=== PATIENT | male | born 1945 | race Two or more races ===

== ENCOUNTER 2016-09-01 12:26 | Inpatient (IN) | payer MEDICARE, OTHER ==
[~2016-09-01] VITALS: Ht 167.6 cm; Wt 76.7 kg
[~2016-09-01 12:26] MED LIST: MULT1TAB52 PO; PANT40TA3 PO; Propranolol Hcl PO
[2016-09-01] MEDS ORDERED: IV NORMAL SALINE 1000ML BAG 1,000 ML IV ONE (12:45)
[2016-09-01] MEDS ORDERED: ONDANSETRON PF 4 MG/2 ML VIAL. IV ONE (12:45)
[2016-09-01] MEDS ORDERED: IPRATRPIUM/ALBUTEROL 0.5/2.5MG 3 ML NEBU. NEB ONE (12:45)
[2016-09-01] MEDS ORDERED: ASPIRIN ENTERIC COATED 325 MG TABLET.DR. PO ONE (12:45)
[2016-09-01 13:13] LABS: BASO # 0.1 x10^3/uL (0.0-0.2); BASO % 0 % (0-3); EOS % 0 % (0-3); HEMATOCRIT 37.8 % (39.0-53.0); HEMOGLOBIN 13.2 g/dL (13.0-17.5); LYMPH # 0.6 x10^3/uL (1.0-4.8); LYMPH % 3 % (24-48); MEAN CORPUSCULAR HEMOGLOBIN 36 pg (25-35); MEAN CORPUSCULAR HGB CONC 35 g/dL (31-37); MEAN CORPUSCULAR VOLUME 105 fL (79-100); MONO % 8 % (0-9); NEUT % 89 % (31-73); PLATELET COUNT 71 x10^3/uL (140-400); RED BLOOD COUNT 3.61 x10^6/uL (4.30-5.70); RED CELL DISTRIBUTION WIDTH 15.7 % (11.5-14.5); WHITE BLOOD COUNT 18.4 x10^3/uL (4.0-11.0)
[2016-09-01 13:19] LABS: CALCIUM 8.2 mg/dL (8.5-10.1); CREATININE 1.2 mg/dL (0.7-1.3); POTASSIUM 3.9 mmol/L (3.5-5.1)
[2016-09-01 13:23] LABS: INR 1.6 (0.8-1.1)
[2016-09-01 13:25] LABS: ALBUMIN/GLOBULIN RATIO 0.8 (1.0-1.7); MAGNESIUM 1.3 mg/dL (1.8-2.4); TOTAL BILIRUBIN 3.9 mg/dL (0.2-1.0); TOTAL PROTEIN 6.9 g/dL (6.4-8.2)
--- NOTE | 2016-09-01 13:31 | PHYS DOC ---
Past Medical History Past Medical History: Hypertension, Hypothyroid Past Surgical History: Other Additional Past Surgical Histo: esophogeal varisces Alcohol Use: Occasionally Drug Use: Marijuana Adult General Chief Complaint Chief Complaint: NAUSEA/VOMITING/DIARRHA HPI HPI Patient is a 71 year old female presenting to the emergency department for evaluation of nausea vomiting diarrhea and near syncope. He says that he was playing golf and felt intense nausea warm and vomited several times. He then had some diarrhea as well and he nearly passed out. Patient denies any fevers but has some chills. No shortness of breath. He denies any cardiac history. Patient says he feels better as he received some IV fluids and 4 mg Zofran ODT. He is in no obvious distress with normal vital signs. Review of Systems Review of Systems Constitutional: Denies fever or chills [] Eyes: Denies change in visual acuity, redness, or eye pain [] HENT: Denies nasal congestion or sore throat [] Respiratory: Denies cough. + shortness of breath [] Cardiovascular: No additional information not addressed in HPI [] GI: Denies abdominal pain. + nausea, vomiting, diarrhea [] : Denies dysuria or hematuria [] Musculoskeletal: Denies back pain or joint pain [] Integument: Denies rash or skin lesions [] Neurologic: Denies headache, focal weakness or sensory changes [] Current Medications Current Medications Current Medications Medications (Trade) Dose Ordered Sig/Torres Start Time Stop Time Status Last Admin Dose Admin Albuterol/ Ipratropium (Duoneb) 3 ml 1X ONCE 09/01/16 12:45 09/01/16 12:46 DC 09/01/16 13:42 3 ML Aspirin (Ecotrin) 325 mg 1X ONCE 09/01/16 12:45 09/01/16 12:46 DC 09/01/16 13:24 325 MG Enoxaparin Sodium (Lovenox 80mg Syringe) 70 mg 1X ONCE 09/01/16 14:00 09/01/16 14:01 DC Fentanyl Citrate (Fentanyl 2ml Vial) 50 mcg PRN Q2HR PRN 09/01/16 13:45 09/02/16 13:44 Ondansetron HCl (Zofran) 4 mg PRN Q8HRS PRN 09/01/16 13:45 09/02/16 13:44 Sodium Chloride 1,000 ml @ 1,000 mls/hr 1X ONCE 09/01/16 12:45 09/01/16 13:44 DC 09/01/16 13:23 1,000 MLS/HR Allergies Allergies Allergies Coded Allergies Type Severity Reaction Last Updated Verified No Known Drug Allergies 11/08/13 No Physical Exam Physical Exam Constitutional: Well developed, well nourished, no acute distress, non-toxic appearance. [] HENT: Normocephalic, atraumatic, bilateral external ears normal, oropharynx moist, no oral exudates, nose normal. [] Eyes: PERRLA, EOMI, conjunctiva normal, no discharge. [] Neck: Normal range of motion, no tenderness, supple, no stridor. [] Cardiovascular:Heart rate regular rhythm, no murmur [] Lungs & Thorax: Bilateral breath sounds clear to auscultation [] Abdomen: Bowel sounds normal, soft, no tenderness, no masses, no pulsatile masses. [] Skin: Warm, dry, no erythema, no rash. [] Back: No tenderness, no CVA tenderness. [] Extremities: No tenderness, no cyanosis, no clubbing, ROM intact, no edema. [] Neurologic: Alert and oriented X 3, normal motor function, normal sensory function, no focal deficits noted. [] Current Patient Data Vital Signs Vital Signs Date Time Temp Pulse Resp B/P (MAP) Pulse Ox O2 Delivery O2 Flow Rate FiO2 09/01/16 13:45 96 Room Air 09/01/16 12:28 99.4 91 18 161/81 (107) 99.4 Lab Values Laboratory Tests Test 09/01/16 12:55 White Blood Count 18.4 x10^3/uL (4.0-11.0) H Red Blood Count 3.61 x10^6/uL (4.30-5.70) L Hemoglobin 13.2 g/dL (13.0-17.5) Hematocrit 37.8 % (39.0-53.0) L Mean Corpuscular Volume 105 fL (79-100) H Mean Corpuscular Hemoglobin 36 pg (25-35) H Mean Corpuscular Hemoglobin Concent 35 g/dL (31-37) Red Cell Distribution Width 15.7 % (11.5-14.5) H Platelet Count 71 x10^3/uL (140-400) L Neutrophils (%) (Auto) 89 % (31-73) H Lymphocytes (%) (Auto) 3 % (24-48) L Monocytes (%) (Auto) 8 % (0-9) Eosinophils (%) (Auto) 0 % (0-3) Basophils (%) (Auto) 0 % (0-3) Neutrophils # (Auto) 16.3 x10^3uL (1.8-7.7) H Lymphocytes # (Auto) 0.6 x10^3/uL (1.0-4.8) L Monocytes # (Auto) 1.4 x10^3/uL (0.0-1.1) H Eosinophils # (Auto) 0.0 x10^3/uL (0.0-0.7) Basophils # (Auto) 0.1 x10^3/uL (0.0-0.2) Platelet Estimate Pending Prothrombin Time 18.0 SEC (11.7-14.0) H Prothrombin Time INR 1.6 (0.8-1.1) H PTT 31 SEC (24-38) Sodium Level 134 mmol/L (136-145) L Potassium Level 3.9 mmol/L (3.5-5.1) Chloride Level 99 mmol/L (98-107) Carbon Dioxide Level 23 mmol/L (21-32) Anion Gap 12 (6-14) Blood Urea Nitrogen 13 mg/dL (8-26) Creatinine 1.2 mg/dL (0.7-1.3) Estimated GFR (Cockcroft-Gault) 60.0 BUN/Creatinine Ratio 11 (6-20) Glucose Level 144 mg/dL (70-99) H Calcium Level 8.2 mg/dL (8.5-10.1) L Magnesium Level 1.3 mg/dL (1.8-2.4) L Total Bilirubin 3.9 mg/dL (0.2-1.0) H Aspartate Amino Transferase (AST) 47 U/L (15-37) H Alanine Aminotransferase (ALT) 34 U/L (16-63) Alkaline Phosphatase 98 U/L (46-116) Creatine Kinase 177 U/L (39-308) Troponin I Quantitative 0.069 ng/mL (0.000-0.055) JP-Mei-S-Type Natriuretic Peptide 738 pg/mL (0-124) H Total Protein 6.9 g/dL (6.4-8.2) Albumin 3.0 g/dL (3.4-5.0) L Albumin/Globulin Ratio 0.8 (1.0-1.7) L Lipase 123 U/L (73-393) Ethyl Alcohol Level < 10 mg/dL (0-10) Laboratory Tests 09/01/16 12:55 Laboratory Tests 09/01/16 12:55 EKG EKG Sinus rhythm at 88 bpm with leftward axis no obvious ST elevation or depression with inverted T waves in leads aVL 1 in V1 through V4. Radiology/Procedures Radiology/Procedures EXAM: Chest one view. HISTORY: Weakness, chest pain. COMPARISON: None. FINDINGS: A frontal view of the chest is obtained. There are no confluent infiltrates. There is no pneumothorax or pleural effusion. The heart is mildly enlarged. The right hemidiaphragm is mildly elevated. IMPRESSION: 1. Mild cardiomegaly. DICTATED and SIGNED BY: RITA ETIENNE MD DATE: 09/01/16 6488 Course & Med Decision Making Course & Med Decision Making Patient with likely gastroenteritis however he has abnormal EKG in the setting of near syncope. EKG is abnormal and he has an elevated troponin. Patient has an STEMI based off criteria and concerning atypical symptoms for ACS. Pulmonary and was him is a consideration as well however given a normal pulse rate and oxygen saturation felt to be less likely. I spoke to the rn allergy and he agreed with admission and will start Lovenox with aspirin ready given in the emergency department. Dragon Disclaimer Dragon Disclaimer This electronic medical record was generated, in whole or in part, using a voice recognition dictation system. Departure Departure Impression: Primary Impression: NSTEMI (non-ST elevated myocardial infarction) Additional Impressions: Near syncope Nausea & vomiting Disposition: ADMITTED INPATIENT Admitting Physician: Joaquim Langford Condition: GUARDED Referrals: UNKNOWN PCP NAME (PCP) Problem Qualifiers MONTANA SHANNON DO Sep 01, 2016 13:31
[2016-09-01] MEDS ORDERED: fentaNYL PF VIAL 100 MCG/2 ML VIAL IV PRN (13:45)
[2016-09-01] MEDS ORDERED: ONDANSETRON PF 4 MG/2 ML VIAL. IV PRN (13:45)
--- NOTE | 2016-09-01 13:49 | RAD ---
EXAM: Chest one view. HISTORY: Weakness, chest pain. COMPARISON: None. FINDINGS: A frontal view of the chest is obtained. There are no confluent infiltrates. There is no pneumothorax or pleural effusion. The heart is mildly enlarged. The right hemidiaphragm is mildly elevated. IMPRESSION: 1. Mild cardiomegaly.
[2016-09-01] MEDS ORDERED: HEPARIN for IV BOLUS 10,000 UNIT/10 ML VIAL. IV ONE (14:30)
[2016-09-01] MEDS ORDERED: HEPARIN for IV BOLUS 10,000 UNIT/10 ML VIAL. IV PRN (14:30)
[2016-09-01] MEDS ORDERED: HEPARIN 25,000UTS/500ML PREMIX 500 ML IV PRN (14:30)
--- NOTE | 2016-09-01 15:04 | ACF ---
Admission Forms Criteria MYOCARDIAL INFARCTION Clinical Indications for Admission to Inpatient Care (Place 'X' for any and all applicable criteria): Admission is indicated for 1 or more of the following (1)(2)(3)(4): [X]I. Acute AL [ ]II. Contraindications and/or Inappropriate clinical situations for Observational Care in patients with Myocardial Infarction, when ANY ONE of the following is required: [ ]a) Patient with High risk of cardiac embolism (e.g, patients with previous cardiac embolism, LVEF < 40%, age >75 and patients with prosthetic valve) 18 [ ]b) Patient with Moderate risk including DM patient, CAD and patient aged 65-75 18 [ ]c) Patient with any change in cardiac biomarker especially troponin should be managed as high risk in an inpatient setting 19 [ ]d) Physician judgement irrespective of ECG and other diagnostic findings 20 [ ]III.General contraindications and/or Inappropriate clinical situations for Observational Care in patients with Myocardial Infarction, when ANY ONE of the following is required: [ ]a) Prediction of prolongation of LOS based on ANY ONE of the following may be considered as a contraindication for observational care 2, 3, 4, 5, 6, 7, 8, 9, 10, 11 [ ]i) Age > 65 yrs. [ ]ii) Patient arriving by ambulance [ ]iii) Patient with high acuity [ ]iv) Patient requiring vital sign monitoring [ ]v) Patient on IV medication [ ]b) Systolic blood pressures greater than or equal to 180mmHg 3,12 [ ]c) Patient with altered mental status including delirium and other alteration of consciousness, (3) [ ]d) Patient whose discharge disposition will be to a assisted home or rehabilitation home should not be managed in Emergency Department Observation Unit. CMS rule requires 3 days hospital stay before such placement. 3,13 [ ]e) Patient with failure to thrive due to broad array of etiologies 3 ,16,17 [ ]f) Inability to ambulate 3,14 Extended stay beyond goal length of stay may be needed for (1)(18)(20)(24)(25): [ ]a) Hemodynamic instability, persisting symptoms after intensive medical management, or recurring severe, prolonged symptoms [ ]b) Intravascular procedural complications such as acute vessel closure, stent thrombosis, stent malposition, or vessel dissection (26)(27)(28) [ ]c) Extravascular procedural complications such as retroperitoneal hematoma , pericardial effusion, or cardiac tamponade [ ]d) Entry site complications causing bleeding, hematoma or distal ischemia and requiring ongoing monitoring, surgical repair or surgical thrombectomy. Dangerous arrhythmia [ ]e) Complicated percutaneous coronary intervention (e.g., unsuccessful percutaneous coronary intervention or percutaneous coronary intervention of non- [place] vessel) [ ]f) Urgent or emergent surgery for complications of AL (e.g., ventricular rupture, valvular insufficiency) [ ]g) Surgical revascularization via coronary artery bypass graft [ ]h) Heart failure (e.g., pulmonary edema) [ ]i) Unstable pulmonary comorbidities, including COPD or pneumonia (31) [ ]j) Acute renal failure The original [employer] content created by [employer] has been revised. The portions of the content which have been revised are identified through the use of italic text or in bold, and [facility] has neither reviewed nor approved the modified material. All other unmodified content is copyright [facility], [facility] [employer] Please see references footnoted in the original [facility] [employer] edition 2016 Admission Criteria Met?: Yes AMEENA WILKINSON Sep 01, 2016 15:03
--- NOTE | 2016-09-01 15:05 | ACF ---
Admit Criteria Forms Admit Criteria Forms Admit Criteria Forms MYOCARDIAL INFARCTION Clinical Indications for Admission to Inpatient Care (Place 'X' for any and all applicable criteria): Admission is indicated for 1 or more of the following (1)(2)(3)(4): [X]I. Acute [place] [ ]II. Contraindications and/or Inappropriate clinical situations for Observational Care in patients with Myocardial Infarction, when ANY ONE of the following is required: [ ]a) Patient with High risk of cardiac embolism (e.g, patients with previous cardiac embolism, LVEF < 40%, age >75 and patients with prosthetic valve) 18 [ ]b) Patient with Moderate risk including DM patient, CAD and patient aged 65-75 18 [ ]c) Patient with any change in cardiac biomarker especially troponin should be managed as high risk in an inpatient setting 19 [ ]d) Physician judgement irrespective of ECG and other diagnostic findings 20 [X]III.General contraindications and/or Inappropriate clinical situations for Observational Care in patients with Myocardial Infarction, when ANY ONE of the following is required: [X]a) Prediction of prolongation of LOS based on ANY ONE of the following may be considered as a contraindication for observational care 2, 3, 4, 5, 6, 7, 8, 9, 10, 11 [X]i) Age > 65 yrs. [ ]ii) Patient arriving by ambulance [ ]iii) Patient with high acuity [ ]iv) Patient requiring vital sign monitoring [ ]v) Patient on IV medication [ ]b) Systolic blood pressures greater than or equal to 180mmHg 3,12 [ ]c) Patient with altered mental status including delirium and other alteration of consciousness, (3) [ ]d) Patient whose discharge disposition will be to a snf home or rehabilitation home should not be managed in Emergency Department Observation Unit. CMS rule requires 3 days hospital stay before such placement. 3,13 [ ]e) Patient with failure to thrive due to broad array of etiologies 3 ,16,17 [ ]f) Inability to ambulate 3,14 Extended stay beyond goal length of stay may be needed for (1)(18)(20)(24)(25): [ ]a) Hemodynamic instability, persisting symptoms after intensive medical management, or recurring severe, prolonged symptoms [ ]b) Intravascular procedural complications such as acute vessel closure, stent thrombosis, stent malposition, or vessel dissection (26)(27)(28) [ ]c) Extravascular procedural complications such as retroperitoneal hematoma , pericardial effusion, or cardiac tamponade [ ]d) Entry site complications causing bleeding, hematoma or distal ischemia and requiring ongoing monitoring, surgical repair or surgical thrombectomy. Dangerous arrhythmia [ ]e) Complicated percutaneous coronary intervention (e.g., unsuccessful percutaneous coronary intervention or percutaneous coronary intervention of non- [place] vessel) [ ]f) Urgent or emergent surgery for complications of OH (e.g., ventricular rupture, valvular insufficiency) [ ]g) Surgical revascularization via coronary artery bypass graft [ ]h) Heart failure (e.g., pulmonary edema) [ ]i) Unstable pulmonary comorbidities, including COPD or pneumonia (31) [ ]j) Acute renal failure The original [employer] content created by [employer] has been revised. The portions of the content which have been revised are identified through the use of italic text or in bold, and [employer] has neither reviewed nor approved the modified material. All other unmodified content is copyright [facility] Please see references footnoted in the original [facility] edition 2016 PAN YAN Sep 01, 2016 15:05
[2016-09-01 15:18] LABS: % BASOS 1 % (0-3); % EOS 1 % (0-5)
[2016-09-01 15:20] LABS: PLT ESTIMATE DECREASED (ADEQUATE)
--- NOTE | 2016-09-01 15:51 | PDOC2 ---
CONSULT Date of Consult Date of Consult DATE: 09/01/16 TIME: 15:42 Reason for Consult Reason for Consult: Near syncope Referring Physician Referring Physician: Dr. Calloway Identification/Chief Complaint Chief Complaint Near syncope, nausea and vomiting. Source Source: Patient History of Present Illness Reason for Visit: The patient is a pleasant 71-year-old male who after coughing this morning developed episodes of near-syncope, nausea and vomiting. Patient denies a atypical chest pain or shortness of breath. However he states he became very diaphoretic. He is brought to the emergency room and initial EKG showed a sinus rhythm with diffuse nonspecific ST-T wave changes. Troponin is 0.069. Platelet count is decreased at 71, potassium 3.9 creatinine of 1.2 magnesium 1.3. After fluids the patient is feeling much better and is resting comfortably. He denies any history of coronary artery disease, cardiac arrhythmias or heart failure. He does have a history of hypertension and hypo-thyroidism. Past Medical History Cardiovascular: HTN GI: Other (esophageal varices) Endocrine: Hypothyroidism Past Surgical History Past Surgical History: No pertinent history Family History Family History: Hypertension Social History No ALCOHOL: occassional Current Problem List Problem List Problems Medical Problems: (1) Nausea & vomiting Status: Acute (2) Near syncope Status: Acute (3) NSTEMI (non-ST elevated myocardial infarction) Status: Acute Current Medications Current Medications Current Medications Albuterol/ Ipratropium (Duoneb) 3 ml 1X ONCE NEB Last administered on 13:42; Start 09/01/16 at 12:45; Stop 09/01/16 at 12:46; Status DC Aspirin (Ecotrin) 325 mg 1X ONCE PO Last administered on 09/01/16 13:24; Start 09/01/16 at 12:45; Stop 09/01/16 at 12:46; Status DC Ondansetron HCl (Zofran) 4 mg 1X ONCE IV Last administered on 09/01/16 13:23 ; Start 09/01/16 at 12:45; Stop 09/01/16 at 12:46; Status DC Sodium Chloride 1,000 ml @ 1,000 mls/hr 1X ONCE IV Last administered on 13:23; Start 09/01/16 at 12:45; Stop 09/01/16 at 13:44; Status DC Ondansetron HCl (Zofran) 4 mg PRN Q8HRS PRN IV NAUSEA/VOMITING; Start 09/01/16 at 13:45; Stop 09/02/16 at 13:44 Fentanyl Citrate (Fentanyl 2ml Vial) 50 mcg PRN Q2HR PRN IV PAIN; Start at 13:45; Stop 09/02/16 at 13:44 Enoxaparin Sodium (Lovenox 80mg Syringe) 70 mg 1X ONCE SQ Last administered on 09/01/16 15:04; Start 09/01/16 at 14:00; Stop 09/01/16 at 14:01; Status DC Heparin Sodium (Porcine) (Heparin Sodium) 4,000 unit 1X ONCE IV Last administered on 09/01/16 15:06; Start 09/01/16 at 14:30; Stop 09/01/16 at 15:39 ; Status DC Heparin Sodium/ Dextrose 500 ml @ 0 mls/hr CONT PRN IV SEE I/O RECORD Last administered on 09/01/16 15:05; Start 09/01/16 at 14:30; Stop 09/01/16 at 15:39 ; Status DC Heparin Sodium (Porcine) (Heparin Sodium) 1,900 unit PRN Q6HRS PRN IV FOR UFH LEVEL LESS THAN 0.2; Start 09/01/16 at 14:30; Stop 09/01/16 at 15:39; Status DC Sodium Chloride 1,000 ml @ 75 mls/hr [id number] IV ; Start 09/01/16 at 15:35 Magnesium Sulfate/ Dextrose 50 ml @ 25 mls/hr 1X ONCE IV ; Start 09/01/16 at 15 :45; Stop 09/01/16 at 17:44; Status UNV Active Scripts Active Multivitamins (Multivitamin) 1 Each Tablet 1 Tab PO DAILY [Propranolol Hcl] 10 MG Tablet 10 Mg PO BID Protonix (Pantoprazole Sodium) 40 Mg Tablet 40 Mg PO DAILYAC Allergies Allergies: Coded Allergies: No Known Drug Allergies (Unverified , 11/08/13) ROS Respiratory: YES: Shortness of breath, SOB with excertion, Other Cardiovascular: yes Other (near syncope) Gastrointestinal: Yes Nausea, Yes Vomiting Physical Exam General: mild distress HEENT: Atraumatic Lungs: Clear to auscultation Heart: Regular rate Abdomen: Normal bowel sounds Extremities: No clubbing Vitals VITALS Vital Signs Date Time Temp Pulse Resp B/P (MAP) Pulse Ox O2 Delivery O2 Flow Rate FiO2 09/01/16 15:10 91 18 158/81 (106) 96 Room Air 09/01/16 12:28 99.4 99.4 Labs Labs Laboratory Tests Test 09/01/16 12:55 White Blood Count 18.4 x10^3/uL (4.0-11.0) Red Blood Count 3.61 x10^6/uL (4.30-5.70) Hemoglobin 13.2 g/dL (13.0-17.5) Hematocrit 37.8 % (39.0-53.0) Mean Corpuscular Volume 105 fL (79-100) Mean Corpuscular Hemoglobin 36 pg (25-35) Mean Corpuscular Hemoglobin Concent 35 g/dL (31-37) Red Cell Distribution Width 15.7 % (11.5-14.5) Platelet Count 71 x10^3/uL (140-400) Neutrophils (%) (Auto) 89 % (31-73) Lymphocytes (%) (Auto) 3 % (24-48) Monocytes (%) (Auto) 8 % (0-9) Eosinophils (%) (Auto) 0 % (0-3) Basophils (%) (Auto) 0 % (0-3) Neutrophils # (Auto) 16.3 x10^3uL (1.8-7.7) Lymphocytes # (Auto) 0.6 x10^3/uL (1.0-4.8) Monocytes # (Auto) 1.4 x10^3/uL (0.0-1.1) Eosinophils # (Auto) 0.0 x10^3/uL (0.0-0.7) Basophils # (Auto) 0.1 x10^3/uL (0.0-0.2) Prothrombin Time 18.0 SEC (11.7-14.0) Prothromb Time International Ratio 1.6 (0.8-1.1) Activated Partial Thromboplast Time 31 SEC (24-38) Sodium Level 134 mmol/L (136-145) Potassium Level 3.9 mmol/L (3.5-5.1) Chloride Level 99 mmol/L (98-107) Carbon Dioxide Level 23 mmol/L (21-32) Anion Gap 12 (6-14) Blood Urea Nitrogen 13 mg/dL (8-26) Creatinine 1.2 mg/dL (0.7-1.3) Estimated GFR (Cockcroft-Gault) 60.0 BUN/Creatinine Ratio 11 (6-20) Glucose Level 144 mg/dL (70-99) Calcium Level 8.2 mg/dL (8.5-10.1) Magnesium Level 1.3 mg/dL (1.8-2.4) Total Bilirubin 3.9 mg/dL (0.2-1.0) Aspartate Amino Transf (AST/SGOT) 47 U/L (15-37) Alanine Aminotransferase (ALT/SGPT) 34 U/L (16-63) Alkaline Phosphatase 98 U/L (46-116) Creatine Kinase 177 U/L (39-308) Troponin I Quantitative 0.069 ng/mL (0.000-0.055) RQ-Cgx-W-Type Natriuretic Peptide 738 pg/mL (0-124) Total Protein 6.9 g/dL (6.4-8.2) Albumin 3.0 g/dL (3.4-5.0) Albumin/Globulin Ratio 0.8 (1.0-1.7) Lipase 123 U/L (73-393) Ethyl Alcohol Level < 10 mg/dL (0-10) Laboratory Tests Test 09/01/16 12:55 White Blood Count 18.4 x10^3/uL (4.0-11.0) Red Blood Count 3.61 x10^6/uL (4.30-5.70) Hemoglobin 13.2 g/dL (13.0-17.5) Hematocrit 37.8 % (39.0-53.0) Mean Corpuscular Volume 105 fL (79-100) Mean Corpuscular Hemoglobin 36 pg (25-35) Mean Corpuscular Hemoglobin Concent 35 g/dL (31-37) Red Cell Distribution Width 15.7 % (11.5-14.5) Platelet Count 71 x10^3/uL (140-400) Neutrophils (%) (Auto) 89 % (31-73) Lymphocytes (%) (Auto) 3 % (24-48) Monocytes (%) (Auto) 8 % (0-9) Eosinophils (%) (Auto) 0 % (0-3) Basophils (%) (Auto) 0 % (0-3) Neutrophils # (Auto) 16.3 x10^3uL (1.8-7.7) Lymphocytes # (Auto) 0.6 x10^3/uL (1.0-4.8) Monocytes # (Auto) 1.4 x10^3/uL (0.0-1.1) Eosinophils # (Auto) 0.0 x10^3/uL (0.0-0.7) Basophils # (Auto) 0.1 x10^3/uL (0.0-0.2) Prothrombin Time 18.0 SEC (11.7-14.0) Prothromb Time International Ratio 1.6 (0.8-1.1) Activated Partial Thromboplast Time 31 SEC (24-38) Sodium Level 134 mmol/L (136-145) Potassium Level 3.9 mmol/L (3.5-5.1) Chloride Level 99 mmol/L (98-107) Carbon Dioxide Level 23 mmol/L (21-32) Anion Gap 12 (6-14) Blood Urea Nitrogen 13 mg/dL (8-26) Creatinine 1.2 mg/dL (0.7-1.3) Estimated GFR (Cockcroft-Gault) 60.0 BUN/Creatinine Ratio 11 (6-20) Glucose Level 144 mg/dL (70-99) Calcium Level 8.2 mg/dL (8.5-10.1) Magnesium Level 1.3 mg/dL (1.8-2.4) Total Bilirubin 3.9 mg/dL (0.2-1.0) Aspartate Amino Transf (AST/SGOT) 47 U/L (15-37) Alanine Aminotransferase (ALT/SGPT) 34 U/L (16-63) Alkaline Phosphatase 98 U/L (46-116) Creatine Kinase 177 U/L (39-308) Troponin I Quantitative 0.069 ng/mL (0.000-0.055) OZ-Ero-C-Type Natriuretic Peptide 738 pg/mL (0-124) Total Protein 6.9 g/dL (6.4-8.2) Albumin 3.0 g/dL (3.4-5.0) Albumin/Globulin Ratio 0.8 (1.0-1.7) Lipase 123 U/L (73-393) Ethyl Alcohol Level < 10 mg/dL (0-10) Images Images Chest x-ray shows a mild cardiomegaly with no acute processes. Assessment/Plan Assessment/Plan 1. Near syncope. Patient's rhythm has been stable. He is feeling better after IV fluids. We'll continue IV fluids and monitoring. 2. Abnormal EKG. Troponin mildly elevated at 0.069. Mild cardiomegaly on chest x -ray. At this time has patient has been treated with aspirin and 1 dose of Lovenox. We'll rule out for myocardial infarction. Patient's EKG is quite concerning for possible coronary disease. Patient will probably require cardiac catheterization in the morning. Risks and benefits of catheterization were discussed with the patient. 3. Hypertension. Continue present medications and monitoring. 4. Hypothyroidism. Continue replacement and monitoring. 5. Hypomagnesemia. Magnesium level I.3. Replace and recheck in the morning. 6. Mild thrombocytopenia. Initial platelet count of 71. We'll recheck in the morning. 7. Uncertain cholesterol level. We'll recheck a lipid panel in the morning. 8. History of esophageal varices. Thank you for allowing us to participate in the care of your patient. ALONSO REDDY MD Sep 01, 2016 15:51
[2016-09-01] MEDS ORDERED: MAGNESIUM SULFATE 2GM 50 ML IV ONE (16:00)
[2016-09-01 16:12] LABS: ANISOCYTOSIS SLIGHT; OVALOCYTES FEW; POIKILOCYTOSIS SLIGHT
[2016-09-01 16:13] LABS: HOWELL-JOLLY BODIES PRESENT; SCHISTOCYTES FEW
[2016-09-01] MEDS ORDERED: hydrALAZINE 20 MG/ML VIAL. IVP PRN (16:30)
[2016-09-01 16:31] VITALS: BP 184/84
[2016-09-01] MEDS: ACETAMINOPHEN 325 MG TABLET. PO PRN (16:50)
[2016-09-01] MEDS: METOPROLOL TART IMMED RELEASE 25 MG TABLET. PO SCH (16:53)
[2016-09-01] MEDS: IV NORMAL SALINE 1000ML BAG 1,000 ML IV SCH (16:54)
[2016-09-01 18:05] VITALS: BP 174/81
[2016-09-01] MEDS ORDERED: PHYTONADIONE (VIT K1) 10 MG in IV NORMAL SALINE 50ML 50 ML IV ONE (18:30)
[2016-09-01 19:50] VITALS: BP 114/51
--- NOTE | 2016-09-01 20:02 | PDOC1 ---
History and Physical Date of Admission Date of Admission DATE: 09/01/16 TIME: 20:01 Identification/Chief Complaint Chief Complaint nausea, dizzy, vomited Problems: Source Source: Chart review, Patient History of Present Illness History of Present Illness Mr. Diego is a 71 year old admit from the emergency department for evaluation of nausea vomiting diarrhea and near syncope. He was winning money at [employer] today, then had acute nausea warm and vomited, loose stool X1, drank a gatorade, and ate a protein bar. Was weak and dizzy and felt unwell He has no chest pain and no prior Hx CAD his father at a young age, no known FH of CAD Past Medical History Cardiovascular: HTN Pulmonary: No pertinent hx GI: Other (esophageal varices) Heme/Onc: No pertinent hx Hepatobiliary: No pertinent hx Psych: No pertinent hx Rheumatologic: No pertinent hx Infectious disease: No pertinent hx ENT: No pertinent hx Renal/: No pertinent hx Endocrine: Hypothyroidism Dermatology: No pertinent hx Past Surgical History Past Surgical History: No pertinent history Family History Family History: Hypertension Social History Smoke: No ALCOHOL: rare Drugs: None Current Problem List Problem List Problems Medical Problems: (1) Nausea & vomiting Status: Acute (2) Near syncope Status: Acute (3) NSTEMI (non-ST elevated myocardial infarction) Status: Acute Problems: Current Medications Current Medications Current Medications Albuterol/ Ipratropium (Duoneb) 3 ml 1X ONCE NEB Last administered on 13:42; Start 09/01/16 at 12:45; Stop 09/01/16 at 12:46; Status DC Aspirin (Ecotrin) 325 mg 1X ONCE PO Last administered on 09/01/16 13:24; Start 09/01/16 at 12:45; Stop 09/01/16 at 12:46; Status DC Ondansetron HCl (Zofran) 4 mg 1X ONCE IV Last administered on 09/01/16 13:23 ; Start 09/01/16 at 12:45; Stop 09/01/16 at 12:46; Status DC Sodium Chloride 1,000 ml @ 1,000 mls/hr 1X ONCE IV Last administered on 13:23; Start 09/01/16 at 12:45; Stop 09/01/16 at 13:44; Status DC Ondansetron HCl (Zofran) 4 mg PRN Q8HRS PRN IV NAUSEA/VOMITING Last administered on 09/01/16 17:51; Start 09/01/16 at 13:45; Stop 09/02/16 at 13:44 Fentanyl Citrate (Fentanyl 2ml Vial) 50 mcg PRN Q2HR PRN IV PAIN; Start at 13:45; Stop 09/02/16 at 13:44 Enoxaparin Sodium (Lovenox 80mg Syringe) 70 mg 1X ONCE SQ Last administered on 09/01/16 15:04; Start 09/01/16 at 14:00; Stop 09/01/16 at 14:01; Status DC Heparin Sodium (Porcine) (Heparin Sodium) 4,000 unit 1X ONCE IV Last administered on 09/01/16 15:06; Start 09/01/16 at 14:30; Stop 09/01/16 at 15:39 ; Status DC Heparin Sodium/ Dextrose 500 ml @ 0 mls/hr CONT PRN IV SEE I/O RECORD Last administered on 09/01/16 15:05; Start 09/01/16 at 14:30; Stop 09/01/16 at 15:39 ; Status DC Heparin Sodium (Porcine) (Heparin Sodium) 1,900 unit PRN Q6HRS PRN IV FOR UFH LEVEL LESS THAN 0.2; Start 09/01/16 at 14:30; Stop 09/01/16 at 15:39; Status DC Sodium Chloride 1,000 ml @ 75 mls/hr [id number] IV Last administered on 16:54; Start 09/01/16 at 15:35 Magnesium Sulfate/ Dextrose 50 ml @ 25 mls/hr 1X ONCE IV Last administered on 09/01/16 16:53; Start 09/01/16 at 16:00; Stop 09/01/16 at 17:59; Status DC Hydralazine HCl (Apresoline) 10 mg PRN Q4HRS PRN IVP ELEVATED BP, SEE COMMENTS ; Start 09/01/16 at 16:30 Metoprolol Tartrate (Lopressor) 25 mg BID PO Last administered on 09/01/16 16: 53; Start 09/01/16 at 16:30 Acetaminophen (Tylenol) 650 mg PRN Q6HRS PRN PO FEVER Last administered on 09/01t 16:50; Start 09/01/16 at 16:45 Phytonadione 10 mg/Sodium Chloride 51 ml @ 102 mls/hr 1X ONCE IV ; Start 09/01 at 18:30; Stop 09/01/16 at 18:59; Status DC Active Scripts Active Multivitamins (Multivitamin) 1 Each Tablet 1 Tab PO DAILY [Propranolol Hcl] 10 MG Tablet 10 Mg PO BID Protonix (Pantoprazole Sodium) 40 Mg Tablet 40 Mg PO DAILYAC Allergies Allergies: Coded Allergies: No Known Drug Allergies (Unverified , 11/08/13) ROS General: No: Chills, Night Sweats, Fatigue, Malaise, Appetite, Other PSYCHOLOGICAL ROS: No: Anxiety, Behavioral Disorder, Concentration difficultie , Decreased libido, Depression, Disorientation, Hallucinations, Hostility, Irritablity, Memory difficulties, Mood Swings, Obsessive thoughts, Physical abuse, Sexual abuse, Sleep disturbances, Suicidal ideation, Other Eyes: No Blurry vision, No Decreased vision, No Double vision, No Dry eyes, No Excessive tearing, No Eye Pain, No Itchy Eyes, No Loss of vision, No Photophobia , No Scotomata, No Uses contacts, No Uses glasses, No Other HEENT: No: Heacaches, Visual Changes, Hearing change, Nasal congestion, Nasal discharge, Oral lesions, Sinus pain, Sore Throat, Epistaxis, Sneezing, Snoring, Tinnitus, Vertigo, Vocal changes, Other Breast: No New/Changing Breast Lumps, No Nipple changes, No Nipple discharge, No Other Respiratory: No: Cough, Hemoptysis, Orthopnea, Pleuritic Pain, Shortness of breath, SOB with excertion, Sputum Changes, Stridor, Tachypnea, Wheezing, Other Cardiovascular: No Chest Pain, No Palpitations, No Orthopnea, No Paroxysmal Noc. Dyspnea, No Edema, No Lt Headedness, No Other Gastrointestinal: Yes Nausea, Yes Diarrhea, No Vomiting, No Abdominal Pain, No Constipation, No Melena, No Hematochezia, No Other Genitourinary: No Dysuria, No Frequency, No Incontinence, No Hematuria, No Retention, No Discharge, No Urgency, No Pain, No Flank Pain, No Other, No , No , No , No , No , No , No Musculoskeletal: No Gait Disturbance, No Joint Pain, No Joint Stiffness, No Joint Swelling, No Muscle Pain, No Muscular Weakness, No Pain In:, No Swelling In:, No Other Neurological: Yes Dizziness, No Behavorial Changes, No Bowel/Bladder ControlChng, No Confusion, No Gait Disturbance, No Headaches, No Impaired Coord/balance, No Memory Loss, No Numbness/Tingling, No Seizures, No Speech Problems, No Tremors, No Visual Changes, No Weakness, No Other Skin: No Dry Skin, No Eczema, No Hair Changes, No Lumps, No Mole Changes, No Mottling, No Nail Changes, No Pruritus, No Rash, No Skin Lesion Changes, No Other, No Acne Physical Exam General: Alert, Oriented X3, Cooperative, No acute distress HEENT: Atraumatic, PERRLA, EOMI, Mucous membr. moist/pink Lungs: Clear to auscultation, Normal air movement Heart: no gallops Abdomen: Normal bowel sounds, Soft Extremities: No edema, Normal pulses Skin: No significant lesion Neuro: Normal speech, Normal tone, Sensation intact, Cranial nerves 3-12 NL Psych/Mental Status: Mental status NL, Mood NL Vitals Vitals Vital Signs Date Time Temp Pulse Resp B/P (MAP) Pulse Ox O2 Delivery O2 Flow Rate FiO2 09/01/16 18:05 100.8 90 174/81 (112) 95 100.8 09/01/16 17:16 Room Air 09/01/16 16:31 17 Labs Labs Laboratory Tests Test 09/01/16 12:55 White Blood Count 18.4 x10^3/uL (4.0-11.0) Red Blood Count 3.61 x10^6/uL (4.30-5.70) Hemoglobin 13.2 g/dL (13.0-17.5) Hematocrit 37.8 % (39.0-53.0) Mean Corpuscular Volume 105 fL (79-100) Mean Corpuscular Hemoglobin 36 pg (25-35) Mean Corpuscular Hemoglobin Concent 35 g/dL (31-37) Red Cell Distribution Width 15.7 % (11.5-14.5) Platelet Count 71 x10^3/uL (140-400) Neutrophils (%) (Auto) 89 % (31-73) Lymphocytes (%) (Auto) 3 % (24-48) Monocytes (%) (Auto) 8 % (0-9) Eosinophils (%) (Auto) 0 % (0-3) Basophils (%) (Auto) 0 % (0-3) Neutrophils # (Auto) 16.3 x10^3uL (1.8-7.7) Lymphocytes # (Auto) 0.6 x10^3/uL (1.0-4.8) Monocytes # (Auto) 1.4 x10^3/uL (0.0-1.1) Eosinophils # (Auto) 0.0 x10^3/uL (0.0-0.7) Basophils # (Auto) 0.1 x10^3/uL (0.0-0.2) Segmented Neutrophils % 84 % (35-66) Band Neutrophils % 3 % (0-9) Lymphocytes % 4 % (24-48) Monocytes % 7 % (0-10) Eosinophils % 1 % (0-5) Basophils % 1 % (0-3) Platelet Estimate Decreased (ADEQUATE) Giant Platelets Occ Poikilocytosis Slight Anisocytosis Slight Macrocytosis Slight Ovalocytes Few Grace-Anza Bodies Present Schistocytes Few Prothrombin Time 18.0 SEC (11.7-14.0) Prothromb Time International Ratio 1.6 (0.8-1.1) Activated Partial Thromboplast Time 31 SEC (24-38) Sodium Level 134 mmol/L (136-145) Potassium Level 3.9 mmol/L (3.5-5.1) Chloride Level 99 mmol/L (98-107) Carbon Dioxide Level 23 mmol/L (21-32) Anion Gap 12 (6-14) Blood Urea Nitrogen 13 mg/dL (8-26) Creatinine 1.2 mg/dL (0.7-1.3) Estimated GFR (Cockcroft-Gault) 60.0 BUN/Creatinine Ratio 11 (6-20) Glucose Level 144 mg/dL (70-99) Calcium Level 8.2 mg/dL (8.5-10.1) Magnesium Level 1.3 mg/dL (1.8-2.4) Total Bilirubin 3.9 mg/dL (0.2-1.0) Aspartate Amino Transf (AST/SGOT) 47 U/L (15-37) Alanine Aminotransferase (ALT/SGPT) 34 U/L (16-63) Alkaline Phosphatase 98 U/L (46-116) Creatine Kinase 177 U/L (39-308) Troponin I Quantitative 0.069 ng/mL (0.000-0.055) NS-Kya-T-Type Natriuretic Peptide 738 pg/mL (0-124) Total Protein 6.9 g/dL (6.4-8.2) Albumin 3.0 g/dL (3.4-5.0) Albumin/Globulin Ratio 0.8 (1.0-1.7) Lipase 123 U/L (73-393) Ethyl Alcohol Level < 10 mg/dL (0-10) Laboratory Tests Test 09/01/16 12:55 White Blood Count 18.4 x10^3/uL (4.0-11.0) Red Blood Count 3.61 x10^6/uL (4.30-5.70) Hemoglobin 13.2 g/dL (13.0-17.5) Hematocrit 37.8 % (39.0-53.0) Mean Corpuscular Volume 105 fL (79-100) Mean Corpuscular Hemoglobin 36 pg (25-35) Mean Corpuscular Hemoglobin Concent 35 g/dL (31-37) Red Cell Distribution Width 15.7 % (11.5-14.5) Platelet Count 71 x10^3/uL (140-400) Neutrophils (%) (Auto) 89 % (31-73) Lymphocytes (%) (Auto) 3 % (24-48) Monocytes (%) (Auto) 8 % (0-9) Eosinophils (%) (Auto) 0 % (0-3) Basophils (%) (Auto) 0 % (0-3) Neutrophils # (Auto) 16.3 x10^3uL (1.8-7.7) Lymphocytes # (Auto) 0.6 x10^3/uL (1.0-4.8) Monocytes # (Auto) 1.4 x10^3/uL (0.0-1.1) Eosinophils # (Auto) 0.0 x10^3/uL (0.0-0.7) Basophils # (Auto) 0.1 x10^3/uL (0.0-0.2) Segmented Neutrophils % 84 % (35-66) Band Neutrophils % 3 % (0-9) Lymphocytes % 4 % (24-48) Monocytes % 7 % (0-10) Eosinophils % 1 % (0-5) Basophils % 1 % (0-3) Platelet Estimate Decreased (ADEQUATE) Giant Platelets Occ Poikilocytosis Slight Anisocytosis Slight Macrocytosis Slight Ovalocytes Few Grace-Anza Bodies Present Schistocytes Few Prothrombin Time 18.0 SEC (11.7-14.0) Prothromb Time International Ratio 1.6 (0.8-1.1) Activated Partial Thromboplast Time 31 SEC (24-38) Sodium Level 134 mmol/L (136-145) Potassium Level 3.9 mmol/L (3.5-5.1) Chloride Level 99 mmol/L (98-107) Carbon Dioxide Level 23 mmol/L (21-32) Anion Gap 12 (6-14) Blood Urea Nitrogen 13 mg/dL (8-26) Creatinine 1.2 mg/dL (0.7-1.3) Estimated GFR (Cockcroft-Gault) 60.0 BUN/Creatinine Ratio 11 (6-20) Glucose Level 144 mg/dL (70-99) Calcium Level 8.2 mg/dL (8.5-10.1) Magnesium Level 1.3 mg/dL (1.8-2.4) Total Bilirubin 3.9 mg/dL (0.2-1.0) Aspartate Amino Transf (AST/SGOT) 47 U/L (15-37) Alanine Aminotransferase (ALT/SGPT) 34 U/L (16-63) Alkaline Phosphatase 98 U/L (46-116) Creatine Kinase 177 U/L (39-308) Troponin I Quantitative 0.069 ng/mL (0.000-0.055) LY-Lxy-N-Type Natriuretic Peptide 738 pg/mL (0-124) Total Protein 6.9 g/dL (6.4-8.2) Albumin 3.0 g/dL (3.4-5.0) Albumin/Globulin Ratio 0.8 (1.0-1.7) Lipase 123 U/L (73-393) Ethyl Alcohol Level < 10 mg/dL (0-10) VTE Prophylaxis Ordered VTE Prophylaxis Devices: No VTE Pharmacological Prophylaxi: Yes Assessment/Plan Assessment/Plan 1. Nausea, weakness and diaphoresis, eval for ACS, consulted CV, following troponing, has been heparinized Abnormal EKG. Troponin mildly elevated at 0.069 \poss cardiac cath in AM. 2. Near syncope. poss dehydration iwthout renal dysfunction 3. Hyperbili, check abd US, INR 1.6, eval liver fxn, thrombocytopenia consult GI 4. Hypertension. SARAH LOYD MD Sep 01, 2016 20:02
[2016-09-01 22:55] VITALS: BP 124/76
[2016-09-02] VITALS (13 sets, daily range): BP systolic 94–132; BP diastolic 47–71
[2016-09-02 02:49] LABS: CALCIUM 7.9 mg/dL (8.5-10.1); CREATININE 1.2 mg/dL (0.7-1.3)
[2016-09-02 02:51] LABS: ALBUMIN 2.6 g/dL (3.4-5.0); DIRECT BILIRUBIN 1.1 mg/dL (0.0-0.2); TOTAL BILIRUBIN 3.9 mg/dL (0.2-1.0); TOTAL PROTEIN 6.7 g/dL (6.4-8.2)
[2016-09-02 02:53] LABS: MAGNESIUM 1.7 mg/dL (1.8-2.4)
[2016-09-02 02:55] LABS: CHOLESTEROL/HDL RATIO 1.8
[2016-09-02] MEDS: ACETAMINOPHEN 325 MG TABLET. PO PRN (03:24)
[2016-09-02 03:33] LABS: BASO % 0 % (0-3); EOS % 0 % (0-3); HEMATOCRIT 37.5 % (39.0-53.0); LYMPH # 0.7 x10^3/uL (1.0-4.8); LYMPH % 4 % (24-48); MEAN CORPUSCULAR HEMOGLOBIN 36 pg (25-35); MEAN CORPUSCULAR HGB CONC 35 g/dL (31-37); MEAN CORPUSCULAR VOLUME 105 fL (79-100); MONO % 9 % (0-9); NEUT % 87 % (31-73); PLATELET COUNT 51 x10^3/uL (140-400); RED BLOOD COUNT 3.58 x10^6/uL (4.30-5.70); RED CELL DISTRIBUTION WIDTH 15.4 % (11.5-14.5); WHITE BLOOD COUNT 18.5 x10^3/uL (4.0-11.0)
[2016-09-02] MEDS: IV NORMAL SALINE 1000ML BAG 1,000 ML IV SCH ×4 (04:55→18:25)
[2016-09-02] MEDS ORDERED: AZAT50TA PO (07:50)
[2016-09-02] MEDS ORDERED: SPIR25TA3 PO (07:50)
[2016-09-02] MEDS ORDERED: LEVO75TA5 PO (07:50)
--- NOTE | 2016-09-02 09:24 | RAD ---
EXAM: Right upper quadrant ultrasound. HISTORY: Nausea, vomiting, fever, hepatitis. COMPARISON: 11/07/2013. FINDINGS: Sonographic evaluation of the right upper quadrant was performed. Hepatic parenchymal echotexture is mildly heterogeneous. Mild hepatic surface nodularity is suspected. A hyperechoic mass in the right hepatic lobe measures 2.0 cm and was not seen previously. The gallbladder wall appears mildly thickened at 4 mm. There are no stones or pericholecystic fluid. There is no sonographic Ramirez sign. The common duct measures 3 mm. The visualized portions of the head of the pancreas reveal no abnormality. The right kidney measures 11.5 cm. Cortical thickness and echogenicity are preserved. There is no hydronephrosis. The visualized portions of the abdominal aorta and inferior vena cava are grossly patent and normal in caliber. IMPRESSION: 1. 2 cm hyperechoic mass in the right hepatic lobe. Mild hepatic surface nodularity suggests cirrhotic change. MRI of the abdomen with/without contrast versus multiphase CT is recommended for further characterization. 2. Mild gallbladder wall thickening can be seen in the setting of liver disease. No clear sonographic evidence of acute cholecystitis.
--- NOTE | 2016-09-02 09:27 | PDOC2 ---
GI CONSULT Reason For Consult: Hyperbilirubinemia HPI: HPI: 71 y/o male was playing golf yesterday, sudden onset n/v, diarrhea, coughing spell, near syncope. Brought to ER, abnormal EKG w/ elevated troponin, cardiac cath planned for this morning. Overnight had more diarrhea and vomiting w/ fever. Feeling better now. Other labs: WBC 18.5, plt 51, INR 1.6, bili 3.9, AST 39, ALT 32, Alk Phos 79. Abd US pending. H/o esophageal varices/bending here by Dr. Holloway in 2013; can't view procedure reports. Had colonoscopy at that time as well. Now follows w/ Dr. Pinto, takes spironolactone and Imuran for what seems like autoimmune hepatitis. Unclear other workup, maybe had a liver biopsy at [facility]. Also takes Tums and Rx med for GERD. No hematemesis, hematochezia, or melena. Asks me to look at sore are under scrotum. 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, sober since 2013) Drugs: None ROS: GEN: +fever HEENT: Denies blurred vision, sore throat CV: Denies chest pain RESP: Denies shortness of air, cough GI: Per HPI : Denies hematuria, dysuria ENDO: Denies weight changes NEURO: +dizziness MSK: Denies weakness, joint pain/swelling SKIN: Denies jaundice, pruritus Vitals: Vitals: Vital Signs Date Time Temp Pulse Resp B/P (MAP) Pulse Ox O2 Delivery O2 Flow Rate FiO2 09/02/16 07:25 98.6 94 18 102/58 (73) 97 Room Air 98.6 Labs: Labs: Laboratory Tests Test 09/01/16 12:55 09/01/16 19:55 09/01/16 21:05 09/02/16 01:50 White Blood Count 18.4 x10^3/uL (4.0-11.0) 18.5 x10^3/uL (4.0-11.0) Red Blood Count 3.61 x10^6/uL (4.30-5.70) 3.58 x10^6/uL (4.30-5.70) Hemoglobin 13.2 g/dL (13.0-17.5) 13.0 g/dL (13.0-17.5) Hematocrit 37.8 % (39.0-53.0) 37.5 % (39.0-53.0) Mean Corpuscular Volume 105 fL (79-100) 105 fL (79-100) Mean Corpuscular Hemoglobin 36 pg (25-35) 36 pg (25-35) Mean Corpuscular Hemoglobin Concent 35 g/dL (31-37) 35 g/dL (31-37) Red Cell Distribution Width 15.7 % (11.5-14.5) 15.4 % (11.5-14.5) Platelet Count 71 x10^3/uL (140-400) 51 x10^3/uL (140-400) Neutrophils (%) (Auto) 89 % (31-73) 87 % (31-73) Lymphocytes (%) (Auto) 3 % (24-48) 4 % (24-48) Monocytes (%) (Auto) 8 % (0-9) 9 % (0-9) Eosinophils (%) (Auto) 0 % (0-3) 0 % (0-3) Basophils (%) (Auto) 0 % (0-3) 0 % (0-3) Neutrophils # (Auto) 16.3 x10^3uL (1.8-7.7) 16.1 x10^3uL (1.8-7.7) Lymphocytes # (Auto) 0.6 x10^3/uL (1.0-4.8) 0.7 x10^3/uL (1.0-4.8) Monocytes # (Auto) 1.4 x10^3/uL (0.0-1.1) 1.7 x10^3/uL (0.0-1.1) Eosinophils # (Auto) 0.0 x10^3/uL (0.0-0.7) 0.0 x10^3/uL (0.0-0.7) Basophils # (Auto) 0.1 x10^3/uL (0.0-0.2) 0.0 x10^3/uL (0.0-0.2) Segmented Neutrophils % 84 % (35-66) Band Neutrophils % 3 % (0-9) Lymphocytes % 4 % (24-48) Monocytes % 7 % (0-10) Eosinophils % 1 % (0-5) Basophils % 1 % (0-3) Platelet Estimate Decreased (ADEQUATE) Giant Platelets Occ Poikilocytosis Slight Anisocytosis Slight Macrocytosis Slight Ovalocytes Few Grace-[place] Bodies Present Schistocytes Few Prothrombin Time 18.0 SEC (11.7-14.0) Prothromb Time International Ratio 1.6 (0.8-1.1) Activated Partial Thromboplast Time 31 SEC (24-38) Sodium Level 134 mmol/L (136-145) 135 mmol/L (136-145) Potassium Level 3.9 mmol/L (3.5-5.1) 4.0 mmol/L (3.5-5.1) Chloride Level 99 mmol/L (98-107) 102 mmol/L (98-107) Carbon Dioxide Level 23 mmol/L (21-32) 23 mmol/L (21-32) Anion Gap 12 (6-14) 10 (6-14) Blood Urea Nitrogen 13 mg/dL (8-26) 13 mg/dL (8-26) Creatinine 1.2 mg/dL (0.7-1.3) 1.2 mg/dL (0.7-1.3) Estimated GFR (Cockcroft-Gault) 60.0 60.0 BUN/Creatinine Ratio 11 (6-20) Glucose Level 144 mg/dL (70-99) 141 mg/dL (70-99) Calcium Level 8.2 mg/dL (8.5-10.1) 7.9 mg/dL (8.5-10.1) Magnesium Level 1.3 mg/dL (1.8-2.4) 1.7 mg/dL (1.8-2.4) Total Bilirubin 3.9 mg/dL (0.2-1.0) 3.9 mg/dL (0.2-1.0) Aspartate Amino Transf (AST/SGOT) 47 U/L (15-37) 39 U/L (15-37) Alanine Aminotransferase (ALT/SGPT) 34 U/L (16-63) 32 U/L (16-63) Alkaline Phosphatase 98 U/L (46-116) 79 U/L (46-116) Creatine Kinase 177 U/L (39-308) Troponin I Quantitative 0.069 ng/mL (0.000-0.055) 0.107 ng/mL (0.000-0.055) 0.112 ng/mL (0.000-0.055) OB-Czx-G-Type Natriuretic Peptide 738 pg/mL (0-124) Total Protein 6.9 g/dL (6.4-8.2) 6.7 g/dL (6.4-8.2) Albumin 3.0 g/dL (3.4-5.0) 2.6 g/dL (3.4-5.0) Albumin/Globulin Ratio 0.8 (1.0-1.7) Lipase 123 U/L (73-393) Ethyl Alcohol Level < 10 mg/dL (0-10) Heparin Anti-Xa Act, Unfractionated 0.60 IU/mL (0.30-0.70) Direct Bilirubin 1.1 mg/dL (0.0-0.2) Triglycerides Level 32 mg/dL (0-150) Cholesterol Level 122 mg/dL (0-200) LDL Cholesterol, Calculated 47 mg/dL (0-100) VLDL Cholesterol, Calculated 6 mg/dL (0-40) Non-HDL Cholesterol Calculated 53 mg/dL (0-129) HDL Cholesterol 69 mg/dL (40-60) Cholesterol/HDL Ratio 1.8 Allergies: Coded Allergies: No Known Drug Allergies (Unverified , 11/08/13) Medications: Current Medications Medications (Trade) Dose Ordered Sig/Torres Route PRN Reason Start Time Stop Time Status Last Admin Dose Admin Albuterol/ Ipratropium (Duoneb) 3 ml 1X ONCE NEB 09/01/16 12:45 09/01/16 12:46 DC 09/01/16 13:42 Aspirin (Ecotrin) 325 mg 1X ONCE PO 09/01/16 12:45 09/01/16 12:46 DC 09/01/16 13:24 Ondansetron HCl (Zofran) 4 mg 1X ONCE IV 09/01/16 12:45 09/01/16 12:46 DC 09/01/16 13:23 Sodium Chloride 1,000 ml @ 1,000 mls/hr 1X ONCE IV 09/01/16 12:45 09/01/16 13:44 DC 09/01/16 13:23 Ondansetron HCl (Zofran) 4 mg PRN Q8HRS PRN IV NAUSEA/VOMITING 09/01/16 13:45 09/02/16 13:44 09/01/16 17:51 Enoxaparin Sodium (Lovenox 80mg Syringe) 70 mg 1X ONCE SQ 09/01/16 14:00 09/01/16 14:01 DC 09/01/16 15:04 Heparin Sodium (Porcine) (Heparin Sodium) 4,000 unit 1X ONCE IV 09/01/16 14:30 09/01/16 15:39 DC 09/01/16 15:06 Heparin Sodium/ Dextrose 500 ml @ 0 mls/hr CONT PRN IV SEE I/O RECORD 09/01/16 14:30 09/01/16 15:39 DC 09/01/16 15:05 Sodium Chloride 1,000 ml @ 75 mls/hr [id number] IV 09/01/16 15:35 09/01/16 16:54 Magnesium Sulfate/ Dextrose 50 ml @ 25 mls/hr 1X ONCE IV 09/01/16 16:00 09/01/16 17:59 DC 09/01/16 16:53 Metoprolol Tartrate (Lopressor) 25 mg BID PO 09/01/16 16:30 09/01/16 16:53 Acetaminophen (Tylenol) 650 mg PRN Q6HRS PRN PO FEVER 09/01/16 16:45 09/02/16 03:24 Phytonadione 10 mg/Sodium Chloride 51 ml @ 102 mls/hr 1X ONCE IV 09/01/16 18:30 09/01/16 18:59 DC 09/01/16 20:23 Imaging: Imaging: CXR 09/01/16 IMPRESSION: 1. Mild cardiomegaly. Ltd Abd US PENDING PE: GEN: NAD HEENT: Atraumatic, PERRL LUNGS: CTAB anteriorly HEART: RRR ABD: NABS, S/ND/NT EXTREMITY: No edema SKIN: perineum - right, area of erythema and induration, tender NEURO/PSYCH: A & O 3 A/P: A/P: Near syncope, abnormal EKG, elevated troponin -per cardiology, cath planned H/o esophageal varices/banding - 2013 Autoimmune hepatitis, elevated bilirubin, thrombocytopenia, coagulopathy -follows w/ Dr. Pinto, on spironolactone, Imuran GERD -controlled w/ Tums and another Rx med CRC screen -2013 w/ Dr. Holloway ?cellulitis/abscess -per primary -- Agree w/ cath plans. Continue Imuran, monitor symptoms, consider EGD later. RUTH CALDERÓN Sep 02, 2016 09:27
[2016-09-02 09:31] LABS: FOLATE 11.85 ng/ml (3.2-20.0)
--- NOTE | 2016-09-02 09:39 | EKG ---
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
--- NOTE | 2016-09-02 10:43 | PDOC ---
PROGRESS NOTES Chief Complaint Chief Complaint cc: diarrhea, dizziness A/P Elevated troponin, : on AC, Cardiac cancerization today SIRS due to perineal abscess with fevers: on Zosyn, Consult surgery for ID. CT abdomen for recurrent fevers, blood cx ordered, IV hydration with Normal saline Leucocytosis: monitor WBC in am Pain due to above: IV Morphine PRN Diarrhea, /dizziness: improved. Autoimmune hepatitis, elevated bilirubin, thrombocytopenia, coagulopathy Vitals Vitals Vital Signs Date Time Temp Pulse Resp B/P (MAP) Pulse Ox O2 Delivery O2 Flow Rate FiO2 09/02/16 08:10 Room Air 09/02/16 07:25 98.6 94 18 102/58 (73) 97 98.6 Physical Exam General: Alert, Oriented X3, Cooperative, No acute distress Heart: Regular rate, Normal S1, Normal S2 Lungs: Clear Abdomen: Normal bowel sounds, Soft, Other (perineal abscess. ) Extremities: No edema, Normal pulses Skin: No significant lesion Labs LABS Laboratory Tests Test 09/01/16 12:55 09/01/16 19:55 09/01/16 21:05 09/02/16 01:50 White Blood Count 18.4 x10^3/uL (4.0-11.0) 18.5 x10^3/uL (4.0-11.0) Red Blood Count 3.61 x10^6/uL (4.30-5.70) 3.58 x10^6/uL (4.30-5.70) Hemoglobin 13.2 g/dL (13.0-17.5) 13.0 g/dL (13.0-17.5) Hematocrit 37.8 % (39.0-53.0) 37.5 % (39.0-53.0) Mean Corpuscular Volume 105 fL (79-100) 105 fL (79-100) Mean Corpuscular Hemoglobin 36 pg (25-35) 36 pg (25-35) Mean Corpuscular Hemoglobin Concent 35 g/dL (31-37) 35 g/dL (31-37) Red Cell Distribution Width 15.7 % (11.5-14.5) 15.4 % (11.5-14.5) Platelet Count 71 x10^3/uL (140-400) 51 x10^3/uL (140-400) Neutrophils (%) (Auto) 89 % (31-73) 87 % (31-73) Lymphocytes (%) (Auto) 3 % (24-48) 4 % (24-48) Monocytes (%) (Auto) 8 % (0-9) 9 % (0-9) Eosinophils (%) (Auto) 0 % (0-3) 0 % (0-3) Basophils (%) (Auto) 0 % (0-3) 0 % (0-3) Neutrophils # (Auto) 16.3 x10^3uL (1.8-7.7) 16.1 x10^3uL (1.8-7.7) Lymphocytes # (Auto) 0.6 x10^3/uL (1.0-4.8) 0.7 x10^3/uL (1.0-4.8) Monocytes # (Auto) 1.4 x10^3/uL (0.0-1.1) 1.7 x10^3/uL (0.0-1.1) Eosinophils # (Auto) 0.0 x10^3/uL (0.0-0.7) 0.0 x10^3/uL (0.0-0.7) Basophils # (Auto) 0.1 x10^3/uL (0.0-0.2) 0.0 x10^3/uL (0.0-0.2) Segmented Neutrophils % 84 % (35-66) Band Neutrophils % 3 % (0-9) Lymphocytes % 4 % (24-48) Monocytes % 7 % (0-10) Eosinophils % 1 % (0-5) Basophils % 1 % (0-3) Platelet Estimate Decreased (ADEQUATE) Giant Platelets Occ Poikilocytosis Slight Anisocytosis Slight Macrocytosis Slight Ovalocytes Few [place] Bodies Present Schistocytes Few Prothrombin Time 18.0 SEC (11.7-14.0) Prothromb Time International Ratio 1.6 (0.8-1.1) Activated Partial Thromboplast Time 31 SEC (24-38) Sodium Level 134 mmol/L (136-145) 135 mmol/L (136-145) Potassium Level 3.9 mmol/L (3.5-5.1) 4.0 mmol/L (3.5-5.1) Chloride Level 99 mmol/L (98-107) 102 mmol/L (98-107) Carbon Dioxide Level 23 mmol/L (21-32) 23 mmol/L (21-32) Anion Gap 12 (6-14) 10 (6-14) Blood Urea Nitrogen 13 mg/dL (8-26) 13 mg/dL (8-26) Creatinine 1.2 mg/dL (0.7-1.3) 1.2 mg/dL (0.7-1.3) Estimated GFR (Cockcroft-Gault) 60.0 60.0 BUN/Creatinine Ratio 11 (6-20) Glucose Level 144 mg/dL (70-99) 141 mg/dL (70-99) Calcium Level 8.2 mg/dL (8.5-10.1) 7.9 mg/dL (8.5-10.1) Magnesium Level 1.3 mg/dL (1.8-2.4) 1.7 mg/dL (1.8-2.4) Total Bilirubin 3.9 mg/dL (0.2-1.0) 3.9 mg/dL (0.2-1.0) Aspartate Amino Transf (AST/SGOT) 47 U/L (15-37) 39 U/L (15-37) Alanine Aminotransferase (ALT/SGPT) 34 U/L (16-63) 32 U/L (16-63) Alkaline Phosphatase 98 U/L (46-116) 79 U/L (46-116) Creatine Kinase 177 U/L (39-308) Troponin I Quantitative 0.069 ng/mL (0.000-0.055) 0.107 ng/mL (0.000-0.055) 0.112 ng/mL (0.000-0.055) DP-Ykb-G-Type Natriuretic Peptide 738 pg/mL (0-124) Total Protein 6.9 g/dL (6.4-8.2) 6.7 g/dL (6.4-8.2) Albumin 3.0 g/dL (3.4-5.0) 2.6 g/dL (3.4-5.0) Albumin/Globulin Ratio 0.8 (1.0-1.7) Lipase 123 U/L (73-393) Ethyl Alcohol Level < 10 mg/dL (0-10) Heparin Anti-Xa Act, Unfractionated 0.60 IU/mL (0.30-0.70) Direct Bilirubin 1.1 mg/dL (0.0-0.2) Triglycerides Level 32 mg/dL (0-150) Cholesterol Level 122 mg/dL (0-200) LDL Cholesterol, Calculated 47 mg/dL (0-100) VLDL Cholesterol, Calculated 6 mg/dL (0-40) Non-HDL Cholesterol Calculated 53 mg/dL (0-129) HDL Cholesterol 69 mg/dL (40-60) Cholesterol/HDL Ratio 1.8 Vitamin B12 Level 1273 pg/mL (247-911) Serum Folate 11.85 ng/ml (3.2-20.0) Assessment and Plan Assessmemt and Plan Problems Medical Problems: (1) Nausea & vomiting Status: Acute (2) Near syncope Status: Acute (3) NSTEMI (non-ST elevated myocardial infarction) Status: Acute Problems: Comment Review of Relevant I have reviewed the following items pina (where applicable) has been applied. Labs Laboratory Tests Test 09/01/16 12:55 09/01/16 19:55 09/01/16 21:05 09/02/16 01:50 White Blood Count 18.4 x10^3/uL (4.0-11.0) 18.5 x10^3/uL (4.0-11.0) Red Blood Count 3.61 x10^6/uL (4.30-5.70) 3.58 x10^6/uL (4.30-5.70) Hemoglobin 13.2 g/dL (13.0-17.5) 13.0 g/dL (13.0-17.5) Hematocrit 37.8 % (39.0-53.0) 37.5 % (39.0-53.0) Mean Corpuscular Volume 105 fL (79-100) 105 fL (79-100) Mean Corpuscular Hemoglobin 36 pg (25-35) 36 pg (25-35) Mean Corpuscular Hemoglobin Concent 35 g/dL (31-37) 35 g/dL (31-37) Red Cell Distribution Width 15.7 % (11.5-14.5) 15.4 % (11.5-14.5) Platelet Count 71 x10^3/uL (140-400) 51 x10^3/uL (140-400) Neutrophils (%) (Auto) 89 % (31-73) 87 % (31-73) Lymphocytes (%) (Auto) 3 % (24-48) 4 % (24-48) Monocytes (%) (Auto) 8 % (0-9) 9 % (0-9) Eosinophils (%) (Auto) 0 % (0-3) 0 % (0-3) Basophils (%) (Auto) 0 % (0-3) 0 % (0-3) Neutrophils # (Auto) 16.3 x10^3uL (1.8-7.7) 16.1 x10^3uL (1.8-7.7) Lymphocytes # (Auto) 0.6 x10^3/uL (1.0-4.8) 0.7 x10^3/uL (1.0-4.8) Monocytes # (Auto) 1.4 x10^3/uL (0.0-1.1) 1.7 x10^3/uL (0.0-1.1) Eosinophils # (Auto) 0.0 x10^3/uL (0.0-0.7) 0.0 x10^3/uL (0.0-0.7) Basophils # (Auto) 0.1 x10^3/uL (0.0-0.2) 0.0 x10^3/uL (0.0-0.2) Segmented Neutrophils % 84 % (35-66) Band Neutrophils % 3 % (0-9) Lymphocytes % 4 % (24-48) Monocytes % 7 % (0-10) Eosinophils % 1 % (0-5) Basophils % 1 % (0-3) Platelet Estimate Decreased (ADEQUATE) Giant Platelets Occ Poikilocytosis Slight Anisocytosis Slight Macrocytosis Slight Ovalocytes Few [place] Bodies Present Schistocytes Few Prothrombin Time 18.0 SEC (11.7-14.0) Prothromb Time International Ratio 1.6 (0.8-1.1) Activated Partial Thromboplast Time 31 SEC (24-38) Sodium Level 134 mmol/L (136-145) 135 mmol/L (136-145) Potassium Level 3.9 mmol/L (3.5-5.1) 4.0 mmol/L (3.5-5.1) Chloride Level 99 mmol/L (98-107) 102 mmol/L (98-107) Carbon Dioxide Level 23 mmol/L (21-32) 23 mmol/L (21-32) Anion Gap 12 (6-14) 10 (6-14) Blood Urea Nitrogen 13 mg/dL (8-26) 13 mg/dL (8-26) Creatinine 1.2 mg/dL (0.7-1.3) 1.2 mg/dL (0.7-1.3) Estimated GFR (Cockcroft-Gault) 60.0 60.0 BUN/Creatinine Ratio 11 (6-20) Glucose Level 144 mg/dL (70-99) 141 mg/dL (70-99) Calcium Level 8.2 mg/dL (8.5-10.1) 7.9 mg/dL (8.5-10.1) Magnesium Level 1.3 mg/dL (1.8-2.4) 1.7 mg/dL (1.8-2.4) Total Bilirubin 3.9 mg/dL (0.2-1.0) 3.9 mg/dL (0.2-1.0) Aspartate Amino Transf (AST/SGOT) 47 U/L (15-37) 39 U/L (15-37) Alanine Aminotransferase (ALT/SGPT) 34 U/L (16-63) 32 U/L (16-63) Alkaline Phosphatase 98 U/L (46-116) 79 U/L (46-116) Creatine Kinase 177 U/L (39-308) Troponin I Quantitative 0.069 ng/mL (0.000-0.055) 0.107 ng/mL (0.000-0.055) 0.112 ng/mL (0.000-0.055) ZI-Ick-E-Type Natriuretic Peptide 738 pg/mL (0-124) Total Protein 6.9 g/dL (6.4-8.2) 6.7 g/dL (6.4-8.2) Albumin 3.0 g/dL (3.4-5.0) 2.6 g/dL (3.4-5.0) Albumin/Globulin Ratio 0.8 (1.0-1.7) Lipase 123 U/L (73-393) Ethyl Alcohol Level < 10 mg/dL (0-10) Heparin Anti-Xa Act, Unfractionated 0.60 IU/mL (0.30-0.70) Direct Bilirubin 1.1 mg/dL (0.0-0.2) Triglycerides Level 32 mg/dL (0-150) Cholesterol Level 122 mg/dL (0-200) LDL Cholesterol, Calculated 47 mg/dL (0-100) VLDL Cholesterol, Calculated 6 mg/dL (0-40) Non-HDL Cholesterol Calculated 53 mg/dL (0-129) HDL Cholesterol 69 mg/dL (40-60) Cholesterol/HDL Ratio 1.8 Vitamin B12 Level 1273 pg/mL (247-911) Serum Folate 11.85 ng/ml (3.2-20.0) Laboratory Tests Test 09/01/16 12:55 09/01/16 19:55 09/01/16 21:05 09/02/16 01:50 White Blood Count 18.4 x10^3/uL (4.0-11.0) 18.5 x10^3/uL (4.0-11.0) Red Blood Count 3.61 x10^6/uL (4.30-5.70) 3.58 x10^6/uL (4.30-5.70) Hemoglobin 13.2 g/dL (13.0-17.5) 13.0 g/dL (13.0-17.5) Hematocrit 37.8 % (39.0-53.0) 37.5 % (39.0-53.0) Mean Corpuscular Volume 105 fL (79-100) 105 fL (79-100) Mean Corpuscular Hemoglobin 36 pg (25-35) 36 pg (25-35) Mean Corpuscular Hemoglobin Concent 35 g/dL (31-37) 35 g/dL (31-37) Red Cell Distribution Width 15.7 % (11.5-14.5) 15.4 % (11.5-14.5) Platelet Count 71 x10^3/uL (140-400) 51 x10^3/uL (140-400) Neutrophils (%) (Auto) 89 % (31-73) 87 % (31-73) Lymphocytes (%) (Auto) 3 % (24-48) 4 % (24-48) Monocytes (%) (Auto) 8 % (0-9) 9 % (0-9) Eosinophils (%) (Auto) 0 % (0-3) 0 % (0-3) Basophils (%) (Auto) 0 % (0-3) 0 % (0-3) Neutrophils # (Auto) 16.3 x10^3uL (1.8-7.7) 16.1 x10^3uL (1.8-7.7) Lymphocytes # (Auto) 0.6 x10^3/uL (1.0-4.8) 0.7 x10^3/uL (1.0-4.8) Monocytes # (Auto) 1.4 x10^3/uL (0.0-1.1) 1.7 x10^3/uL (0.0-1.1) Eosinophils # (Auto) 0.0 x10^3/uL (0.0-0.7) 0.0 x10^3/uL (0.0-0.7) Basophils # (Auto) 0.1 x10^3/uL (0.0-0.2) 0.0 x10^3/uL (0.0-0.2) Segmented Neutrophils % 84 % (35-66) Band Neutrophils % 3 % (0-9) Lymphocytes % 4 % (24-48) Monocytes % 7 % (0-10) Eosinophils % 1 % (0-5) Basophils % 1 % (0-3) Platelet Estimate Decreased (ADEQUATE) Giant Platelets Occ Poikilocytosis Slight Anisocytosis Slight Macrocytosis Slight Ovalocytes Few [place] Bodies Present Schistocytes Few Prothrombin Time 18.0 SEC (11.7-14.0) Prothromb Time International Ratio 1.6 (0.8-1.1) Activated Partial Thromboplast Time 31 SEC (24-38) Sodium Level 134 mmol/L (136-145) 135 mmol/L (136-145) Potassium Level 3.9 mmol/L (3.5-5.1) 4.0 mmol/L (3.5-5.1) Chloride Level 99 mmol/L (98-107) 102 mmol/L (98-107) Carbon Dioxide Level 23 mmol/L (21-32) 23 mmol/L (21-32) Anion Gap 12 (6-14) 10 (6-14) Blood Urea Nitrogen 13 mg/dL (8-26) 13 mg/dL (8-26) Creatinine 1.2 mg/dL (0.7-1.3) 1.2 mg/dL (0.7-1.3) Estimated GFR (Cockcroft-Gault) 60.0 60.0 BUN/Creatinine Ratio 11 (6-20) Glucose Level 144 mg/dL (70-99) 141 mg/dL (70-99) Calcium Level 8.2 mg/dL (8.5-10.1) 7.9 mg/dL (8.5-10.1) Magnesium Level 1.3 mg/dL (1.8-2.4) 1.7 mg/dL (1.8-2.4) Total Bilirubin 3.9 mg/dL (0.2-1.0) 3.9 mg/dL (0.2-1.0) Aspartate Amino Transf (AST/SGOT) 47 U/L (15-37) 39 U/L (15-37) Alanine Aminotransferase (ALT/SGPT) 34 U/L (16-63) 32 U/L (16-63) Alkaline Phosphatase 98 U/L (46-116) 79 U/L (46-116) Creatine Kinase 177 U/L (39-308) Troponin I Quantitative 0.069 ng/mL (0.000-0.055) 0.107 ng/mL (0.000-0.055) 0.112 ng/mL (0.000-0.055) FQ-Gkw-N-Type Natriuretic Peptide 738 pg/mL (0-124) Total Protein 6.9 g/dL (6.4-8.2) 6.7 g/dL (6.4-8.2) Albumin 3.0 g/dL (3.4-5.0) 2.6 g/dL (3.4-5.0) Albumin/Globulin Ratio 0.8 (1.0-1.7) Lipase 123 U/L (73-393) Ethyl Alcohol Level < 10 mg/dL (0-10) Heparin Anti-Xa Act, Unfractionated 0.60 IU/mL (0.30-0.70) Direct Bilirubin 1.1 mg/dL (0.0-0.2) Triglycerides Level 32 mg/dL (0-150) Cholesterol Level 122 mg/dL (0-200) LDL Cholesterol, Calculated 47 mg/dL (0-100) VLDL Cholesterol, Calculated 6 mg/dL (0-40) Non-HDL Cholesterol Calculated 53 mg/dL (0-129) HDL Cholesterol 69 mg/dL (40-60) Cholesterol/HDL Ratio 1.8 Vitamin B12 Level 1273 pg/mL (247-911) Serum Folate 11.85 ng/ml (3.2-20.0) Medications Current Medications Albuterol/ Ipratropium (Duoneb) 3 ml 1X ONCE NEB Last administered on 13:42; Start 09/01/16 at 12:45; Stop 09/01/16 at 12:46; Status DC Aspirin (Ecotrin) 325 mg 1X ONCE PO Last administered on 09/01/16 13:24; Start 09/01/16 at 12:45; Stop 09/01/16 at 12:46; Status DC Ondansetron HCl (Zofran) 4 mg 1X ONCE IV Last administered on 09/01/16 13:23 ; Start 09/01/16 at 12:45; Stop 09/01/16 at 12:46; Status DC Sodium Chloride 1,000 ml @ 1,000 mls/hr 1X ONCE IV Last administered on 13:23; Start 09/01/16 at 12:45; Stop 09/01/16 at 13:44; Status DC Ondansetron HCl (Zofran) 4 mg PRN Q8HRS PRN IV NAUSEA/VOMITING Last administered on 09/01/16 17:51; Start 09/01/16 at 13:45; Stop 09/02/16 at 13:44 Fentanyl Citrate (Fentanyl 2ml Vial) 50 mcg PRN Q2HR PRN IV PAIN; Start at 13:45; Stop 09/02/16 at 13:44 Enoxaparin Sodium (Lovenox 80mg Syringe) 70 mg 1X ONCE SQ Last administered on 09/01/16 15:04; Start 09/01/16 at 14:00; Stop 09/01/16 at 14:01; Status DC Heparin Sodium (Porcine) (Heparin Sodium) 4,000 unit 1X ONCE IV Last administered on 09/01/16 15:06; Start 09/01/16 at 14:30; Stop 09/01/16 at 15:39 ; Status DC Heparin Sodium/ Dextrose 500 ml @ 0 mls/hr CONT PRN IV SEE I/O RECORD Last administered on 09/01/16 15:05; Start 09/01/16 at 14:30; Stop 09/01/16 at 15:39 ; Status DC Heparin Sodium (Porcine) (Heparin Sodium) 1,900 unit PRN Q6HRS PRN IV FOR UFH LEVEL LESS THAN 0.2; Start 09/01/16 at 14:30; Stop 09/01/16 at 15:39; Status DC Sodium Chloride 1,000 ml @ 75 mls/hr [id number] IV Last administered on 16:54; Start 09/01/16 at 15:35 Magnesium Sulfate/ Dextrose 50 ml @ 25 mls/hr 1X ONCE IV Last administered on 09/01/16 16:53; Start 09/01/16 at 16:00; Stop 09/01/16 at 17:59; Status DC Hydralazine HCl (Apresoline) 10 mg PRN Q4HRS PRN IVP ELEVATED BP, SEE COMMENTS ; Start 09/01/16 at 16:30 Metoprolol Tartrate (Lopressor) 25 mg BID PO Last administered on 09/01/16 16: 53; Start 09/01/16 at 16:30 Acetaminophen (Tylenol) 650 mg PRN Q6HRS PRN PO FEVER Last administered on 09/02 03:24; Start 09/01/16 at 16:45 Phytonadione 10 mg/Sodium Chloride 51 ml @ 102 mls/hr 1X ONCE IV Last administered on 09/01/16 20:23; Start 09/01/16 at 18:30; Stop 09/01/16 at 18:59 ; Status DC Piperacillin Sod/ Tazobactam Sod 3.375 gm/Sodium Chloride 50 ml @ 100 mls/hr Q6HRS IV ; Start 09/02/16 at 12:00; Status UNV Active Scripts Active Multivitamins (Multivitamin) 1 Each Tablet 1 Tab PO DAILY [Propranolol Hcl] 10 MG Tablet 10 Mg PO BID Protonix (Pantoprazole Sodium) 40 Mg Tablet 40 Mg PO DAILYAC Reported Spironolactone 25 Mg Tablet 1 Tab PO DAILY Azathioprine 50 Mg Tablet 3 Tab PO DAILY Levothyroxine Sodium 75 Mcg Tablet 1 Tab PO DAILY Vitals/I & O Vital Sign - Last 24 Hours 09/01/16 09/01/16 09/01/16 09/01/16 12:28 13:10 13:45 14:10 Temp 99.4 99.4 Pulse 91 86 90 Resp 18 18 B/P (MAP) 161/81 (107) 145/75 (98) 149/79 (102) Pulse Ox 99 97 96 96 O2 Delivery Room Air Room Air Room Air Room Air 09/01/16 09/01/16 09/01/16 09/01/16 15:10 16:31 16:53 17:16 Temp 100.8 100.8 Pulse 91 96 90 Resp B/P (MAP) 158/81 (106) 184/84 (117) 174/81 Pulse Ox 96 95 O2 Delivery Room Air Room Air Room Air 09/01/16 09/01/16 09/01/16 09/01/16 18:05 19:50 20:00 22:55 Temp 100.8 100.1 100.5 100.8 100.1 100.5 Pulse 90 73 89 Resp B/P (MAP) 174/81 (112) 114/51 (72) 124/76 (92) Pulse Ox 95 98 99 O2 Delivery Room Air Room Air Room Air 09/02/16 09/02/16 09/02/16 03:20 07:25 08:10 Temp 103.0 98.6 103.0 98.6 Pulse 94 94 Resp B/P (MAP) 132/71 (91) 102/58 (73) Pulse Ox 96 97 O2 Delivery Room Air Room Air Room Air Intake and Output 09/01/16 09/01/16 09/02/16 15:00 23:00 07:00 Intake Total 460 ml 1696 ml Output Total 325 ml Balance 135 ml 1696 ml BOB HAUSER MD Sep 02, 2016 10:43
[2016-09-02] MEDS: METOPROLOL TART IMMED RELEASE 25 MG TABLET. PO SCH ×2 (10:51→21:03)
[2016-09-02] MEDS ORDERED: LIDOCAINE 2% 20 ML VIAL. ONE (11:26)
[2016-09-02] MEDS ORDERED: IOHEXOL 300 MG/ML 100ML VIAL. ONE (11:27)
[2016-09-02] MEDS: PIPERACILLIN/TAZOBACTAM 3.375 GM in IV NORMAL SALINE 50ML 50 ML IV SCH ×3 (11:30→23:39)
--- NOTE | 2016-09-02 11:57 | PDOC2 ---
[facility] [employer] 09/02/16 1157: CONSULT Date of Consult Date of Consult DATE: 09/02/16 TIME: 11:30 Reason for Consult Reason for Consult: perineal abscess Referring Physician Referring Physician: MILA Identification/Chief Complaint Chief Complaint syncope Source Source: Chart review, Patient History of Present Illness Reason for Visit: Admitted with syncope and vomiting. Cardiac enzymes were elevated and cardiology plans to check a cardiac cath today. Noted to have elevated bilirubin on admission, GI consulted, hx of hepatitis, alcoholism(quit 2013), US showed signs of cirrhosis General surgery consult for perineal abscess, reports developed thursday. pain radiates up the groin, mild edema scrotum, fever today 103 Past Medical History Cardiovascular: HTN Pulmonary: No pertinent hx GI: Other (esophageal varices) Heme/Onc: No pertinent hx Hepatobiliary: Cirrhosis, Hep A/B/C Psych: No pertinent hx Rheumatologic: No pertinent hx Infectious disease: No pertinent hx ENT: No pertinent hx Renal/: No pertinent hx Endocrine: Hypothyroidism Dermatology: No pertinent hx Past Surgical History Past Surgical History: No pertinent history Family History Family History: Hypertension Social History No ALCOHOL: other (heavy alcohol use in the past, sober since 2013) Drugs: None Current Problem List Problem List Problems Medical Problems: (1) Nausea & vomiting Status: Acute (2) Near syncope Status: Acute (3) NSTEMI (non-ST elevated myocardial infarction) Status: Acute Current Medications Current Medications Current Medications Albuterol/ Ipratropium (Duoneb) 3 ml 1X ONCE NEB Last administered on 13:42; Start 09/01/16 at 12:45; Stop 09/01/16 at 12:46; Status DC Aspirin (Ecotrin) 325 mg 1X ONCE PO Last administered on 09/01/16 13:24; Start 09/01/16 at 12:45; Stop 09/01/16 at 12:46; Status DC Ondansetron HCl (Zofran) 4 mg 1X ONCE IV Last administered on 09/01/16 13:23 ; Start 09/01/16 at 12:45; Stop 09/01/16 at 12:46; Status DC Sodium Chloride 1,000 ml @ 1,000 mls/hr 1X ONCE IV Last administered on 13:23; Start 09/01/16 at 12:45; Stop 09/01/16 at 13:44; Status DC Ondansetron HCl (Zofran) 4 mg PRN Q8HRS PRN IV NAUSEA/VOMITING Last administered on 09/01/16 17:51; Start 09/01/16 at 13:45; Stop 09/02/16 at 13:44 Fentanyl Citrate (Fentanyl 2ml Vial) 50 mcg PRN Q2HR PRN IV PAIN; Start at 13:45; Stop 09/02/16 at 13:44 Enoxaparin Sodium (Lovenox 80mg Syringe) 70 mg 1X ONCE SQ Last administered on 09/01/16 15:04; Start 09/01/16 at 14:00; Stop 09/01/16 at 14:01; Status DC Heparin Sodium (Porcine) (Heparin Sodium) 4,000 unit 1X ONCE IV Last administered on 09/01/16 15:06; Start 09/01/16 at 14:30; Stop 09/01/16 at 15:39 ; Status DC Heparin Sodium/ Dextrose 500 ml @ 0 mls/hr CONT PRN IV SEE I/O RECORD Last administered on 09/01/16 15:05; Start 09/01/16 at 14:30; Stop 09/01/16 at 15:39 ; Status DC Heparin Sodium (Porcine) (Heparin Sodium) 1,900 unit PRN Q6HRS PRN IV FOR UFH LEVEL LESS THAN 0.2; Start 09/01/16 at 14:30; Stop 09/01/16 at 15:39; Status DC Sodium Chloride 1,000 ml @ 75 mls/hr [id number] IV Last administered on 16:54; Start 09/01/16 at 15:35 Magnesium Sulfate/ Dextrose 50 ml @ 25 mls/hr 1X ONCE IV Last administered on 09/01/16 16:53; Start 09/01/16 at 16:00; Stop 09/01/16 at 17:59; Status DC Hydralazine HCl (Apresoline) 10 mg PRN Q4HRS PRN IVP ELEVATED BP, SEE COMMENTS ; Start 09/01/16 at 16:30 Metoprolol Tartrate (Lopressor) 25 mg BID PO Last administered on 09/02/16 10: 51; Start 09/01/16 at 16:30 Acetaminophen (Tylenol) 650 mg PRN Q6HRS PRN PO FEVER Last administered on 09/02 03:24; Start 09/01/16 at 16:45 Phytonadione 10 mg/Sodium Chloride 51 ml @ 102 mls/hr 1X ONCE IV Last administered on 09/01/16 20:23; Start 09/01/16 at 18:30; Stop 09/01/16 at 18:59 ; Status DC Piperacillin Sod/ Tazobactam Sod 3.375 gm/Sodium Chloride 50 ml @ 100 mls/hr Q6HRS IV ; Start 09/02/16 at 12:00 Sodium Chloride 1,000 ml @ 125 mls/hr Q8H IV Last administered on 09/02/16 10 :51; Start 09/02/16 at 10:45 Lidocaine HCl 20 ml STK-MED ONCE .ROUTE ; Start 09/02/16 at 11:26; Stop at 11:27; Status DC Heparin Sodium/ Sodium Chloride 1,000 ml @ As Directed STK-MED ONCE .ROUTE ; Start 09/02/16 at 11:26; Stop 09/02/16 at 11:27; Status DC Iohexol (Omnipaque 300 Mg/ml) 100 ml STK-MED ONCE .ROUTE ; Start 09/02/16 at 11: 27; Stop 09/02/16 at 11:28; Status DC Active Scripts Active Multivitamins (Multivitamin) 1 Each Tablet 1 Tab PO DAILY [Propranolol Hcl] 10 MG Tablet 10 Mg PO BID Protonix (Pantoprazole Sodium) 40 Mg Tablet 40 Mg PO DAILYAC Reported Spironolactone 25 Mg Tablet 1 Tab PO DAILY Azathioprine 50 Mg Tablet 3 Tab PO DAILY Levothyroxine Sodium 75 Mcg Tablet 1 Tab PO DAILY Allergies Allergies: Coded Allergies: No Known Drug Allergies (Unverified , 11/08/13) ROS General: YES: Chills, Other (+ fevers ) PSYCHOLOGICAL ROS: No: Anxiety, Depression Eyes: No Blurry vision, No Double vision HEENT: No: Heacaches, Sore Throat Hematological and Lymphatic: No: Bleeding Problems, Blood Clots Respiratory: No: Cough, Shortness of breath Cardiovascular: No Chest Pain, No Palpitations Gastrointestinal: Yes Nausea, Yes Vomiting Genitourinary: No Dysuria, No Hematuria Musculoskeletal: No Joint Pain, No Muscle Pain Neurological: No Impaired Coord/balance Skin: Yes Other (see hpi) Physical Exam General: Alert, Oriented X3, Cooperative, No acute distress HEENT: PERRLA, Mucous membr. moist/pink Lungs: Clear to auscultation, Normal air movement Heart: Regular rate, Normal S1, Normal S2, No murmurs Abdomen: Soft, No tenderness Extremities: No clubbing, No cyanosis Skin: Other (right perineal extending to groin with erythema, induration, central fluctuance, very small opening with bloody/purulent drainage, midl tenderness to scrotume, no induration noted to scrotum, small pustule in right groin seperate from abscess area) Neuro: Normal speech, Sensation intact Psych/Mental Status: Mental status NL, Mood NL MUSCULOSKELETAL: No deformity, No swelling Vitals VITALS Vital Signs Date Time Temp Pulse Resp B/P (MAP) Pulse Ox O2 Delivery O2 Flow Rate FiO2 09/02/16 11:00 98.7 81 18 126/56 (79) 94 Room Air 98.7 Labs Labs Laboratory Tests Test 09/01/16 12:55 09/01/16 19:55 09/01/16 21:05 09/02/16 01:50 White Blood Count 18.4 x10^3/uL (4.0-11.0) 18.5 x10^3/uL (4.0-11.0) Red Blood Count 3.61 x10^6/uL (4.30-5.70) 3.58 x10^6/uL (4.30-5.70) Hemoglobin 13.2 g/dL (13.0-17.5) 13.0 g/dL (13.0-17.5) Hematocrit 37.8 % (39.0-53.0) 37.5 % (39.0-53.0) Mean Corpuscular Volume 105 fL (79-100) 105 fL (79-100) Mean Corpuscular Hemoglobin 36 pg (25-35) 36 pg (25-35) Mean Corpuscular Hemoglobin Concent 35 g/dL (31-37) 35 g/dL (31-37) Red Cell Distribution Width 15.7 % (11.5-14.5) 15.4 % (11.5-14.5) Platelet Count 71 x10^3/uL (140-400) 51 x10^3/uL (140-400) Neutrophils (%) (Auto) 89 % (31-73) 87 % (31-73) Lymphocytes (%) (Auto) 3 % (24-48) 4 % (24-48) Monocytes (%) (Auto) 8 % (0-9) 9 % (0-9) Eosinophils (%) (Auto) 0 % (0-3) 0 % (0-3) Basophils (%) (Auto) 0 % (0-3) 0 % (0-3) Neutrophils # (Auto) 16.3 x10^3uL (1.8-7.7) 16.1 x10^3uL (1.8-7.7) Lymphocytes # (Auto) 0.6 x10^3/uL (1.0-4.8) 0.7 x10^3/uL (1.0-4.8) Monocytes # (Auto) 1.4 x10^3/uL (0.0-1.1) 1.7 x10^3/uL (0.0-1.1) Eosinophils # (Auto) 0.0 x10^3/uL (0.0-0.7) 0.0 x10^3/uL (0.0-0.7) Basophils # (Auto) 0.1 x10^3/uL (0.0-0.2) 0.0 x10^3/uL (0.0-0.2) Segmented Neutrophils % 84 % (35-66) Band Neutrophils % 3 % (0-9) Lymphocytes % 4 % (24-48) Monocytes % 7 % (0-10) Eosinophils % 1 % (0-5) Basophils % 1 % (0-3) Platelet Estimate Decreased (ADEQUATE) Giant Platelets Occ Poikilocytosis Slight Anisocytosis Slight Macrocytosis Slight Ovalocytes Few [place] Bodies Present Schistocytes Few Prothrombin Time 18.0 SEC (11.7-14.0) Prothromb Time International Ratio 1.6 (0.8-1.1) Activated Partial Thromboplast Time 31 SEC (24-38) Sodium Level 134 mmol/L (136-145) 135 mmol/L (136-145) Potassium Level 3.9 mmol/L (3.5-5.1) 4.0 mmol/L (3.5-5.1) Chloride Level 99 mmol/L (98-107) 102 mmol/L (98-107) Carbon Dioxide Level 23 mmol/L (21-32) 23 mmol/L (21-32) Anion Gap 12 (6-14) 10 (6-14) Blood Urea Nitrogen 13 mg/dL (8-26) 13 mg/dL (8-26) Creatinine 1.2 mg/dL (0.7-1.3) 1.2 mg/dL (0.7-1.3) Estimated GFR (Cockcroft-Gault) 60.0 60.0 BUN/Creatinine Ratio 11 (6-20) Glucose Level 144 mg/dL (70-99) 141 mg/dL (70-99) Calcium Level 8.2 mg/dL (8.5-10.1) 7.9 mg/dL (8.5-10.1) Magnesium Level 1.3 mg/dL (1.8-2.4) 1.7 mg/dL (1.8-2.4) Total Bilirubin 3.9 mg/dL (0.2-1.0) 3.9 mg/dL (0.2-1.0) Aspartate Amino Transf (AST/SGOT) 47 U/L (15-37) 39 U/L (15-37) Alanine Aminotransferase (ALT/SGPT) 34 U/L (16-63) 32 U/L (16-63) Alkaline Phosphatase 98 U/L (46-116) 79 U/L (46-116) Creatine Kinase 177 U/L (39-308) Troponin I Quantitative 0.069 ng/mL (0.000-0.055) 0.107 ng/mL (0.000-0.055) 0.112 ng/mL (0.000-0.055) HT-Wxx-L-Type Natriuretic Peptide 738 pg/mL (0-124) Total Protein 6.9 g/dL (6.4-8.2) 6.7 g/dL (6.4-8.2) Albumin 3.0 g/dL (3.4-5.0) 2.6 g/dL (3.4-5.0) Albumin/Globulin Ratio 0.8 (1.0-1.7) Lipase 123 U/L (73-393) Ethyl Alcohol Level < 10 mg/dL (0-10) Heparin Anti-Xa Act, Unfractionated 0.60 IU/mL (0.30-0.70) Direct Bilirubin 1.1 mg/dL (0.0-0.2) Triglycerides Level 32 mg/dL (0-150) Cholesterol Level 122 mg/dL (0-200) LDL Cholesterol, Calculated 47 mg/dL (0-100) VLDL Cholesterol, Calculated 6 mg/dL (0-40) Non-HDL Cholesterol Calculated 53 mg/dL (0-129) HDL Cholesterol 69 mg/dL (40-60) Cholesterol/HDL Ratio 1.8 Vitamin B12 Level 1273 pg/mL (247-911) Serum Folate 11.85 ng/ml (3.2-20.0) Laboratory Tests Test 09/01/16 12:55 09/01/16 19:55 09/01/16 21:05 09/02/16 01:50 White Blood Count 18.4 x10^3/uL (4.0-11.0) 18.5 x10^3/uL (4.0-11.0) Red Blood Count 3.61 x10^6/uL (4.30-5.70) 3.58 x10^6/uL (4.30-5.70) Hemoglobin 13.2 g/dL (13.0-17.5) 13.0 g/dL (13.0-17.5) Hematocrit 37.8 % (39.0-53.0) 37.5 % (39.0-53.0) Mean Corpuscular Volume 105 fL (79-100) 105 fL (79-100) Mean Corpuscular Hemoglobin 36 pg (25-35) 36 pg (25-35) Mean Corpuscular Hemoglobin Concent 35 g/dL (31-37) 35 g/dL (31-37) Red Cell Distribution Width 15.7 % (11.5-14.5) 15.4 % (11.5-14.5) Platelet Count 71 x10^3/uL (140-400) 51 x10^3/uL (140-400) Neutrophils (%) (Auto) 89 % (31-73) 87 % (31-73) Lymphocytes (%) (Auto) 3 % (24-48) 4 % (24-48) Monocytes (%) (Auto) 8 % (0-9) 9 % (0-9) Eosinophils (%) (Auto) 0 % (0-3) 0 % (0-3) Basophils (%) (Auto) 0 % (0-3) 0 % (0-3) Neutrophils # (Auto) 16.3 x10^3uL (1.8-7.7) 16.1 x10^3uL (1.8-7.7) Lymphocytes # (Auto) 0.6 x10^3/uL (1.0-4.8) 0.7 x10^3/uL (1.0-4.8) Monocytes # (Auto) 1.4 x10^3/uL (0.0-1.1) 1.7 x10^3/uL (0.0-1.1) Eosinophils # (Auto) 0.0 x10^3/uL (0.0-0.7) 0.0 x10^3/uL (0.0-0.7) Basophils # (Auto) 0.1 x10^3/uL (0.0-0.2) 0.0 x10^3/uL (0.0-0.2) Segmented Neutrophils % 84 % (35-66) Band Neutrophils % 3 % (0-9) Lymphocytes % 4 % (24-48) Monocytes % 7 % (0-10) Eosinophils % 1 % (0-5) Basophils % 1 % (0-3) Platelet Estimate Decreased (ADEQUATE) Giant Platelets Occ Poikilocytosis Slight Anisocytosis Slight Macrocytosis Slight Ovalocytes Few [place] Bodies Present Schistocytes Few Prothrombin Time 18.0 SEC (11.7-14.0) Prothromb Time International Ratio 1.6 (0.8-1.1) Activated Partial Thromboplast Time 31 SEC (24-38) Sodium Level 134 mmol/L (136-145) 135 mmol/L (136-145) Potassium Level 3.9 mmol/L (3.5-5.1) 4.0 mmol/L (3.5-5.1) Chloride Level 99 mmol/L (98-107) 102 mmol/L (98-107) Carbon Dioxide Level 23 mmol/L (21-32) 23 mmol/L (21-32) Anion Gap 12 (6-14) 10 (6-14) Blood Urea Nitrogen 13 mg/dL (8-26) 13 mg/dL (8-26) Creatinine 1.2 mg/dL (0.7-1.3) 1.2 mg/dL (0.7-1.3) Estimated GFR (Cockcroft-Gault) 60.0 60.0 BUN/Creatinine Ratio 11 (6-20) Glucose Level 144 mg/dL (70-99) 141 mg/dL (70-99) Calcium Level 8.2 mg/dL (8.5-10.1) 7.9 mg/dL (8.5-10.1) Magnesium Level 1.3 mg/dL (1.8-2.4) 1.7 mg/dL (1.8-2.4) Total Bilirubin 3.9 mg/dL (0.2-1.0) 3.9 mg/dL (0.2-1.0) Aspartate Amino Transf (AST/SGOT) 47 U/L (15-37) 39 U/L (15-37) Alanine Aminotransferase (ALT/SGPT) 34 U/L (16-63) 32 U/L (16-63) Alkaline Phosphatase 98 U/L (46-116) 79 U/L (46-116) Creatine Kinase 177 U/L (39-308) Troponin I Quantitative 0.069 ng/mL (0.000-0.055) 0.107 ng/mL (0.000-0.055) 0.112 ng/mL (0.000-0.055) TQ-Ouz-G-Type Natriuretic Peptide 738 pg/mL (0-124) Total Protein 6.9 g/dL (6.4-8.2) 6.7 g/dL (6.4-8.2) Albumin 3.0 g/dL (3.4-5.0) 2.6 g/dL (3.4-5.0) Albumin/Globulin Ratio 0.8 (1.0-1.7) Lipase 123 U/L (73-393) Ethyl Alcohol Level < 10 mg/dL (0-10) Heparin Anti-Xa Act, Unfractionated 0.60 IU/mL (0.30-0.70) Direct Bilirubin 1.1 mg/dL (0.0-0.2) Triglycerides Level 32 mg/dL (0-150) Cholesterol Level 122 mg/dL (0-200) LDL Cholesterol, Calculated 47 mg/dL (0-100) VLDL Cholesterol, Calculated 6 mg/dL (0-40) Non-HDL Cholesterol Calculated 53 mg/dL (0-129) HDL Cholesterol 69 mg/dL (40-60) Cholesterol/HDL Ratio 1.8 Vitamin B12 Level 1273 pg/mL (247-911) Serum Folate 11.85 ng/ml (3.2-20.0) Assessment/Plan Assessment/Plan right perineal abscess, fever 103 liver disease,cirrhosis with plts 51 , inr 1.6 syncope with abnormal cardiac enzymes --plans for cardiac cath today will need I&D of abscess will review with Dr Howard on timing continue abx RAPHAEL HOWARD MD 09/02/16 1246: CONSULT Allergies Allergies: Coded Allergies: No Known Drug Allergies (Unverified , 11/08/13) Assessment/Plan Assessment/Plan Pt seen and examined independently by myself; HPI above noted, confirmed with patient, he denied having chest pain, currently feels well; states he noticed R perineal and scrotal pain starting Thursday, area seems to be getting bigger; PMH/PSH/ROS/SH as above, exam: alert, oriented, no acute distress, no scleral icterus, neck nontender, lungs clear, heart RR and R, abdomen soft, nontender, R perineum with induration, pain, fluctuance, extends to R scrotum and to R gluteus; ext neg for edema or deformity; WBC elevated; A/P) R perineal abscess, extension to gluteus and scrotum, fever, leukocytosis, recommend I and D; Cardiology planning cath, but timing now moved to tomorrow, will proceed today with I and D. The procedure was discussed with the patient and he would like to proceed. PAIGE HDZ APRN Sep 02, 2016 11:57 RAPHAEL HOWARD MD Sep 02, 2016 12:46
[2016-09-02] MEDS ORDERED: LIDOCAINE 2% PF Vial for OR 5 ML VIAL. ONE (12:40)
[2016-09-02] MEDS ORDERED: PROPOFOL 20 ML IV ONE (12:40)
[2016-09-02] MEDS ORDERED: IV RINGERS,LACTATED 1000ML 1,000 ML IV SCH (13:05)
[2016-09-02] MEDS ORDERED: PROCHLORPERAZINE 10 MG/2 ML VIAL. IV PRN ×2 (13:15→14:30)
[2016-09-02] MEDS ORDERED: MORPHINE SULFATE 2 MG/ML DISP.SYRIN. IV PRN (13:15)
[2016-09-02] MEDS ORDERED: LIDOCAINE 1% 1 ML SYRINGE. ID PRN (13:15)
[2016-09-02] MEDS ORDERED: fentaNYL PF VIAL 100 MCG/2 ML VIAL IV PRN ×2 (13:15)
[2016-09-02] MEDS ORDERED: fentaNYL PF VIAL 100 MCG/2 ML VIAL ONE (13:15)
[2016-09-02] MEDS ORDERED: HYDROmorphone 2 MG/ML VIAL IV PRN (13:15)
[2016-09-02] MEDS ORDERED: ONDANSETRON PF 4 MG/2 ML VIAL. IV PRN (13:15)
--- NOTE | 2016-09-02 13:56 | PDOC4 ---
Operative Note Operative Note Operative Note: Preoperative Diagnosis: R perineal abscess Postoperative Diagnosis: Same Procedure: Incision and Drainage of R perineal abscess Surgeon: Lee Anesthesia: Gen EBL: 20 ml Specimen: cultures to microbiology Drains: None Complications: None Indication: The patient is a 71-year-old male who presented with a 2 day history of right perineal and gluteal pain. On examination he is found to have a sizable abscess of the right perineal space extending both to the gluteus as well as the scrotum. He is advised to have incision and drainage in the operating room. The details and risks of surgery were discussed with the patient. The risks include bleeding, infection, pain, recurrence, potential need for additional surgery or procedure. He understands and would like to proceed. Description: The patient was taken to the operating room and placed supine on the operating table. Gen. anesthesia was performed. He was then placed in lithotomy. The bilateral gluteal, scrotal, perineal skin was prepped with Betadine and draped in a standard surgical manner. An incision was made in the skin of the right perineum with a scalpel. There was return of some purulent fluid which was cultured. The incision was extended some superiorly. Finger dissection was then used to free up any loculations and detect any tracts. There was some undermining superiorly and the cavity extended well up toward the scrotum. Inferiorly the abscess cavity extended some to the border of the gluteus. The entire cavity was thoroughly drained and probed. The abscess cavity was then irrigated with sterile saline. Several small bleeding points were controlled with cautery. Hemostasis was good. The wound was packed with gauze and a sterile dressing was applied. The patient tolerated the procedure well and was sent to the recovery room in stable condition. At the end of the case all counts were correct. RAPHAEL MOORE MD Sep 02, 2016 13:56
[2016-09-02] MEDS ORDERED: PROCHLORPERAZINE 5 MG TABLET. PO ONE (14:30)
--- NOTE | 2016-09-02 17:47 | PDOC ---
PROGRESS NOTES Subjective Subjective The patient is in the operating room. Objective Objective Vital Signs Date Time Temp Pulse Resp B/P (MAP) Pulse Ox O2 Delivery O2 Flow Rate FiO2 09/02/16 15:00 98.4 72 18 115/60 (78) 95 Room Air 98.4 09/02/16 13:50 10 Intake and Output 09/02/16 07:00 Intake Total 2156 ml Output Total 325 ml Balance 1831 ml Intake Oral 1130 ml IV Total 1026 ml Output Urine Total 250 ml Emesis 75 ml # Voids 1 Assessment Assessment Problems Medical Problems: (1) Nausea & vomiting Status: Acute (2) Near syncope Status: Acute (3) NSTEMI (non-ST elevated myocardial infarction) Status: Acute 1. Near syncope. Improved on IV fluids. No significant arrhythmias overnight. Possibly affected by the patient's peritoneal abscess. 2. Elevated troponin. Peak of 0.112. Nonspecific EKG changes. Consider catheterization today. Has been postponed secondary to the patient's incision and drainage of his right peritoneal abscess. We'll continue medical treatment. Will keep nothing by mouth after midnight and reevaluate cardiac testing in the morning based on the patient's clinical course. 3. Right perineal abscess. Patient receiving an incision and drainage of the abscess. IV antibiotics as per the ID service. 4. Hypomagnesemia. Improved but still decreased. We'll supplement today and recheck in the morning. 5. Thrombocytopenia. Platelet count has further decreased. Heparin discontinued yesterday. We'll continue to monitor. Comment Review of Relevant I have reviewed the following items pina (where applicable) has been applied. Labs Laboratory Tests Test 09/01/16 12:55 09/01/16 19:55 09/01/16 21:05 09/02/16 01:50 White Blood Count 18.4 x10^3/uL (4.0-11.0) 18.5 x10^3/uL (4.0-11.0) Red Blood Count 3.61 x10^6/uL (4.30-5.70) 3.58 x10^6/uL (4.30-5.70) Hemoglobin 13.2 g/dL (13.0-17.5) 13.0 g/dL (13.0-17.5) Hematocrit 37.8 % (39.0-53.0) 37.5 % (39.0-53.0) Mean Corpuscular Volume 105 fL (79-100) 105 fL (79-100) Mean Corpuscular Hemoglobin 36 pg (25-35) 36 pg (25-35) Mean Corpuscular Hemoglobin Concent 35 g/dL (31-37) 35 g/dL (31-37) Red Cell Distribution Width 15.7 % (11.5-14.5) 15.4 % (11.5-14.5) Platelet Count 71 x10^3/uL (140-400) 51 x10^3/uL (140-400) Neutrophils (%) (Auto) 89 % (31-73) 87 % (31-73) Lymphocytes (%) (Auto) 3 % (24-48) 4 % (24-48) Monocytes (%) (Auto) 8 % (0-9) 9 % (0-9) Eosinophils (%) (Auto) 0 % (0-3) 0 % (0-3) Basophils (%) (Auto) 0 % (0-3) 0 % (0-3) Neutrophils # (Auto) 16.3 x10^3uL (1.8-7.7) 16.1 x10^3uL (1.8-7.7) Lymphocytes # (Auto) 0.6 x10^3/uL (1.0-4.8) 0.7 x10^3/uL (1.0-4.8) Monocytes # (Auto) 1.4 x10^3/uL (0.0-1.1) 1.7 x10^3/uL (0.0-1.1) Eosinophils # (Auto) 0.0 x10^3/uL (0.0-0.7) 0.0 x10^3/uL (0.0-0.7) Basophils # (Auto) 0.1 x10^3/uL (0.0-0.2) 0.0 x10^3/uL (0.0-0.2) Segmented Neutrophils % 84 % (35-66) Band Neutrophils % 3 % (0-9) Lymphocytes % 4 % (24-48) Monocytes % 7 % (0-10) Eosinophils % 1 % (0-5) Basophils % 1 % (0-3) Platelet Estimate Decreased (ADEQUATE) Giant Platelets Occ Poikilocytosis Slight Anisocytosis Slight Macrocytosis Slight Ovalocytes Few Grace-Longoria Bodies Present Schistocytes Few Prothrombin Time 18.0 SEC (11.7-14.0) Prothromb Time International Ratio 1.6 (0.8-1.1) Activated Partial Thromboplast Time 31 SEC (24-38) Sodium Level 134 mmol/L (136-145) 135 mmol/L (136-145) Potassium Level 3.9 mmol/L (3.5-5.1) 4.0 mmol/L (3.5-5.1) Chloride Level 99 mmol/L (98-107) 102 mmol/L (98-107) Carbon Dioxide Level 23 mmol/L (21-32) 23 mmol/L (21-32) Anion Gap 12 (6-14) 10 (6-14) Blood Urea Nitrogen 13 mg/dL (8-26) 13 mg/dL (8-26) Creatinine 1.2 mg/dL (0.7-1.3) 1.2 mg/dL (0.7-1.3) Estimated GFR (Cockcroft-Gault) 60.0 60.0 BUN/Creatinine Ratio 11 (6-20) Glucose Level 144 mg/dL (70-99) 141 mg/dL (70-99) Calcium Level 8.2 mg/dL (8.5-10.1) 7.9 mg/dL (8.5-10.1) Magnesium Level 1.3 mg/dL (1.8-2.4) 1.7 mg/dL (1.8-2.4) Total Bilirubin 3.9 mg/dL (0.2-1.0) 3.9 mg/dL (0.2-1.0) Aspartate Amino Transf (AST/SGOT) 47 U/L (15-37) 39 U/L (15-37) Alanine Aminotransferase (ALT/SGPT) 34 U/L (16-63) 32 U/L (16-63) Alkaline Phosphatase 98 U/L (46-116) 79 U/L (46-116) Creatine Kinase 177 U/L (39-308) Troponin I Quantitative 0.069 ng/mL (0.000-0.055) 0.107 ng/mL (0.000-0.055) 0.112 ng/mL (0.000-0.055) JY-Cob-X-Type Natriuretic Peptide 738 pg/mL (0-124) Total Protein 6.9 g/dL (6.4-8.2) 6.7 g/dL (6.4-8.2) Albumin 3.0 g/dL (3.4-5.0) 2.6 g/dL (3.4-5.0) Albumin/Globulin Ratio 0.8 (1.0-1.7) Lipase 123 U/L (73-393) Ethyl Alcohol Level < 10 mg/dL (0-10) Heparin Anti-Xa Act, Unfractionated 0.60 IU/mL (0.30-0.70) Direct Bilirubin 1.1 mg/dL (0.0-0.2) Triglycerides Level 32 mg/dL (0-150) Cholesterol Level 122 mg/dL (0-200) LDL Cholesterol, Calculated 47 mg/dL (0-100) VLDL Cholesterol, Calculated 6 mg/dL (0-40) Non-HDL Cholesterol Calculated 53 mg/dL (0-129) HDL Cholesterol 69 mg/dL (40-60) Cholesterol/HDL Ratio 1.8 Vitamin B12 Level 1273 pg/mL (247-911) Serum Folate 11.85 ng/ml (3.2-20.0) Laboratory Tests Test 09/01/16 19:55 09/01/16 21:05 09/02/16 01:50 Troponin I Quantitative 0.107 ng/mL (0.000-0.055) 0.112 ng/mL (0.000-0.055) Heparin Anti-Xa Act, Unfractionated 0.60 IU/mL (0.30-0.70) White Blood Count 18.5 x10^3/uL (4.0-11.0) Red Blood Count 3.58 x10^6/uL (4.30-5.70) Hemoglobin 13.0 g/dL (13.0-17.5) Hematocrit 37.5 % (39.0-53.0) Mean Corpuscular Volume 105 fL (79-100) Mean Corpuscular Hemoglobin 36 pg (25-35) Mean Corpuscular Hemoglobin Concent 35 g/dL (31-37) Red Cell Distribution Width 15.4 % (11.5-14.5) Platelet Count 51 x10^3/uL (140-400) Neutrophils (%) (Auto) 87 % (31-73) Lymphocytes (%) (Auto) 4 % (24-48) Monocytes (%) (Auto) 9 % (0-9) Eosinophils (%) (Auto) 0 % (0-3) Basophils (%) (Auto) 0 % (0-3) Neutrophils # (Auto) 16.1 x10^3uL (1.8-7.7) Lymphocytes # (Auto) 0.7 x10^3/uL (1.0-4.8) Monocytes # (Auto) 1.7 x10^3/uL (0.0-1.1) Eosinophils # (Auto) 0.0 x10^3/uL (0.0-0.7) Basophils # (Auto) 0.0 x10^3/uL (0.0-0.2) Sodium Level 135 mmol/L (136-145) Potassium Level 4.0 mmol/L (3.5-5.1) Chloride Level 102 mmol/L (98-107) Carbon Dioxide Level 23 mmol/L (21-32) Anion Gap 10 (6-14) Blood Urea Nitrogen 13 mg/dL (8-26) Creatinine 1.2 mg/dL (0.7-1.3) Estimated GFR (Cockcroft-Gault) 60.0 Glucose Level 141 mg/dL (70-99) Calcium Level 7.9 mg/dL (8.5-10.1) Magnesium Level 1.7 mg/dL (1.8-2.4) Total Bilirubin 3.9 mg/dL (0.2-1.0) Direct Bilirubin 1.1 mg/dL (0.0-0.2) Aspartate Amino Transf (AST/SGOT) 39 U/L (15-37) Alanine Aminotransferase (ALT/SGPT) 32 U/L (16-63) Alkaline Phosphatase 79 U/L (46-116) Total Protein 6.7 g/dL (6.4-8.2) Albumin 2.6 g/dL (3.4-5.0) Triglycerides Level 32 mg/dL (0-150) Cholesterol Level 122 mg/dL (0-200) LDL Cholesterol, Calculated 47 mg/dL (0-100) VLDL Cholesterol, Calculated 6 mg/dL (0-40) Non-HDL Cholesterol Calculated 53 mg/dL (0-129) HDL Cholesterol 69 mg/dL (40-60) Cholesterol/HDL Ratio 1.8 Vitamin B12 Level 1273 pg/mL (247-911) Serum Folate 11.85 ng/ml (3.2-20.0) Microbiology 09/02/16 Gram Stain - Final, Complete Medications Current Medications Albuterol/ Ipratropium (Duoneb) 3 ml 1X ONCE NEB Last administered on 13:42; Start 09/01/16 at 12:45; Stop 09/01/16 at 12:46; Status DC Aspirin (Ecotrin) 325 mg 1X ONCE PO Last administered on 09/01/16 13:24; Start 09/01/16 at 12:45; Stop 09/01/16 at 12:46; Status DC Ondansetron HCl (Zofran) 4 mg 1X ONCE IV Last administered on 09/01/16 13:23 ; Start 09/01/16 at 12:45; Stop 09/01/16 at 12:46; Status DC Sodium Chloride 1,000 ml @ 1,000 mls/hr 1X ONCE IV Last administered on 13:23; Start 09/01/16 at 12:45; Stop 09/01/16 at 13:44; Status DC Ondansetron HCl (Zofran) 4 mg PRN Q8HRS PRN IV NAUSEA/VOMITING Last administered on 09/01/16 17:51; Start 09/01/16 at 13:45; Stop 09/02/16 at 13:44 ; Status DC Fentanyl Citrate (Fentanyl 2ml Vial) 50 mcg PRN Q2HR PRN IV PAIN; Start at 13:45; Stop 09/02/16 at 13:44; Status DC Enoxaparin Sodium (Lovenox 80mg Syringe) 70 mg 1X ONCE SQ Last administered on 09/01/16 15:04; Start 09/01/16 at 14:00; Stop 09/01/16 at 14:01; Status DC Heparin Sodium (Porcine) (Heparin Sodium) 4,000 unit 1X ONCE IV Last administered on 09/01/16 15:06; Start 09/01/16 at 14:30; Stop 09/01/16 at 15:39 ; Status DC Heparin Sodium/ Dextrose 500 ml @ 0 mls/hr CONT PRN IV SEE I/O RECORD Last administered on 09/01/16 15:05; Start 09/01/16 at 14:30; Stop 09/01/16 at 15:39 ; Status DC Heparin Sodium (Porcine) (Heparin Sodium) 1,900 unit PRN Q6HRS PRN IV FOR UFH LEVEL LESS THAN 0.2; Start 09/01/16 at 14:30; Stop 09/01/16 at 15:39; Status DC Sodium Chloride 1,000 ml @ 75 mls/hr [id number] IV Last administered on 16:54; Start 09/01/16 at 15:35 Magnesium Sulfate/ Dextrose 50 ml @ 25 mls/hr 1X ONCE IV Last administered on 09/01/16 16:53; Start 09/01/16 at 16:00; Stop 09/01/16 at 17:59; Status DC Hydralazine HCl (Apresoline) 10 mg PRN Q4HRS PRN IVP ELEVATED BP, SEE COMMENTS ; Start 09/01/16 at 16:30 Metoprolol Tartrate (Lopressor) 25 mg BID PO Last administered on 09/02/16 10: 51; Start 09/01/16 at 16:30 Acetaminophen (Tylenol) 650 mg PRN Q6HRS PRN PO FEVER Last administered on 09/02 03:24; Start 09/01/16 at 16:45 Phytonadione 10 mg/Sodium Chloride 51 ml @ 102 mls/hr 1X ONCE IV Last administered on 09/01/16 20:23; Start 09/01/16 at 18:30; Stop 09/01/16 at 18:59 ; Status DC Piperacillin Sod/ Tazobactam Sod 3.375 gm/Sodium Chloride 50 ml @ 100 mls/hr Q6HRS IV Last administered on 09/02/16 11:30; Start 09/02/16 at 12:00 Sodium Chloride 1,000 ml @ 125 mls/hr Q8H IV Last administered on 09/02/16 10 :51; Start 09/02/16 at 10:45 Lidocaine HCl 20 ml STK-MED ONCE .ROUTE ; Start 09/02/16 at 11:26; Stop at 11:27; Status DC Heparin Sodium/ Sodium Chloride 1,000 ml @ As Directed STK-MED ONCE .ROUTE ; Start 09/02/16 at 11:26; Stop 09/02/16 at 11:27; Status DC Iohexol (Omnipaque 300 Mg/ml) 100 ml STK-MED ONCE .ROUTE ; Start 09/02/16 at 11: 27; Stop 09/02/16 at 11:28; Status DC Propofol 20 ml @ As Directed STK-MED ONCE IV ; Start 09/02/16 at 12:40; Stop at 12:41; Status DC Lidocaine HCl (Lidocaine Pf 2% Vial) 5 ml STK-MED ONCE .ROUTE ; Start 09/02/16 at 12:40; Stop 09/02/16 at 12:41; Status DC Ondansetron HCl (Zofran) 4 mg PRN Q6HRS PRN IV NAUSEA/VOMITING; Start 09/02/16 at 13:15; Stop 09/03/16 at 13:14 Fentanyl Citrate (Fentanyl 2ml Vial) 25 mcg PRN Q5MIN PRN IV MILD PAIN; Start 09/02/16 at 13:15; Stop 09/03/16 at 13:14 Fentanyl Citrate (Fentanyl 2ml Vial) 50 mcg PRN Q5MIN PRN IV MODERATE PAIN; Start 09/02/16 at 13:15; Stop 09/03/16 at 13:14 Morphine Sulfate 1 mg PRN Q10MIN PRN IV SEVERE PAIN; Start 09/02/16 at 13:15; Stop 09/03/16 at 13:14 Ringer's Solution 1,000 ml @ 30 mls/hr Q24H IV Last administered on 09/02/16t 13:06; Start 09/02/16 at 13:05; Stop 09/03/16 at 01:04 Lidocaine HCl 2 ml PRN 1X PRN ID PRIOR TO IV START; Start 09/02/16 at 13:15; Stop 09/03/16 at 13:14 Hydromorphone HCl (Dilaudid) 0.5 mg PRN Q10MIN PRN IV SEV PAIN, Second choice; Start 09/02/16 at 13:15; Stop 09/03/16 at 13:14 Prochlorperazine Edisylate (Compazine) 5 mg PACU PRN PRN IV NAUSEA, MRX1 Last administered on 09/02/16t 14:26; Start 09/02/16 at 13:15; Stop 09/03/16 at 13:14 Fentanyl Citrate (Fentanyl 2ml Vial) 100 mcg STK-MED ONCE .ROUTE ; Start at 13:15; Stop 09/02/16 at 13:16; Status DC Prochlorperazine Maleate (Compazine) 5 mg 1X ONCE PO ; Start 09/02/16 at 14:30 ; Stop 09/02/16 at 14:31; Status DC Prochlorperazine Edisylate (Compazine) 5 mg PACU PRN PRN IV NAUSEA; Start 09/02 at 14:30 Active Scripts Active Multivitamins (Multivitamin) 1 Each Tablet 1 Tab PO DAILY [Propranolol Hcl] 10 MG Tablet 10 Mg PO BID Protonix (Pantoprazole Sodium) 40 Mg Tablet 40 Mg PO DAILYAC Reported Spironolactone 25 Mg Tablet 1 Tab PO DAILY Azathioprine 50 Mg Tablet 3 Tab PO DAILY Levothyroxine Sodium 75 Mcg Tablet 1 Tab PO DAILY Vitals/I & O Vital Sign - Last 24 Hours 09/01/16 09/01/16 09/01/16 09/01/16 18:05 19:50 20:00 22:55 Temp 100.8 100.1 100.5 100.8 100.1 100.5 Pulse 90 73 89 Resp 18 20 B/P (MAP) 174/81 (112) 114/51 (72) 124/76 (92) Pulse Ox 95 98 99 O2 Delivery Room Air Room Air Room Air 09/02/16 09/02/16 09/02/16 09/02/16 03:20 07:25 08:10 10:51 Temp 103.0 98.6 103.0 98.6 Pulse 94 94 94 Resp 18 18 B/P (MAP) 132/71 (91) 102/58 (73) 102/58 Pulse Ox 96 97 O2 Delivery Room Air Room Air Room Air 09/02/16 09/02/16 09/02/16 09/02/16 11:00 13:02 13:50 13:50 Temp 98.7 100.2 100.6 98.7 100.2 100.6 Pulse 81 60 62 Resp 18 18 15 B/P (MAP) 126/56 (79) 128/70 81/48 Pulse Ox 94 99 100 O2 Delivery Room Air Room Air Room Air Simple Mask O2 Flow Rate 10 09/02/16 09/02/16 09/02/16 14:05 14:20 15:00 Temp 100.6 100.6 98.4 100.6 100.6 98.4 Pulse 70 67 72 Resp 15 15 18 B/P (MAP) 106/53 105/58 115/60 (78) Pulse Ox 98 97 95 O2 Delivery Room Air Room Air Room Air Intake and Output 09/01/16 09/01/16 09/02/16 15:00 23:00 07:00 Intake Total 460 ml 1696 ml Output Total 325 ml Balance 135 ml 1696 ml ALONSO REDDY MD Sep 02, 2016 17:47
[2016-09-02] MEDS ORDERED: MAGNESIUM SULFATE 2GM 50 ML IV ONE (18:00)
[2016-09-03] MEDS: IV NORMAL SALINE 1000ML BAG 1,000 ML IV SCH ×3 (02:15→18:45)
[2016-09-03 03:00] VITALS: BP 104/56
[2016-09-03 03:51] LABS: BASO % 0 % (0-3); EOS % 0 % (0-3); HEMATOCRIT 34.1 % (39.0-53.0); HEMOGLOBIN 11.8 g/dL (13.0-17.5); LYMPH # 0.3 x10^3/uL (1.0-4.8); LYMPH % 2 % (24-48); MEAN CORPUSCULAR HEMOGLOBIN 36 pg (25-35); MEAN CORPUSCULAR HGB CONC 35 g/dL (31-37); MEAN CORPUSCULAR VOLUME 105 fL (79-100); MONO % 6 % (0-9); NEUT % 92 % (31-73); PLATELET COUNT 39 x10^3/uL (140-400); RED BLOOD COUNT 3.25 x10^6/uL (4.30-5.70); RED CELL DISTRIBUTION WIDTH 15.3 % (11.5-14.5); WHITE BLOOD COUNT 14.1 x10^3/uL (4.0-11.0)
[2016-09-03 04:11] LABS: CALCIUM 7.8 mg/dL (8.5-10.1); CREATININE 1.1 mg/dL (0.7-1.3); GFR 66.4; MAGNESIUM 2.1 mg/dL (1.8-2.4); POTASSIUM 4.5 mmol/L (3.5-5.1)
[2016-09-03] MEDS: PIPERACILLIN/TAZOBACTAM 3.375 GM in IV NORMAL SALINE 50ML 50 ML IV SCH ×3 (06:10→18:09)
[2016-09-03 06:45] VITALS: BP 138/70
[2016-09-03] MEDS: METOPROLOL TART IMMED RELEASE 25 MG TABLET. PO SCH (09:00)
[2016-09-03 11:00] VITALS: BP 140/72
--- NOTE | 2016-09-03 11:12 | PDOC ---
PROGRESS NOTES Chief Complaint Chief Complaint A/P CP with Elevated troponin, : on AC, Cardiac cancerization today SIRS due to perineal abscess with fevers: s/p I and D (09/02) Diarrhea, /dizziness: improved. Autoimmune hepatitis, HX etohism Thrombocytopenia History of Present Illness History of Present Illness Groin inspected, packing on R side of anterior part genital area, redness and induration appreciable extending to the posterior area NO fevers WBC 14.1 from 18 On IV zosyn Platelets low - known to pt Admits to heavy etohism - stopped 3 yrs ago- Used to see dr. zaragoza NO overt bleeding CARdiac cath held bec of low platelets Heme onc now on board - ordered for MRI PLAN: Ok for diet today Ff up MRI labs bryan AM COnt iv zosyn Follow cultures dw RN Vitals Vitals Vital Signs Date Time Temp Pulse Resp B/P (MAP) Pulse Ox O2 Delivery O2 Flow Rate FiO2 09/03/16 11:00 97.9 66 20 140/72 (94) 98 Room Air 97.9 09/02/16 20:07 10.0 Physical Exam General: Alert, Oriented X3, Cooperative, No acute distress Heart: Regular rate, Normal S1, Normal S2 Lungs: Clear Abdomen: Normal bowel sounds, Soft, Other (perineal abscess. ) Extremities: No clubbing, No cyanosis Skin: Other (right perineal extending to groin with erythema, induration, central fluctuance, very small opening with bloody/purulent drainage, midl tenderness to scrotume, no induration noted to scrotum, small pustule in right groin seperate from abscess area) Labs LABS Laboratory Tests Test 09/03/16 03:15 09/03/16 10:20 White Blood Count 14.1 x10^3/uL (4.0-11.0) Red Blood Count 3.25 x10^6/uL (4.30-5.70) Hemoglobin 11.8 g/dL (13.0-17.5) Hematocrit 34.1 % (39.0-53.0) Mean Corpuscular Volume 105 fL (79-100) Mean Corpuscular Hemoglobin 36 pg (25-35) Mean Corpuscular Hemoglobin Concent 35 g/dL (31-37) Red Cell Distribution Width 15.3 % (11.5-14.5) Platelet Count 39 x10^3/uL (140-400) Neutrophils (%) (Auto) 92 % (31-73) Lymphocytes (%) (Auto) 2 % (24-48) Monocytes (%) (Auto) 6 % (0-9) Eosinophils (%) (Auto) 0 % (0-3) Basophils (%) (Auto) 0 % (0-3) Neutrophils # (Auto) 12.9 x10^3uL (1.8-7.7) Lymphocytes # (Auto) 0.3 x10^3/uL (1.0-4.8) Monocytes # (Auto) 0.8 x10^3/uL (0.0-1.1) Eosinophils # (Auto) 0.0 x10^3/uL (0.0-0.7) Basophils # (Auto) 0.0 x10^3/uL (0.0-0.2) Sodium Level 136 mmol/L (136-145) Potassium Level 4.5 mmol/L (3.5-5.1) Chloride Level 106 mmol/L (98-107) Carbon Dioxide Level 24 mmol/L (21-32) Anion Gap 6 (6-14) Blood Urea Nitrogen 20 mg/dL (8-26) Creatinine 1.1 mg/dL (0.7-1.3) Estimated GFR (Cockcroft-Gault) 66.4 Glucose Level 199 mg/dL (70-99) Calcium Level 7.8 mg/dL (8.5-10.1) Magnesium Level 2.1 mg/dL (1.8-2.4) Fibrinogen 402 mg/dL (200-440) Review of Systems Review of Systems denies cp, fevers, pain, n,v,d Assessment and Plan Assessmemt and Plan Problems Medical Problems: (1) Nausea & vomiting Status: Acute (2) Near syncope Status: Acute (3) NSTEMI (non-ST elevated myocardial infarction) Status: Acute Problems: Comment Review of Relevant I have reviewed the following items pina (where applicable) has been applied. Labs Laboratory Tests Test 09/01/16 12:55 09/01/16 19:55 09/01/16 21:05 09/02/16 01:50 White Blood Count 18.4 x10^3/uL (4.0-11.0) 18.5 x10^3/uL (4.0-11.0) Red Blood Count 3.61 x10^6/uL (4.30-5.70) 3.58 x10^6/uL (4.30-5.70) Hemoglobin 13.2 g/dL (13.0-17.5) 13.0 g/dL (13.0-17.5) Hematocrit 37.8 % (39.0-53.0) 37.5 % (39.0-53.0) Mean Corpuscular Volume 105 fL (79-100) 105 fL (79-100) Mean Corpuscular Hemoglobin 36 pg (25-35) 36 pg (25-35) Mean Corpuscular Hemoglobin Concent 35 g/dL (31-37) 35 g/dL (31-37) Red Cell Distribution Width 15.7 % (11.5-14.5) 15.4 % (11.5-14.5) Platelet Count 71 x10^3/uL (140-400) 51 x10^3/uL (140-400) Neutrophils (%) (Auto) 89 % (31-73) 87 % (31-73) Lymphocytes (%) (Auto) 3 % (24-48) 4 % (24-48) Monocytes (%) (Auto) 8 % (0-9) 9 % (0-9) Eosinophils (%) (Auto) 0 % (0-3) 0 % (0-3) Basophils (%) (Auto) 0 % (0-3) 0 % (0-3) Neutrophils # (Auto) 16.3 x10^3uL (1.8-7.7) 16.1 x10^3uL (1.8-7.7) Lymphocytes # (Auto) 0.6 x10^3/uL (1.0-4.8) 0.7 x10^3/uL (1.0-4.8) Monocytes # (Auto) 1.4 x10^3/uL (0.0-1.1) 1.7 x10^3/uL (0.0-1.1) Eosinophils # (Auto) 0.0 x10^3/uL (0.0-0.7) 0.0 x10^3/uL (0.0-0.7) Basophils # (Auto) 0.1 x10^3/uL (0.0-0.2) 0.0 x10^3/uL (0.0-0.2) Segmented Neutrophils % 84 % (35-66) Band Neutrophils % 3 % (0-9) Lymphocytes % 4 % (24-48) Monocytes % 7 % (0-10) Eosinophils % 1 % (0-5) Basophils % 1 % (0-3) Platelet Estimate Decreased (ADEQUATE) Giant Platelets Occ Poikilocytosis Slight Anisocytosis Slight Macrocytosis Slight Ovalocytes Few [place] Bodies Present Schistocytes Few Prothrombin Time 18.0 SEC (11.7-14.0) Prothromb Time International Ratio 1.6 (0.8-1.1) Activated Partial Thromboplast Time 31 SEC (24-38) Sodium Level 134 mmol/L (136-145) 135 mmol/L (136-145) Potassium Level 3.9 mmol/L (3.5-5.1) 4.0 mmol/L (3.5-5.1) Chloride Level 99 mmol/L (98-107) 102 mmol/L (98-107) Carbon Dioxide Level 23 mmol/L (21-32) 23 mmol/L (21-32) Anion Gap 12 (6-14) 10 (6-14) Blood Urea Nitrogen 13 mg/dL (8-26) 13 mg/dL (8-26) Creatinine 1.2 mg/dL (0.7-1.3) 1.2 mg/dL (0.7-1.3) Estimated GFR (Cockcroft-Gault) 60.0 60.0 BUN/Creatinine Ratio 11 (6-20) Glucose Level 144 mg/dL (70-99) 141 mg/dL (70-99) Calcium Level 8.2 mg/dL (8.5-10.1) 7.9 mg/dL (8.5-10.1) Magnesium Level 1.3 mg/dL (1.8-2.4) 1.7 mg/dL (1.8-2.4) Total Bilirubin 3.9 mg/dL (0.2-1.0) 3.9 mg/dL (0.2-1.0) Aspartate Amino Transf (AST/SGOT) 47 U/L (15-37) 39 U/L (15-37) Alanine Aminotransferase (ALT/SGPT) 34 U/L (16-63) 32 U/L (16-63) Alkaline Phosphatase 98 U/L (46-116) 79 U/L (46-116) Creatine Kinase 177 U/L (39-308) Troponin I Quantitative 0.069 ng/mL (0.000-0.055) 0.107 ng/mL (0.000-0.055) 0.112 ng/mL (0.000-0.055) FQ-Vhm-O-Type Natriuretic Peptide 738 pg/mL (0-124) Total Protein 6.9 g/dL (6.4-8.2) 6.7 g/dL (6.4-8.2) Albumin 3.0 g/dL (3.4-5.0) 2.6 g/dL (3.4-5.0) Albumin/Globulin Ratio 0.8 (1.0-1.7) Lipase 123 U/L (73-393) Ethyl Alcohol Level < 10 mg/dL (0-10) Heparin Anti-Xa Act, Unfractionated 0.60 IU/mL (0.30-0.70) Direct Bilirubin 1.1 mg/dL (0.0-0.2) Triglycerides Level 32 mg/dL (0-150) Cholesterol Level 122 mg/dL (0-200) LDL Cholesterol, Calculated 47 mg/dL (0-100) VLDL Cholesterol, Calculated 6 mg/dL (0-40) Non-HDL Cholesterol Calculated 53 mg/dL (0-129) HDL Cholesterol 69 mg/dL (40-60) Cholesterol/HDL Ratio 1.8 Vitamin B12 Level 1273 pg/mL (247-911) Serum Folate 11.85 ng/ml (3.2-20.0) Test 09/03/16 03:15 09/03/16 10:20 White Blood Count 14.1 x10^3/uL (4.0-11.0) Red Blood Count 3.25 x10^6/uL (4.30-5.70) Hemoglobin 11.8 g/dL (13.0-17.5) Hematocrit 34.1 % (39.0-53.0) Mean Corpuscular Volume 105 fL (79-100) Mean Corpuscular Hemoglobin 36 pg (25-35) Mean Corpuscular Hemoglobin Concent 35 g/dL (31-37) Red Cell Distribution Width 15.3 % (11.5-14.5) Platelet Count 39 x10^3/uL (140-400) Neutrophils (%) (Auto) 92 % (31-73) Lymphocytes (%) (Auto) 2 % (24-48) Monocytes (%) (Auto) 6 % (0-9) Eosinophils (%) (Auto) 0 % (0-3) Basophils (%) (Auto) 0 % (0-3) Neutrophils # (Auto) 12.9 x10^3uL (1.8-7.7) Lymphocytes # (Auto) 0.3 x10^3/uL (1.0-4.8) Monocytes # (Auto) 0.8 x10^3/uL (0.0-1.1) Eosinophils # (Auto) 0.0 x10^3/uL (0.0-0.7) Basophils # (Auto) 0.0 x10^3/uL (0.0-0.2) Sodium Level 136 mmol/L (136-145) Potassium Level 4.5 mmol/L (3.5-5.1) Chloride Level 106 mmol/L (98-107) Carbon Dioxide Level 24 mmol/L (21-32) Anion Gap 6 (6-14) Blood Urea Nitrogen 20 mg/dL (8-26) Creatinine 1.1 mg/dL (0.7-1.3) Estimated GFR (Cockcroft-Gault) 66.4 Glucose Level 199 mg/dL (70-99) Calcium Level 7.8 mg/dL (8.5-10.1) Magnesium Level 2.1 mg/dL (1.8-2.4) Fibrinogen 402 mg/dL (200-440) Laboratory Tests Test 09/03/16 03:15 09/03/16 10:20 White Blood Count 14.1 x10^3/uL (4.0-11.0) Red Blood Count 3.25 x10^6/uL (4.30-5.70) Hemoglobin 11.8 g/dL (13.0-17.5) Hematocrit 34.1 % (39.0-53.0) Mean Corpuscular Volume 105 fL (79-100) Mean Corpuscular Hemoglobin 36 pg (25-35) Mean Corpuscular Hemoglobin Concent 35 g/dL (31-37) Red Cell Distribution Width 15.3 % (11.5-14.5) Platelet Count 39 x10^3/uL (140-400) Neutrophils (%) (Auto) 92 % (31-73) Lymphocytes (%) (Auto) 2 % (24-48) Monocytes (%) (Auto) 6 % (0-9) Eosinophils (%) (Auto) 0 % (0-3) Basophils (%) (Auto) 0 % (0-3) Neutrophils # (Auto) 12.9 x10^3uL (1.8-7.7) Lymphocytes # (Auto) 0.3 x10^3/uL (1.0-4.8) Monocytes # (Auto) 0.8 x10^3/uL (0.0-1.1) Eosinophils # (Auto) 0.0 x10^3/uL (0.0-0.7) Basophils # (Auto) 0.0 x10^3/uL (0.0-0.2) Sodium Level 136 mmol/L (136-145) Potassium Level 4.5 mmol/L (3.5-5.1) Chloride Level 106 mmol/L (98-107) Carbon Dioxide Level 24 mmol/L (21-32) Anion Gap 6 (6-14) Blood Urea Nitrogen 20 mg/dL (8-26) Creatinine 1.1 mg/dL (0.7-1.3) Estimated GFR (Cockcroft-Gault) 66.4 Glucose Level 199 mg/dL (70-99) Calcium Level 7.8 mg/dL (8.5-10.1) Magnesium Level 2.1 mg/dL (1.8-2.4) Fibrinogen 402 mg/dL (200-440) Microbiology 09/02/16 Gram Stain - Final, Complete Medications Current Medications Albuterol/ Ipratropium (Duoneb) 3 ml 1X ONCE NEB Last administered on 13:42; Start 09/01/16 at 12:45; Stop 09/01/16 at 12:46; Status DC Aspirin (Ecotrin) 325 mg 1X ONCE PO Last administered on 09/01/16 13:24; Start 09/01/16 at 12:45; Stop 09/01/16 at 12:46; Status DC Ondansetron HCl (Zofran) 4 mg 1X ONCE IV Last administered on 09/01/16 13:23 ; Start 09/01/16 at 12:45; Stop 09/01/16 at 12:46; Status DC Sodium Chloride 1,000 ml @ 1,000 mls/hr 1X ONCE IV Last administered on 13:23; Start 09/01/16 at 12:45; Stop 09/01/16 at 13:44; Status DC Ondansetron HCl (Zofran) 4 mg PRN Q8HRS PRN IV NAUSEA/VOMITING Last administered on 09/01/16 17:51; Start 09/01/16 at 13:45; Stop 09/02/16 at 13:44 ; Status DC Fentanyl Citrate (Fentanyl 2ml Vial) 50 mcg PRN Q2HR PRN IV PAIN; Start at 13:45; Stop 09/02/16 at 13:44; Status DC Enoxaparin Sodium (Lovenox 80mg Syringe) 70 mg 1X ONCE SQ Last administered on 09/01/16 15:04; Start 09/01/16 at 14:00; Stop 09/01/16 at 14:01; Status DC Heparin Sodium (Porcine) (Heparin Sodium) 4,000 unit 1X ONCE IV Last administered on 09/01/16 15:06; Start 09/01/16 at 14:30; Stop 09/01/16 at 15:39 ; Status DC Heparin Sodium/ Dextrose 500 ml @ 0 mls/hr CONT PRN IV SEE I/O RECORD Last administered on 09/01/16 15:05; Start 09/01/16 at 14:30; Stop 09/01/16 at 15:39 ; Status DC Heparin Sodium (Porcine) (Heparin Sodium) 1,900 unit PRN Q6HRS PRN IV FOR UFH LEVEL LESS THAN 0.2; Start 09/01/16 at 14:30; Stop 09/01/16 at 15:39; Status DC Sodium Chloride 1,000 ml @ 75 mls/hr [id number] IV Last administered on 16:54; Start 09/01/16 at 15:35; Stop 09/02/16 at 19:23; Status DC Magnesium Sulfate/ Dextrose 50 ml @ 25 mls/hr 1X ONCE IV Last administered on 09/01/16 16:53; Start 09/01/16 at 16:00; Stop 09/01/16 at 17:59; Status DC Hydralazine HCl (Apresoline) 10 mg PRN Q4HRS PRN IVP ELEVATED BP, SEE COMMENTS ; Start 09/01/16 at 16:30 Metoprolol Tartrate (Lopressor) 25 mg BID PO Last administered on 09/02/16 21: 03; Start 09/01/16 at 16:30 Acetaminophen (Tylenol) 650 mg PRN Q6HRS PRN PO FEVER Last administered on 09/02 03:24; Start 09/01/16 at 16:45 Phytonadione 10 mg/Sodium Chloride 51 ml @ 102 mls/hr 1X ONCE IV Last administered on 09/01/16 20:23; Start 09/01/16 at 18:30; Stop 09/01/16 at 18:59 ; Status DC Piperacillin Sod/ Tazobactam Sod 3.375 gm/Sodium Chloride 50 ml @ 100 mls/hr Q6HRS IV Last administered on 09/03/16 06:10; Start 09/02/16 at 12:00 Sodium Chloride 1,000 ml @ 125 mls/hr Q8H IV Last administered on 09/03/16 02 :15; Start 09/02/16 at 10:45 Lidocaine HCl 20 ml STK-MED ONCE .ROUTE ; Start 09/02/16 at 11:26; Stop at 11:27; Status DC Heparin Sodium/ Sodium Chloride 1,000 ml @ As Directed STK-MED ONCE .ROUTE ; Start 09/02/16 at 11:26; Stop 09/02/16 at 11:27; Status DC Iohexol (Omnipaque 300 Mg/ml) 100 ml STK-MED ONCE .ROUTE ; Start 09/02/16 at 11: 27; Stop 09/02/16 at 11:28; Status DC Propofol 20 ml @ As Directed STK-MED ONCE IV ; Start 09/02/16 at 12:40; Stop at 12:41; Status DC Lidocaine HCl (Lidocaine Pf 2% Vial) 5 ml STK-MED ONCE .ROUTE ; Start 09/02/16 at 12:40; Stop 09/02/16 at 12:41; Status DC Ondansetron HCl (Zofran) 4 mg PRN Q6HRS PRN IV NAUSEA/VOMITING; Start 09/02/16 at 13:15; Stop 09/03/16 at 13:14 Fentanyl Citrate (Fentanyl 2ml Vial) 25 mcg PRN Q5MIN PRN IV MILD PAIN; Start 09/02/16 at 13:15; Stop 09/03/16 at 13:14 Fentanyl Citrate (Fentanyl 2ml Vial) 50 mcg PRN Q5MIN PRN IV MODERATE PAIN; Start 09/02/16 at 13:15; Stop 09/03/16 at 13:14 Morphine Sulfate 1 mg PRN Q10MIN PRN IV SEVERE PAIN; Start 09/02/16 at 13:15; Stop 09/03/16 at 13:14 Ringer's Solution 1,000 ml @ 30 mls/hr Q24H IV Last administered on 09/02/16t 13:06; Start 09/02/16 at 13:05; Stop 09/03/16 at 01:04; Status DC Lidocaine HCl 2 ml PRN 1X PRN ID PRIOR TO IV START; Start 09/02/16 at 13:15; Stop 09/03/16 at 13:14 Hydromorphone HCl (Dilaudid) 0.5 mg PRN Q10MIN PRN IV SEV PAIN, Second choice; Start 09/02/16 at 13:15; Stop 09/03/16 at 13:14 Prochlorperazine Edisylate (Compazine) 5 mg PACU PRN PRN IV NAUSEA, MRX1 Last administered on 09/02/16t 14:26; Start 09/02/16 at 13:15; Stop 09/03/16 at 13:14 Fentanyl Citrate (Fentanyl 2ml Vial) 100 mcg STK-MED ONCE .ROUTE ; Start at 13:15; Stop 09/02/16 at 13:16; Status DC Prochlorperazine Maleate (Compazine) 5 mg 1X ONCE PO ; Start 09/02/16 at 14:30 ; Stop 09/02/16 at 14:31; Status DC Prochlorperazine Edisylate (Compazine) 5 mg PACU PRN PRN IV NAUSEA; Start 09/02 at 14:30 Magnesium Sulfate/ Dextrose 50 ml @ 25 mls/hr 1X ONCE IV Last administered on 09/02/16t 18:25; Start 09/02/16 at 18:00; Stop 09/02/16 at 19:59; Status DC Active Scripts Active Multivitamins (Multivitamin) 1 Each Tablet 1 Tab PO DAILY [Propranolol Hcl] 10 MG Tablet 10 Mg PO BID Protonix (Pantoprazole Sodium) 40 Mg Tablet 40 Mg PO DAILYAC Reported Spironolactone 25 Mg Tablet 1 Tab PO DAILY Azathioprine 50 Mg Tablet 3 Tab PO DAILY Levothyroxine Sodium 75 Mcg Tablet 1 Tab PO DAILY Vitals/I & O Vital Sign - Last 24 Hours 09/02/16 09/02/16 09/02/16 09/02/16 13:02 13:50 13:50 14:05 Temp 100.2 100.6 100.6 100.2 100.6 100.6 Pulse 60 62 70 Resp 18 15 15 B/P (MAP) 128/70 81/48 106/53 Pulse Ox 99 100 98 O2 Delivery Room Air Room Air Simple Mask Room Air O2 Flow Rate 10 09/02/16 09/02/16 09/02/16 09/02/16 14:20 15:00 15:15 15:30 Temp 100.6 98.4 100.6 98.4 Pulse 67 72 66 63 Resp 15 18 B/P (MAP) 105/58 115/60 (78) 100/51 (67) 100/47 (64) Pulse Ox 97 95 O2 Delivery Room Air Room Air 09/02/16 09/02/16 09/02/16 09/02/16 15:45 16:00 16:15 16:45 Pulse 58 59 60 62 B/P (MAP) 96/50 (65) 95/64 (74) 119/61 (80) 121/67 (85) 09/02/16 09/02/16 09/02/16 09/02/16 17:45 19:41 20:07 21:03 Temp 97.9 97.9 Pulse 60 58 58 Resp 20 B/P (MAP) 113/67 (82) 110/64 (79) 110/64 Pulse Ox 94 O2 Delivery Room Air Room Air O2 Flow Rate 10.0 09/02/16 09/03/16 09/03/16 09/03/16 23:18 03:00 06:45 08:00 Temp 97.7 97.5 97.8 97.7 97.5 97.8 Pulse 57 49 53 Resp 20 18 24 B/P (MAP) 94/67 (76) 104/56 (72) 138/70 (92) Pulse Ox 95 98 98 O2 Delivery Room Air Room Air Room Air Room Air 09/03/16 09/03/16 09:00 11:00 Temp 97.9 97.9 Pulse 48 66 Resp 20 B/P (MAP) 140/72 (94) Pulse Ox 98 O2 Delivery Room Air Intake and Output 09/02/16 09/02/16 09/03/16 14:59 22:59 06:59 Intake Total 600 ml 240 ml Output Total 625 ml Balance 600 ml -625 ml 240 ml BEATA STRONG MD Sep 03, 2016 11:12
[2016-09-03 11:21] LABS: % SAT IRON 30 % (15-34); IRON,SERUM 48 ug/dL (65-175)
[2016-09-03] MEDS ORDERED: LORazepam 1 MG TABLET PO ONE (12:00)
--- NOTE | 2016-09-03 12:14 | PDOC ---
Provider Note Provider Note Onc consult dictated- [id number] Acute on chronic thrombocytopenia- Baseline ~ 95, likely due to cirrhosis. Worsening likely with infection. Coagulopathy- Likely cirrhosis related NSTEMI- Cath on hold until plt improve. Heparin on hold with low plt but do not suspect HIT Liver lesion- MRI abd ordered Perineal abscess s/p I&D Thank you. GALE EPSTEIN DO Sep 03, 2016 12:14
--- NOTE | 2016-09-03 12:24 | PDOC ---
Subjective: Subjective: Feeling okay, some SOA. Objective: Objective: D/w RN. Vital Signs: Vital Signs Date Time Temp Pulse Resp B/P (MAP) Pulse Ox O2 Delivery O2 Flow Rate FiO2 09/03/16 11:00 97.9 66 20 140/72 (94) 98 Room Air 97.9 09/02/16 20:07 10.0 Labs: Laboratory Tests Test 09/03/16 03:15 09/03/16 10:20 White Blood Count 14.1 x10^3/uL Red Blood Count 3.25 x10^6/uL Hemoglobin 11.8 g/dL Hematocrit 34.1 % Mean Corpuscular Volume 105 fL Mean Corpuscular Hemoglobin 36 pg Mean Corpuscular Hemoglobin Concent 35 g/dL Red Cell Distribution Width 15.3 % Platelet Count 39 x10^3/uL Neutrophils (%) (Auto) 92 % Lymphocytes (%) (Auto) 2 % Monocytes (%) (Auto) 6 % Eosinophils (%) (Auto) 0 % Basophils (%) (Auto) 0 % Neutrophils # (Auto) 12.9 x10^3uL Lymphocytes # (Auto) 0.3 x10^3/uL Monocytes # (Auto) 0.8 x10^3/uL Eosinophils # (Auto) 0.0 x10^3/uL Basophils # (Auto) 0.0 x10^3/uL Sodium Level 136 mmol/L Potassium Level 4.5 mmol/L Chloride Level 106 mmol/L Carbon Dioxide Level 24 mmol/L Anion Gap 6 Blood Urea Nitrogen 20 mg/dL Creatinine 1.1 mg/dL Estimated GFR (Cockcroft-Gault) 66.4 Glucose Level 199 mg/dL Calcium Level 7.8 mg/dL Magnesium Level 2.1 mg/dL Fibrinogen 402 mg/dL Iron Level 48 ug/dL Total Iron Binding Capacity 160 ug/dL Iron Saturation 30 % Ferritin 347 ng/mL Thyroid Stimulating Hormone (TSH) 0.332 uIU/mL Imaging: Abd US 09/01/16 IMPRESSION: 1. 2 cm hyperechoic mass in the right hepatic lobe. Mild hepatic surface nodularity suggests cirrhotic change. MRI of the abdomen with/without contrast versus multiphase CT is recommended for further characterization. 2. Mild gallbladder wall thickening can be seen in the setting of liver disease. No clear sonographic evidence of acute cholecystitis. PE: GEN: NAD LUNGS: ?soft exp wheeze HEART: bradycardic ABD: non-tender NEURO/PSYCH: A & O 3 A/P: Near syncope, abnormal EKG, elevated troponin -heart cath on hold w/ thrombocytopenia Autoimmune hepatitis, cirrhosis, thrombocytopenia -follows w/ Dr. Pinto, on spironolactone and Imuran -h/o esophageal varices/banding 2013 Right hepatic lobe mass -US as above S/p I&D perineal abscess -on atbx -- Hematology now following, MRI abd ordered. On Imuran 150mg QD - not restarted yet here. RUTH CALDERÓN Sep 03, 2016 12:24
[2016-09-03] MEDS ORDERED: GADOBUTROL 10 MMOL/10 ML VIAL IV ONE (12:30)
--- NOTE | 2016-09-03 13:44 | PDOC ---
PROGRESS NOTES Subjective Subjective pt feeling well, MRI ordered to evaluate liver lesion Objective Objective Vital Signs Date Time Temp Pulse Resp B/P (MAP) Pulse Ox O2 Delivery O2 Flow Rate FiO2 09/03/16 11:00 97.9 66 20 140/72 (94) 98 Room Air 97.9 09/02/16 20:07 10.0 Intake and Output 09/03/16 07:00 Intake Total 840 ml Output Total 625 ml Balance 215 ml Intake Oral 240 ml IV Total 600 ml Output Urine Total 625 ml # Voids 2 Physical Exam Physical Exam dressing intact Assessment Assessment Problems Medical Problems: (1) Nausea & vomiting Status: Acute (2) Near syncope Status: Acute (3) NSTEMI (non-ST elevated myocardial infarction) Status: Acute Plan Plan of Care Wound care to see today, will do dressing change; no new recs Comment Review of Relevant I have reviewed the following items pina (where applicable) has been applied. Labs Laboratory Tests Test 09/01/16 19:55 09/01/16 21:05 09/02/16 01:50 09/03/16 03:15 Troponin I Quantitative 0.107 ng/mL (0.000-0.055) 0.112 ng/mL (0.000-0.055) Heparin Anti-Xa Act, Unfractionated 0.60 IU/mL (0.30-0.70) White Blood Count 18.5 x10^3/uL (4.0-11.0) 14.1 x10^3/uL (4.0-11.0) Red Blood Count 3.58 x10^6/uL (4.30-5.70) 3.25 x10^6/uL (4.30-5.70) Hemoglobin 13.0 g/dL (13.0-17.5) 11.8 g/dL (13.0-17.5) Hematocrit 37.5 % (39.0-53.0) 34.1 % (39.0-53.0) Mean Corpuscular Volume 105 fL (79-100) 105 fL (79-100) Mean Corpuscular Hemoglobin 36 pg (25-35) 36 pg (25-35) Mean Corpuscular Hemoglobin Concent 35 g/dL (31-37) 35 g/dL (31-37) Red Cell Distribution Width 15.4 % (11.5-14.5) 15.3 % (11.5-14.5) Platelet Count 51 x10^3/uL (140-400) 39 x10^3/uL (140-400) Neutrophils (%) (Auto) 87 % (31-73) 92 % (31-73) Lymphocytes (%) (Auto) 4 % (24-48) 2 % (24-48) Monocytes (%) (Auto) 9 % (0-9) 6 % (0-9) Eosinophils (%) (Auto) 0 % (0-3) 0 % (0-3) Basophils (%) (Auto) 0 % (0-3) 0 % (0-3) Neutrophils # (Auto) 16.1 x10^3uL (1.8-7.7) 12.9 x10^3uL (1.8-7.7) Lymphocytes # (Auto) 0.7 x10^3/uL (1.0-4.8) 0.3 x10^3/uL (1.0-4.8) Monocytes # (Auto) 1.7 x10^3/uL (0.0-1.1) 0.8 x10^3/uL (0.0-1.1) Eosinophils # (Auto) 0.0 x10^3/uL (0.0-0.7) 0.0 x10^3/uL (0.0-0.7) Basophils # (Auto) 0.0 x10^3/uL (0.0-0.2) 0.0 x10^3/uL (0.0-0.2) Sodium Level 135 mmol/L (136-145) 136 mmol/L (136-145) Potassium Level 4.0 mmol/L (3.5-5.1) 4.5 mmol/L (3.5-5.1) Chloride Level 102 mmol/L (98-107) 106 mmol/L (98-107) Carbon Dioxide Level 23 mmol/L (21-32) 24 mmol/L (21-32) Anion Gap 10 (6-14) 6 (6-14) Blood Urea Nitrogen 13 mg/dL (8-26) 20 mg/dL (8-26) Creatinine 1.2 mg/dL (0.7-1.3) 1.1 mg/dL (0.7-1.3) Estimated GFR (Cockcroft-Gault) 60.0 66.4 Glucose Level 141 mg/dL (70-99) 199 mg/dL (70-99) Calcium Level 7.9 mg/dL (8.5-10.1) 7.8 mg/dL (8.5-10.1) Magnesium Level 1.7 mg/dL (1.8-2.4) 2.1 mg/dL (1.8-2.4) Total Bilirubin 3.9 mg/dL (0.2-1.0) Direct Bilirubin 1.1 mg/dL (0.0-0.2) Aspartate Amino Transf (AST/SGOT) 39 U/L (15-37) Alanine Aminotransferase (ALT/SGPT) 32 U/L (16-63) Alkaline Phosphatase 79 U/L (46-116) Total Protein 6.7 g/dL (6.4-8.2) Albumin 2.6 g/dL (3.4-5.0) Triglycerides Level 32 mg/dL (0-150) Cholesterol Level 122 mg/dL (0-200) LDL Cholesterol, Calculated 47 mg/dL (0-100) VLDL Cholesterol, Calculated 6 mg/dL (0-40) Non-HDL Cholesterol Calculated 53 mg/dL (0-129) HDL Cholesterol 69 mg/dL (40-60) Cholesterol/HDL Ratio 1.8 Vitamin B12 Level 1273 pg/mL (247-911) Serum Folate 11.85 ng/ml (3.2-20.0) Test 09/03/16 10:20 Fibrinogen 402 mg/dL (200-440) Iron Level 48 ug/dL (65-175) Total Iron Binding Capacity 160 ug/dL (250-450) Iron Saturation 30 % (15-34) Ferritin 347 ng/mL (26-388) Thyroid Stimulating Hormone (TSH) 0.332 uIU/mL (0.358-3.74) Laboratory Tests Test 09/03/16 03:15 09/03/16 10:20 White Blood Count 14.1 x10^3/uL (4.0-11.0) Red Blood Count 3.25 x10^6/uL (4.30-5.70) Hemoglobin 11.8 g/dL (13.0-17.5) Hematocrit 34.1 % (39.0-53.0) Mean Corpuscular Volume 105 fL (79-100) Mean Corpuscular Hemoglobin 36 pg (25-35) Mean Corpuscular Hemoglobin Concent 35 g/dL (31-37) Red Cell Distribution Width 15.3 % (11.5-14.5) Platelet Count 39 x10^3/uL (140-400) Neutrophils (%) (Auto) 92 % (31-73) Lymphocytes (%) (Auto) 2 % (24-48) Monocytes (%) (Auto) 6 % (0-9) Eosinophils (%) (Auto) 0 % (0-3) Basophils (%) (Auto) 0 % (0-3) Neutrophils # (Auto) 12.9 x10^3uL (1.8-7.7) Lymphocytes # (Auto) 0.3 x10^3/uL (1.0-4.8) Monocytes # (Auto) 0.8 x10^3/uL (0.0-1.1) Eosinophils # (Auto) 0.0 x10^3/uL (0.0-0.7) Basophils # (Auto) 0.0 x10^3/uL (0.0-0.2) Sodium Level 136 mmol/L (136-145) Potassium Level 4.5 mmol/L (3.5-5.1) Chloride Level 106 mmol/L (98-107) Carbon Dioxide Level 24 mmol/L (21-32) Anion Gap 6 (6-14) Blood Urea Nitrogen 20 mg/dL (8-26) Creatinine 1.1 mg/dL (0.7-1.3) Estimated GFR (Cockcroft-Gault) 66.4 Glucose Level 199 mg/dL (70-99) Calcium Level 7.8 mg/dL (8.5-10.1) Magnesium Level 2.1 mg/dL (1.8-2.4) Fibrinogen 402 mg/dL (200-440) Iron Level 48 ug/dL (65-175) Total Iron Binding Capacity 160 ug/dL (250-450) Iron Saturation 30 % (15-34) Ferritin 347 ng/mL (26-388) Thyroid Stimulating Hormone (TSH) 0.332 uIU/mL (0.358-3.74) Microbiology 09/02/16 Blood Culture - Preliminary, Resulted NO GROWTH AFTER 1 DAY 09/02/16 Anaerobic/Aerobic Culture, Resulted Pending 09/02/16 Anaerobic Culture Result 1 (ERNESTO), Resulted Pending 09/02/16 Aerobic Culture - Preliminary, Resulted 09/02/16 Aerobic Culture Result 1 (ERNESTO) - Preliminary, Resulted Medications Current Medications Albuterol/ Ipratropium (Duoneb) 3 ml 1X ONCE NEB Last administered on 13:42; Start 09/01/16 at 12:45; Stop 09/01/16 at 12:46; Status DC Aspirin (Ecotrin) 325 mg 1X ONCE PO Last administered on 09/01/16 13:24; Start 09/01/16 at 12:45; Stop 09/01/16 at 12:46; Status DC Ondansetron HCl (Zofran) 4 mg 1X ONCE IV Last administered on 09/01/16 13:23 ; Start 09/01/16 at 12:45; Stop 09/01/16 at 12:46; Status DC Sodium Chloride 1,000 ml @ 1,000 mls/hr 1X ONCE IV Last administered on 13:23; Start 09/01/16 at 12:45; Stop 09/01/16 at 13:44; Status DC Ondansetron HCl (Zofran) 4 mg PRN Q8HRS PRN IV NAUSEA/VOMITING Last administered on 09/01/16 17:51; Start 09/01/16 at 13:45; Stop 09/02/16 at 13:44 ; Status DC Fentanyl Citrate (Fentanyl 2ml Vial) 50 mcg PRN Q2HR PRN IV PAIN; Start at 13:45; Stop 09/02/16 at 13:44; Status DC Enoxaparin Sodium (Lovenox 80mg Syringe) 70 mg 1X ONCE SQ Last administered on 09/01/16 15:04; Start 09/01/16 at 14:00; Stop 09/01/16 at 14:01; Status DC Heparin Sodium (Porcine) (Heparin Sodium) 4,000 unit 1X ONCE IV Last administered on 09/01/16 15:06; Start 09/01/16 at 14:30; Stop 09/01/16 at 15:39 ; Status DC Heparin Sodium/ Dextrose 500 ml @ 0 mls/hr CONT PRN IV SEE I/O RECORD Last administered on 09/01/16 15:05; Start 09/01/16 at 14:30; Stop 09/01/16 at 15:39 ; Status DC Heparin Sodium (Porcine) (Heparin Sodium) 1,900 unit PRN Q6HRS PRN IV FOR UFH LEVEL LESS THAN 0.2; Start 09/01/16 at 14:30; Stop 09/01/16 at 15:39; Status DC Sodium Chloride 1,000 ml @ 75 mls/hr [id number] IV Last administered on 16:54; Start 09/01/16 at 15:35; Stop 09/02/16 at 19:23; Status DC Magnesium Sulfate/ Dextrose 50 ml @ 25 mls/hr 1X ONCE IV Last administered on 09/01/16 16:53; Start 09/01/16 at 16:00; Stop 09/01/16 at 17:59; Status DC Hydralazine HCl (Apresoline) 10 mg PRN Q4HRS PRN IVP ELEVATED BP, SEE COMMENTS ; Start 09/01/16 at 16:30 Metoprolol Tartrate (Lopressor) 25 mg BID PO Last administered on 09/02/16 21: 03; Start 09/01/16 at 16:30 Acetaminophen (Tylenol) 650 mg PRN Q6HRS PRN PO FEVER Last administered on 09/02 03:24; Start 09/01/16 at 16:45 Phytonadione 10 mg/Sodium Chloride 51 ml @ 102 mls/hr 1X ONCE IV Last administered on 09/01/16 20:23; Start 09/01/16 at 18:30; Stop 09/01/16 at 18:59 ; Status DC Piperacillin Sod/ Tazobactam Sod 3.375 gm/Sodium Chloride 50 ml @ 100 mls/hr Q6HRS IV Last administered on 09/03/16 06:10; Start 09/02/16 at 12:00 Sodium Chloride 1,000 ml @ 125 mls/hr Q8H IV Last administered on 09/03/16 02 :15; Start 09/02/16 at 10:45 Lidocaine HCl 20 ml STK-MED ONCE .ROUTE ; Start 09/02/16 at 11:26; Stop at 11:27; Status DC Heparin Sodium/ Sodium Chloride 1,000 ml @ As Directed STK-MED ONCE .ROUTE ; Start 09/02/16 at 11:26; Stop 09/02/16 at 11:27; Status DC Iohexol (Omnipaque 300 Mg/ml) 100 ml STK-MED ONCE .ROUTE ; Start 09/02/16 at 11: 27; Stop 09/02/16 at 11:28; Status DC Propofol 20 ml @ As Directed STK-MED ONCE IV ; Start 09/02/16 at 12:40; Stop at 12:41; Status DC Lidocaine HCl (Lidocaine Pf 2% Vial) 5 ml STK-MED ONCE .ROUTE ; Start 09/02/16 at 12:40; Stop 09/02/16 at 12:41; Status DC Ondansetron HCl (Zofran) 4 mg PRN Q6HRS PRN IV NAUSEA/VOMITING; Start 09/02/16 at 13:15; Stop 09/03/16 at 13:14; Status DC Fentanyl Citrate (Fentanyl 2ml Vial) 25 mcg PRN Q5MIN PRN IV MILD PAIN; Start 09/02/16 at 13:15; Stop 09/03/16 at 13:14; Status DC Fentanyl Citrate (Fentanyl 2ml Vial) 50 mcg PRN Q5MIN PRN IV MODERATE PAIN; Start 09/02/16 at 13:15; Stop 09/03/16 at 13:14; Status DC Morphine Sulfate 1 mg PRN Q10MIN PRN IV SEVERE PAIN; Start 09/02/16 at 13:15; Stop 09/03/16 at 13:14; Status DC Ringer's Solution 1,000 ml @ 30 mls/hr Q24H IV Last administered on 09/02/16t 13:06; Start 09/02/16 at 13:05; Stop 09/03/16 at 01:04; Status DC Lidocaine HCl 2 ml PRN 1X PRN ID PRIOR TO IV START; Start 09/02/16 at 13:15; Stop 09/03/16 at 13:14; Status DC Hydromorphone HCl (Dilaudid) 0.5 mg PRN Q10MIN PRN IV SEV PAIN, Second choice; Start 09/02/16 at 13:15; Stop 09/03/16 at 13:14; Status DC Prochlorperazine Edisylate (Compazine) 5 mg PACU PRN PRN IV NAUSEA, MRX1 Last administered on 09/02/16 14:26; Start 09/02/16 at 13:15; Stop 09/03/16 at 13:14 ; Status DC Fentanyl Citrate (Fentanyl 2ml Vial) 100 mcg STK-MED ONCE .ROUTE ; Start at 13:15; Stop 09/02/16 at 13:16; Status DC Prochlorperazine Maleate (Compazine) 5 mg 1X ONCE PO ; Start 09/02/16 at 14:30 ; Stop 09/02/16 at 14:31; Status DC Prochlorperazine Edisylate (Compazine) 5 mg PACU PRN PRN IV NAUSEA; Start 09/02 at 14:30 Magnesium Sulfate/ Dextrose 50 ml @ 25 mls/hr 1X ONCE IV Last administered on 09/02/16 18:25; Start 09/02/16 at 18:00; Stop 09/02/16 at 19:59; Status DC Lorazepam (Ativan) 1 mg 1X ONCE PO ; Start 09/03/16 at 12:00; Stop 09/03/16 at 12:01; Status DC Azathioprine (Imuran) 150 mg DAILY PO ; Start 09/03/16 at 13:00 Gadobutrol (Gadavist) 8 mmol 1X ONCE IV Last administered on 09/03/16 12:59; Start 09/03/16 at 12:30; Stop 09/03/16 at 12:31; Status DC Active Scripts Active Multivitamins (Multivitamin) 1 Each Tablet 1 Tab PO DAILY [Propranolol Hcl] 10 MG Tablet 10 Mg PO BID Protonix (Pantoprazole Sodium) 40 Mg Tablet 40 Mg PO DAILYAC Reported Spironolactone 25 Mg Tablet 1 Tab PO DAILY Azathioprine 50 Mg Tablet 3 Tab PO DAILY Levothyroxine Sodium 75 Mcg Tablet 1 Tab PO DAILY Vitals/I & O Vital Sign - Last 24 Hours 09/02/16 09/02/16 09/02/16 09/02/16 13:50 13:50 14:05 14:20 Temp 100.6 100.6 100.6 100.6 100.6 100.6 Pulse 62 70 67 Resp 15 15 15 B/P (MAP) 81/48 106/53 105/58 Pulse Ox 100 98 97 O2 Delivery Room Air Simple Mask Room Air Room Air O2 Flow Rate 10 09/02/16 09/02/16 09/02/16 09/02/16 15:00 15:15 15:30 15:45 Temp 98.4 98.4 Pulse 72 66 63 58 Resp 18 B/P (MAP) 115/60 (78) 100/51 (67) 100/47 (64) 96/50 (65) Pulse Ox 95 O2 Delivery Room Air 09/02/16 09/02/16 09/02/16 09/02/16 16:00 16:15 16:45 17:45 Pulse 59 60 62 60 B/P (MAP) 95/64 (74) 119/61 (80) 121/67 (85) 113/67 (82) 09/02/16 09/02/16 09/02/16 09/02/16 19:41 20:07 21:03 23:18 Temp 97.9 97.7 97.9 97.7 Pulse 58 58 57 Resp 20 20 B/P (MAP) 110/64 (79) 110/64 94/67 (76) Pulse Ox 94 95 O2 Delivery Room Air Room Air Room Air O2 Flow Rate 10.0 09/03/16 09/03/16 09/03/16 09/03/16 03:00 06:45 08:00 09:00 Temp 97.5 97.8 97.5 97.8 Pulse 49 53 48 Resp 18 24 B/P (MAP) 104/56 (72) 138/70 (92) Pulse Ox 98 98 O2 Delivery Room Air Room Air Room Air 09/03/16 11:00 Temp 97.9 97.9 Pulse 66 Resp 20 B/P (MAP) 140/72 (94) Pulse Ox 98 O2 Delivery Room Air Intake and Output 09/02/16 09/02/16 09/03/16 15:00 23:00 07:00 Intake Total 600 ml 240 ml Output Total 625 ml Balance 600 ml -625 ml 240 ml RAPHAEL MOORE MD Sep 03, 2016 13:44
[2016-09-03] MEDS: azaTHIOprine 50 MG TABLET PO SCH (13:56)
--- NOTE | 2016-09-03 14:17 | RAD ---
MRI of the abdomen without and with contrast 09/03/2016 Clinical history: Hyperechoic mass seen involving the right lobe of the liver on ultrasound. MRI was recommended for further evaluation. Technique: Unenhanced fat saturated T2 weighted axial and coronal, T2-weighted axial and coronal and in and out of phase T1-weighted axial images of the abdomen were obtained. After the intravenous administration of 8 cc of Gadavist, enhanced fat saturated dynamic T1-weighted axial images of the abdomen were obtained. 5 mm delayed fat saturated T1-weighted axial and coronal and 7 mm delayed fat saturated T1-weighted axial images of the abdomen were obtained. Findings: Comparison is made to the patient's ultrasound of the right upper quadrant of the abdomen dated 09/01/2016. The liver is small with a nodular contour suggestive of cirrhosis. It measures 14 cm in length. Within the right lobe of the liver an oval-shaped predominantly hyperintense lesion is seen on the T2-weighted images which measures 2.4 cm in greatest diameter. This corresponds to the abnormality seen on ultrasound. On the postcontrast images it demonstrates peripheral enhancement and gradually fills in with contrast on the delayed images to some degree. Its MRI and ultrasound imaging characteristics are consistent most likely with a hemangioma. No additional abnormality of the liver is seen. The spleen is mildly enlarged measuring 14 cm in length. The pancreas, adrenal glands and kidneys are within normal limits. The gallbladder is well-distended. The abdominal aorta tapers normally. Impression: 2.4 cm probable hemangioma is seen involving the right lobe of the liver which corresponds to the patient's ultrasound abnormality.
[2016-09-03 15:00] VITALS: BP 140/76
--- NOTE | 2016-09-03 15:25 | PDOC ---
CARDIO Progress Notes Date and Time Date of Service 09/03/2016 Time of Evaluation 1500 Subjective Subjective: No Chest Pain, No shortness of breath, No Palpitations, No Dizziness Vitals Vitals Vital Signs Date Time Temp Pulse Resp B/P (MAP) Pulse Ox O2 Delivery O2 Flow Rate FiO2 09/03/16 11:00 97.9 66 20 140/72 (94) 98 Room Air 97.9 09/02/16 20:07 10.0 Weight Weight [ ] Input and Output Intake and Output Intake and Output 09/03/16 07:00 Intake Total 840 ml Output Total 625 ml Balance 215 ml Intake Oral 240 ml IV Total 600 ml Output Urine Total 625 ml # Voids 2 Laboratory Labs Laboratory Tests Test 09/03/16 03:15 09/03/16 10:20 White Blood Count 14.1 x10^3/uL (4.0-11.0) Red Blood Count 3.25 x10^6/uL (4.30-5.70) Hemoglobin 11.8 g/dL (13.0-17.5) Hematocrit 34.1 % (39.0-53.0) Mean Corpuscular Volume 105 fL (79-100) Mean Corpuscular Hemoglobin 36 pg (25-35) Mean Corpuscular Hemoglobin Concent 35 g/dL (31-37) Red Cell Distribution Width 15.3 % (11.5-14.5) Platelet Count 39 x10^3/uL (140-400) Neutrophils (%) (Auto) 92 % (31-73) Lymphocytes (%) (Auto) 2 % (24-48) Monocytes (%) (Auto) 6 % (0-9) Eosinophils (%) (Auto) 0 % (0-3) Basophils (%) (Auto) 0 % (0-3) Neutrophils # (Auto) 12.9 x10^3uL (1.8-7.7) Lymphocytes # (Auto) 0.3 x10^3/uL (1.0-4.8) Monocytes # (Auto) 0.8 x10^3/uL (0.0-1.1) Eosinophils # (Auto) 0.0 x10^3/uL (0.0-0.7) Basophils # (Auto) 0.0 x10^3/uL (0.0-0.2) Sodium Level 136 mmol/L (136-145) Potassium Level 4.5 mmol/L (3.5-5.1) Chloride Level 106 mmol/L (98-107) Carbon Dioxide Level 24 mmol/L (21-32) Anion Gap 6 (6-14) Blood Urea Nitrogen 20 mg/dL (8-26) Creatinine 1.1 mg/dL (0.7-1.3) Estimated GFR (Cockcroft-Gault) 66.4 Glucose Level 199 mg/dL (70-99) Calcium Level 7.8 mg/dL (8.5-10.1) Magnesium Level 2.1 mg/dL (1.8-2.4) Fibrinogen 402 mg/dL (200-440) Iron Level 48 ug/dL (65-175) Total Iron Binding Capacity 160 ug/dL (250-450) Iron Saturation 30 % (15-34) Ferritin 347 ng/mL (26-388) Thyroid Stimulating Hormone (TSH) 0.332 uIU/mL (0.358-3.74) Microbiology Micro Microbiology 09/02/16 Blood Culture - Preliminary, Resulted NO GROWTH AFTER 1 DAY 09/02/16 Anaerobic/Aerobic Culture, Resulted Pending 09/02/16 Anaerobic Culture Result 1 (ERNESTO), Resulted Pending 09/02/16 Aerobic Culture - Preliminary, Resulted 09/02/16 Aerobic Culture Result 1 (ERNESTO) - Preliminary, Resulted Physical Exam HEENT: Neck Supple W Full Motion Chest: Symmetric LUNGS: Clear to Auscultation Heart: S1S2, RRR, no gallops, murmurs (2/6 systolic murmur to LLS border) Abdomen: Soft N/T Extremities: No Edema, No Calf Tenderness Neurology: alert, oriented, follow commands Assessment Assessment 1. Presyncope: initially hypotensive likely from dehydration and sepsis. BP now with consistent adequacy. No arrhythmia. 2. Asymptomatic SB: HR recorded lowest at 39. BB started as inpt. This is BB induced. 3. Elevated troponin: peaked at 0.112. EKG SR with nonspecific ST changes with bifascicular block. 4. S/P perineal abscess I & D: POD#1 per gen surgery. 5. Macrocytic anemia with thrombocytopenia: PLT 39. hemonc on board 6. Chronic Immunosuppressant therapy with noted hx of autoimmune hepatitis/ cirrhosis, GI following Recommendations 1. TTE today. Ischemic w/u likely in the form of stress test, will plan tomorrow. 2. Unable to place of antiplatelet therapy. HDL low otherwise lipids are well controlled, not a candidate for statin with significant liver issues 3. Stop metoprolol and note HR response. ACEi to be considered pending BP trend and diagnostic result. 4. Discussed diagnostics with pt and spouse JUDITH LYNN APRN Sep 03, 2016 15:25
[2016-09-03 19:05] VITALS: BP 140/78
[2016-09-03 19:18] LABS: HEP A IGM ABDY Negative (Negative)
[2016-09-03 23:05] VITALS: BP 129/76
[2016-09-04] MEDS: PIPERACILLIN/TAZOBACTAM 3.375 GM in IV NORMAL SALINE 50ML 50 ML IV SCH ×3 (01:23→11:24)
--- NOTE | 2016-09-04 01:33 | CONS ---
DATE OF CONSULTATION: 09/03/2016 REFERRING PROVIDER: Rahul Bonilla M.D. REASON FOR CONSULTATION: Thrombocytopenia. HISTORY OF PRESENT ILLNESS: The patient is a 71-year-old male who was admitted to the hospital recently with near syncope, nausea, vomiting and abnormal EKG. He also was noted to have a perineal abscess, status post incision and drainage, now on IV antibiotics. A cardiac catheterization was planned for today, but has been deferred due to his significant thrombocytopenia. Review of the medical records showed that since 2013, his first labs in the system, his platelet count has been running around 95. Today, it dropped to 39. He has significant neutrophilia with an increased ANC and hemoglobin is 11.8, INR has been elevated at 1.6 without any anticoagulation. He had an abdominal ultrasound completed showing a 2-cm right hepatic lobe lesion of unclear etiology and likely cirrhosis. He does report a history several years ago of esophageal varices, status post banding. He previously drank alcohol very heavily with 8-9 mixed drinks a day for at least 8 years; however, he quit 3 years ago when he experienced significant GI bleeding. Per review of the GI notes as well, he has a history of autoimmune hepatitis, on Imuran, under the management of Dr. Pinto. PAST MEDICAL HISTORY: Hypertension, esophageal varices, autoimmune hepatitis, hypothyroidism, thrombocytopenia. PAST SURGICAL HISTORY: Recent perineal abscess incision and drainage, esophageal banding. FAMILY HISTORY: Dad at the age of 43 from an unknown cause. Mom at the age of 92 from natural causes. He has a brother with diabetes and one other brother and two sisters who are healthy. ALLERGIES: No known drug allergies. CURRENT MEDICATIONS: Compazine, Dilaudid, morphine, fentanyl, Zofran, Zosyn, normal saline, Tylenol, metoprolol, hydralazine. REVIEW OF SYSTEMS: Ten-point review of systems completed and unremarkable. His nausea and vomiting have resolved. He does not have any shortness of breath or chest pain. He has not experienced any epistaxis, gingival bleeding, hematochezia or melena. PHYSICAL EXAMINATION: VITAL SIGNS: Temperature 97.9, pulse 66, respiratory rate 20, blood pressure 140/72, O2 98% on room air. GENERAL: He is alert and oriented and in no distress at this time. HEENT: Extraocular muscles are intact. Sclerae are without icterus. Mucous membranes are moist. CARDIOVASCULAR: Heart is regular in rhythm and rate. LUNGS: Clear to auscultation bilaterally. ABDOMEN: Soft and nontender. EXTREMITIES: No edema. NEUROLOGIC: No focal deficits. IMAGING AND LABORATORY DATA: Pertinent CBC and ultrasound findings as above. B12 and folic acid have been normal. ASSESSMENT AND PLAN: The patient is a 71-year-old male with the following medical problems: 1. Acute on chronic thrombocytopenia. I suspect this at baseline is due to his underlying cirrhosis. I doubt his Imuran is contributing significantly as the remainder of his blood counts were not markedly abnormal. However, his thrombocytopenia is likely worse in this admission with his significant abscess, status post recent drainage, now on Zosyn. His heparin was discontinued. The timing does not fit heparin-induced thrombocytopenia. There is no renal insufficiency, so this is not thrombotic thrombocytopenic purpura. Clinically, he is very stable and there is no evidence of disseminated intravascular coagulation. Hopefully, with treatment of his infection, his platelet count will rise somewhat closer to his baseline. I did order hepatitis panel, iron studies and MRI of the abdomen to further evaluate the thrombocytopenia and 2-cm liver lesion found. 2. Cirrhosis, history of esophageal bleeding, autoimmune hepatitis. GI is following. MRI of abdomen ordered to further evaluate this liver lesion. 3. [id number] myocardial infarction. Heart catheterization on hold until his platelets improved. From a cardiac standpoint, if it is important to restart heparin, at his current level, he should be stable for this. However, would certainly discontinue the heparin if his platelets drop below 30. 4. Perineal abscess, status post incision and drainage. On antibiotics. Thank you for allowing me to participate in his care. I have discussed this information with Cardiology and his nurse. ADDENDUM: Hepatitis panel negative; MRI abdomen revealed a hemangioma. GALE EPSTEIN DO DR: MYKEL/jhoan JOB#: [id number] / [id number] ERNESTO
[2016-09-04] MEDS: IV NORMAL SALINE 1000ML BAG 1,000 ML IV SCH ×2 (02:45→10:45)
[2016-09-04 03:10] VITALS: BP 112/57
[2016-09-04 04:22] LABS: BASO % 0 % (0-3); EOS % 0 % (0-3); HEMATOCRIT 33.7 % (39.0-53.0); HEMOGLOBIN 11.7 g/dL (13.0-17.5); LYMPH # 0.6 x10^3/uL (1.0-4.8); LYMPH % 4 % (24-48); MEAN CORPUSCULAR HEMOGLOBIN 36 pg (25-35); MEAN CORPUSCULAR HGB CONC 35 g/dL (31-37); MEAN CORPUSCULAR VOLUME 104 fL (79-100); MONO % 6 % (0-9); NEUT % 91 % (31-73); PLATELET COUNT 56 x10^3/uL (140-400); RED BLOOD COUNT 3.23 x10^6/uL (4.30-5.70); RED CELL DISTRIBUTION WIDTH 15.8 % (11.5-14.5); WHITE BLOOD COUNT 17.3 x10^3/uL (4.0-11.0)
[2016-09-04 07:00] VITALS: BP 156/74
[2016-09-04] MEDS ORDERED: REGADENOSON 0.4 MG/5 ML DISP.SYRIN. IV ONE (08:45)
--- NOTE | 2016-09-04 09:50 | CARD ---
APPROVED REPORT EXAM: Two-dimensional and M-mode echocardiogram with Doppler and color Doppler. Other Information Quality : Average INDICATION Syncope elevated troponin 2D DIMENSIONS RVDd3.5 (2.9-3.5cm)Left Atrium(2D)4.3 (1.6-4.0cm) IVSd1.7 (0.7-1.1cm)Aortic Root(2D)3.1 (2.0-3.7cm) LVDd5.1 (3.9-5.9cm)LVOT Diameter2.3 (1.8-2.4cm) PWd1.3 (0.7-1.1cm)LVDs2.8 (2.5-4.0cm) FS (%) 44.4 %SV92.5 ml LVEF(%)75.4 (>50%) Aortic Valve AoV Peak Kulwant.166.2cm/sAoV VTI37.8cm AO Peak GR.11.1mmHgLVOT Peak Kulwant.164.7cm/s LVOT VTI 33.07cmAO Mean GR.7mmHg HEENA (VMAX)4.78ug7SZS (VTI)3.66cm2 Mitral Valve MV E Jfboimlv59.4cm/sMV DECEL [id number] MV A Wrcanxjj10.5cm/sMV E Mean Gr.2mmHg MV IFF00liA/A Ratio0.7 MV A [id number] (PHT)2.93cm2 TDI E/Lateral E'6.9E/Medial E'7.9 Pulmonary Valve PV Peak Xlworaym311.7cm/sPV Peak Grad.7mmHg RVOT VTI25.2cm Tricuspid Valve TR P. Ioblvlto926pg/sTR Peak Gr.28mmHg Pulmonary Vein S1 Agidllme30.5cm/sD2 Ioslmkcf10.3cm/s LEFT VENTRICLE The left ventricle is normal size. There is mild concentric left ventricular hypertrophy. The left ve ntricular systolic function is normal and the ejection fraction is within normal range. EF 65% There is normal LV segmental wall motion. Transmitral Doppler flow pattern is Grade I-abnormal relaxation p attern. RIGHT VENTRICLE The right ventricle is normal size. There is normal right ventricular wall thickness. The right ventr icular systolic function is normal. ATRIA The left atrium is mildly dilated. The right atrium size is normal. The interatrial septum is intact with no evidence for an atrial septal defect or patent foramen ovale as noted on 2-D or Doppler imagi ng. AORTIC VALVE The aortic valve is normal in structure and function. Doppler and Color Flow revealed no significant aortic regurgitation. There is no significant aortic valvular stenosis. There is no aortic valvular v egetation. MITRAL VALVE The mitral valve is normal in structure and function. There is no mitral valve stenosis. Doppler and Color Flow revealed trace to mild mitral regurgitation. TRICUSPID VALVE The tricuspid valve is normal in structure and function. Doppler and Color Flow revealed trace to mil d tricuspid regurgitation. The PA pressure was estimated at 30 mmHg. There is no tricuspid valve sten osis. PULMONIC VALVE Doppler and Color Flow revealed no pulmonic valvular regurgitation. There is no pulmonic valvular clarisse nosis. GREAT VESSELS The aortic root is normal in size. Normal pulmonary venous flow (Doppler). The IVC is normal in size and collapses >50% with inspiration. PERICARDIAL EFFUSION There is no pleural effusion. There is no evidence of significant pericardial effusion. Critical Notification Critical Value: No <Conclusion> There is mild concentric left ventricular hypertrophy. The left ventricular systolic function is normal and the ejection fraction is within normal range. EF 65% There is normal LV segmental wall motion.
[2016-09-04 11:21] VITALS: BP 121/74
[2016-09-04] MEDS: azaTHIOprine 50 MG TABLET PO SCH (11:22)
--- NOTE | 2016-09-04 12:02 | PDOC ---
Subjective: Subjective: [place] a little "shaky" during first part of stress test, better now. Objective: Objective: D/w RN - stress test today. Vital Signs: Vital Signs Date Time Temp Pulse Resp B/P (MAP) Pulse Ox O2 Delivery O2 Flow Rate FiO2 09/04/16 11:21 98.0 57 20 121/74 (90) 98 Room Air 98.0 09/03/16 21:15 10.0 Labs: Laboratory Tests Test 09/04/16 03:20 White Blood Count 17.3 x10^3/uL Red Blood Count 3.23 x10^6/uL Hemoglobin 11.7 g/dL Hematocrit 33.7 % Mean Corpuscular Volume 104 fL Mean Corpuscular Hemoglobin 36 pg Mean Corpuscular Hemoglobin Concent 35 g/dL Red Cell Distribution Width 15.8 % Platelet Count 56 x10^3/uL Neutrophils (%) (Auto) 91 % Lymphocytes (%) (Auto) 4 % Monocytes (%) (Auto) 6 % Eosinophils (%) (Auto) 0 % Basophils (%) (Auto) 0 % Neutrophils # (Auto) 15.7 x10^3uL Lymphocytes # (Auto) 0.6 x10^3/uL Monocytes # (Auto) 1.0 x10^3/uL Eosinophils # (Auto) 0.0 x10^3/uL Basophils # (Auto) 0.0 x10^3/uL Imaging: MRI Abd 09/03/16 Impression: 2.4 cm probable hemangioma is seen involving the right lobe of the liver which corresponds to the patient's ultrasound abnormality. Echocardiogram 09/04/16 <Conclusion> There is mild concentric left ventricular hypertrophy. The left ventricular systolic function is normal and the ejection fraction is within normal range. EF 65% There is normal LV segmental wall motion. MPI 09/04/16 IN PROCESS PE: GEN: NAD LUNGS: clear HEART: siva ABD: S/ND/NT NEURO/PSYCH: A & O 3 A/P: Near syncope, abnormal EKG, elevated troponin -per cardiology, stress test today Autoimmune hepatitis, cirrhosis, thrombocytopenia, anemia -follows w/ Dr. Pinto, on spironolactone (at home) and Imuran (home, here) -h/o esophageal varices/banding 2013 -hepatic hemangioma on MRI -heme/onc following S/p I&D perineal abscess -on atbx -- Stress test today, await this. RUTH CALDERÓN Sep 04, 2016 12:02
--- NOTE | 2016-09-04 12:31 | PDOC ---
CARDIO Progress Notes Date and Time Date of Service 09/04/2016 Time of Evaluation 1200 Subjective Subjective: No Chest Pain, No shortness of breath, No Palpitations, No Dizziness Vitals Vitals Vital Signs Date Time Temp Pulse Resp B/P (MAP) Pulse Ox O2 Delivery O2 Flow Rate FiO2 09/04/16 11:21 98.0 57 20 121/74 (90) 98 Room Air 98.0 09/03/16 21:15 10.0 Weight Weight [ ] Input and Output Intake and Output Intake and Output 09/04/16 07:00 Intake Total 1300 ml Output Total 1675 ml Balance -375 ml Intake Oral 1300 ml Output Urine Total 1675 ml # Voids 4 # Bowel Movements 1 Laboratory Labs Laboratory Tests Test 09/04/16 03:20 White Blood Count 17.3 x10^3/uL (4.0-11.0) Red Blood Count 3.23 x10^6/uL (4.30-5.70) Hemoglobin 11.7 g/dL (13.0-17.5) Hematocrit 33.7 % (39.0-53.0) Mean Corpuscular Volume 104 fL (79-100) Mean Corpuscular Hemoglobin 36 pg (25-35) Mean Corpuscular Hemoglobin Concent 35 g/dL (31-37) Red Cell Distribution Width 15.8 % (11.5-14.5) Platelet Count 56 x10^3/uL (140-400) Neutrophils (%) (Auto) 91 % (31-73) Lymphocytes (%) (Auto) 4 % (24-48) Monocytes (%) (Auto) 6 % (0-9) Eosinophils (%) (Auto) 0 % (0-3) Basophils (%) (Auto) 0 % (0-3) Neutrophils # (Auto) 15.7 x10^3uL (1.8-7.7) Lymphocytes # (Auto) 0.6 x10^3/uL (1.0-4.8) Monocytes # (Auto) 1.0 x10^3/uL (0.0-1.1) Eosinophils # (Auto) 0.0 x10^3/uL (0.0-0.7) Basophils # (Auto) 0.0 x10^3/uL (0.0-0.2) Microbiology Micro Microbiology 09/02/16 Blood Culture - Preliminary, Resulted NO GROWTH AFTER 2 DAYS 09/02/16 Anaerobic/Aerobic Culture - Preliminary, Resulted 09/02/16 Anaerobic Culture Result 1 (ERNESTO) - Preliminary, Resulted 09/02/16 Aerobic Culture - Final, Resulted 09/02/16 Aerobic Culture Result 1 (ERNESTO) - Final, Resulted 09/02/16 Antimicrobic Susceptibility - Final, Resulted Physical Exam HEENT: Neck Supple W Full Motion Chest: Symmetric LUNGS: Clear to Auscultation Heart: S1S2, RRR, no gallops, murmurs (2/6 systolic murmur to LLS border) Abdomen: Soft N/T Extremities: No Edema, No Calf Tenderness Neurology: alert, oriented, follow commands Assessment Assessment 1. Presyncope: resolved, noncardiac 2. Asymptomatic SB: BB induced. None further after discontinuation of BB. 3. Elevated troponin: peaked at 0.112. Multifactorial particularly infectious process. 4. S/P perineal abscess I & D: POD#2 per gen surgery. 5. Macrocytic anemia with thrombocytopenia: PLT 56. hemonc on board 6. Chronic Immunosuppressant therapy with noted hx of autoimmune hepatitis/ cirrhosis, GI following Recommendations 1. TTE with normal wall motion and EF and no significant valvular disease. MPI completion today, no further testing if unremarkable. 2. Unable to place on any antiplatelet therapy. HDL low otherwise lipids are well controlled, not a candidate for statin with significant liver issues 3. ACEi/ARB if BP becomes labile. Avoid AV duc blocking agents. JUDITH LYNN APRN Sep 04, 2016 12:31
[2016-09-04] MEDS ORDERED: VANCOMYCIN 1 GM in IV NORMAL SALINE 250ML 250 ML IV SCH (12:45)
[2016-09-04] MEDS ORDERED: ONDANSETRON PF 4 MG/2 ML VIAL. IV PRN (12:45)
[2016-09-04] MEDS ORDERED: IBUPROFEN 400 MG TABLET. PO PRN (12:45)
--- NOTE | 2016-09-04 12:45 | PDOC ---
PROGRESS NOTES Chief Complaint Chief Complaint MRSA perineal abscess s/p I and D CP with elevated trop - MPI pending Diarrhea, /dizziness: improved. Autoimmune hepatitis, HX etohism Thrombocytopenia, stable History of Present Illness History of Present Illness Groin inspected, better! (less induration and redness) WBC higher today at 17 no fevers Cultures perineum show MRSA resistant to PCN Pt is on zosyn For second part MPI today PLAN: Change to IV vanc dc zosyn Ceftaroline PO on dc (based on sensitivities) MPI second part today Dw cards and RN CBC again bryan, BC if febrile Vitals Vitals Vital Signs Date Time Temp Pulse Resp B/P (MAP) Pulse Ox O2 Delivery O2 Flow Rate FiO2 09/04/16 11:21 98.0 57 20 121/74 (90) 98 Room Air 98.0 09/03/16 21:15 10.0 Physical Exam General: Alert, Oriented X3, Cooperative, No acute distress Heart: Regular rate, Normal S1, Normal S2 Lungs: Clear Abdomen: Normal bowel sounds, Soft, Other (perineal abscess. ) Extremities: No clubbing, No cyanosis Skin: Other (right perineal extending to groin with erythema, induration, central fluctuance, very small opening with bloody/purulent drainage, midl tenderness to scrotume, no induration noted to scrotum, small pustule in right groin seperate from abscess area) Labs LABS Laboratory Tests Test 09/04/16 03:20 White Blood Count 17.3 x10^3/uL (4.0-11.0) Red Blood Count 3.23 x10^6/uL (4.30-5.70) Hemoglobin 11.7 g/dL (13.0-17.5) Hematocrit 33.7 % (39.0-53.0) Mean Corpuscular Volume 104 fL (79-100) Mean Corpuscular Hemoglobin 36 pg (25-35) Mean Corpuscular Hemoglobin Concent 35 g/dL (31-37) Red Cell Distribution Width 15.8 % (11.5-14.5) Platelet Count 56 x10^3/uL (140-400) Neutrophils (%) (Auto) 91 % (31-73) Lymphocytes (%) (Auto) 4 % (24-48) Monocytes (%) (Auto) 6 % (0-9) Eosinophils (%) (Auto) 0 % (0-3) Basophils (%) (Auto) 0 % (0-3) Neutrophils # (Auto) 15.7 x10^3uL (1.8-7.7) Lymphocytes # (Auto) 0.6 x10^3/uL (1.0-4.8) Monocytes # (Auto) 1.0 x10^3/uL (0.0-1.1) Eosinophils # (Auto) 0.0 x10^3/uL (0.0-0.7) Basophils # (Auto) 0.0 x10^3/uL (0.0-0.2) Review of Systems Review of Systems denies all 14 pt Assessment and Plan Assessmemt and Plan Problems Medical Problems: (1) Nausea & vomiting Status: Acute (2) Near syncope Status: Acute (3) NSTEMI (non-ST elevated myocardial infarction) Status: Acute Problems: Comment Review of Relevant I have reviewed the following items pina (where applicable) has been applied. Labs Laboratory Tests Test 09/03/16 03:15 09/03/16 10:20 09/04/16 03:20 White Blood Count 14.1 x10^3/uL (4.0-11.0) 17.3 x10^3/uL (4.0-11.0) Red Blood Count 3.25 x10^6/uL (4.30-5.70) 3.23 x10^6/uL (4.30-5.70) Hemoglobin 11.8 g/dL (13.0-17.5) 11.7 g/dL (13.0-17.5) Hematocrit 34.1 % (39.0-53.0) 33.7 % (39.0-53.0) Mean Corpuscular Volume 105 fL (79-100) 104 fL (79-100) Mean Corpuscular Hemoglobin 36 pg (25-35) 36 pg (25-35) Mean Corpuscular Hemoglobin Concent 35 g/dL (31-37) 35 g/dL (31-37) Red Cell Distribution Width 15.3 % (11.5-14.5) 15.8 % (11.5-14.5) Platelet Count 39 x10^3/uL (140-400) 56 x10^3/uL (140-400) Neutrophils (%) (Auto) 92 % (31-73) 91 % (31-73) Lymphocytes (%) (Auto) 2 % (24-48) 4 % (24-48) Monocytes (%) (Auto) 6 % (0-9) 6 % (0-9) Eosinophils (%) (Auto) 0 % (0-3) 0 % (0-3) Basophils (%) (Auto) 0 % (0-3) 0 % (0-3) Neutrophils # (Auto) 12.9 x10^3uL (1.8-7.7) 15.7 x10^3uL (1.8-7.7) Lymphocytes # (Auto) 0.3 x10^3/uL (1.0-4.8) 0.6 x10^3/uL (1.0-4.8) Monocytes # (Auto) 0.8 x10^3/uL (0.0-1.1) 1.0 x10^3/uL (0.0-1.1) Eosinophils # (Auto) 0.0 x10^3/uL (0.0-0.7) 0.0 x10^3/uL (0.0-0.7) Basophils # (Auto) 0.0 x10^3/uL (0.0-0.2) 0.0 x10^3/uL (0.0-0.2) Sodium Level 136 mmol/L (136-145) Potassium Level 4.5 mmol/L (3.5-5.1) Chloride Level 106 mmol/L (98-107) Carbon Dioxide Level 24 mmol/L (21-32) Anion Gap 6 (6-14) Blood Urea Nitrogen 20 mg/dL (8-26) Creatinine 1.1 mg/dL (0.7-1.3) Estimated GFR (Cockcroft-Gault) 66.4 Glucose Level 199 mg/dL (70-99) Calcium Level 7.8 mg/dL (8.5-10.1) Magnesium Level 2.1 mg/dL (1.8-2.4) Fibrinogen 402 mg/dL (200-440) Iron Level 48 ug/dL (65-175) Total Iron Binding Capacity 160 ug/dL (250-450) Iron Saturation 30 % (15-34) Ferritin 347 ng/mL (26-388) Thyroid Stimulating Hormone (TSH) 0.332 uIU/mL (0.358-3.74) Hepatitis A IgM Antibody Negative (Negative) Hepatitis B Surface Antigen Negative (Negative) Hepatitis B Core IgM Antibody Negative (Negative) Hepatitis C Antibody 0.2 s/co ratio (0.0-0.9) Laboratory Tests Test 09/04/16 03:20 White Blood Count 17.3 x10^3/uL (4.0-11.0) Red Blood Count 3.23 x10^6/uL (4.30-5.70) Hemoglobin 11.7 g/dL (13.0-17.5) Hematocrit 33.7 % (39.0-53.0) Mean Corpuscular Volume 104 fL (79-100) Mean Corpuscular Hemoglobin 36 pg (25-35) Mean Corpuscular Hemoglobin Concent 35 g/dL (31-37) Red Cell Distribution Width 15.8 % (11.5-14.5) Platelet Count 56 x10^3/uL (140-400) Neutrophils (%) (Auto) 91 % (31-73) Lymphocytes (%) (Auto) 4 % (24-48) Monocytes (%) (Auto) 6 % (0-9) Eosinophils (%) (Auto) 0 % (0-3) Basophils (%) (Auto) 0 % (0-3) Neutrophils # (Auto) 15.7 x10^3uL (1.8-7.7) Lymphocytes # (Auto) 0.6 x10^3/uL (1.0-4.8) Monocytes # (Auto) 1.0 x10^3/uL (0.0-1.1) Eosinophils # (Auto) 0.0 x10^3/uL (0.0-0.7) Basophils # (Auto) 0.0 x10^3/uL (0.0-0.2) Microbiology 09/02/16 Blood Culture - Preliminary, Resulted NO GROWTH AFTER 2 DAYS 09/02/16 Anaerobic/Aerobic Culture - Preliminary, Resulted 09/02/16 Anaerobic Culture Result 1 (ERNESTO) - Preliminary, Resulted 09/02/16 Aerobic Culture - Final, Resulted 09/02/16 Aerobic Culture Result 1 (ERNESTO) - Final, Resulted 09/02/16 Antimicrobic Susceptibility - Final, Resulted Medications Current Medications Albuterol/ Ipratropium (Duoneb) 3 ml 1X ONCE NEB Last administered on 13:42; Start 09/01/16 at 12:45; Stop 09/01/16 at 12:46; Status DC Aspirin (Ecotrin) 325 mg 1X ONCE PO Last administered on 09/01/16 13:24; Start 09/01/16 at 12:45; Stop 09/01/16 at 12:46; Status DC Ondansetron HCl (Zofran) 4 mg 1X ONCE IV Last administered on 09/01/16 13:23 ; Start 09/01/16 at 12:45; Stop 09/01/16 at 12:46; Status DC Sodium Chloride 1,000 ml @ 1,000 mls/hr 1X ONCE IV Last administered on 13:23; Start 09/01/16 at 12:45; Stop 09/01/16 at 13:44; Status DC Ondansetron HCl (Zofran) 4 mg PRN Q8HRS PRN IV NAUSEA/VOMITING Last administered on 09/01/16 17:51; Start 09/01/16 at 13:45; Stop 09/02/16 at 13:44 ; Status DC Fentanyl Citrate (Fentanyl 2ml Vial) 50 mcg PRN Q2HR PRN IV PAIN; Start at 13:45; Stop 09/02/16 at 13:44; Status DC Enoxaparin Sodium (Lovenox 80mg Syringe) 70 mg 1X ONCE SQ Last administered on 09/01/16 15:04; Start 09/01/16 at 14:00; Stop 09/01/16 at 14:01; Status DC Heparin Sodium (Porcine) (Heparin Sodium) 4,000 unit 1X ONCE IV Last administered on 09/01/16 15:06; Start 09/01/16 at 14:30; Stop 09/01/16 at 15:39 ; Status DC Heparin Sodium/ Dextrose 500 ml @ 0 mls/hr CONT PRN IV SEE I/O RECORD Last administered on 09/01/16 15:05; Start 09/01/16 at 14:30; Stop 09/01/16 at 15:39 ; Status DC Heparin Sodium (Porcine) (Heparin Sodium) 1,900 unit PRN Q6HRS PRN IV FOR UFH LEVEL LESS THAN 0.2; Start 09/01/16 at 14:30; Stop 09/01/16 at 15:39; Status DC Sodium Chloride 1,000 ml @ 75 mls/hr [id number] IV Last administered on 16:54; Start 09/01/16 at 15:35; Stop 09/02/16 at 19:23; Status DC Magnesium Sulfate/ Dextrose 50 ml @ 25 mls/hr 1X ONCE IV Last administered on 09/01/16 16:53; Start 09/01/16 at 16:00; Stop 09/01/16 at 17:59; Status DC Hydralazine HCl (Apresoline) 10 mg PRN Q4HRS PRN IVP ELEVATED BP, SEE COMMENTS ; Start 09/01/16 at 16:30 Metoprolol Tartrate (Lopressor) 25 mg BID PO Last administered on 09/02/16 21: 03; Start 09/01/16 at 16:30; Stop 09/03/16 at 16:15; Status DC Acetaminophen (Tylenol) 650 mg PRN Q6HRS PRN PO FEVER Last administered on 09/02 03:24; Start 09/01/16 at 16:45 Phytonadione 10 mg/Sodium Chloride 51 ml @ 102 mls/hr 1X ONCE IV Last administered on 09/01/16 20:23; Start 09/01/16 at 18:30; Stop 09/01/16 at 18:59 ; Status DC Piperacillin Sod/ Tazobactam Sod 3.375 gm/Sodium Chloride 50 ml @ 100 mls/hr Q6HRS IV Last administered on 09/04/16 11:24; Start 09/02/16 at 12:00 Sodium Chloride 1,000 ml @ 125 mls/hr Q8H IV Last administered on 09/03/16 02 :15; Start 09/02/16 at 10:45 Lidocaine HCl 20 ml STK-MED ONCE .ROUTE ; Start 09/02/16 at 11:26; Stop at 11:27; Status DC Heparin Sodium/ Sodium Chloride 1,000 ml @ As Directed STK-MED ONCE .ROUTE ; Start 09/02/16 at 11:26; Stop 09/02/16 at 11:27; Status DC Iohexol (Omnipaque 300 Mg/ml) 100 ml STK-MED ONCE .ROUTE ; Start 09/02/16 at 11: 27; Stop 09/02/16 at 11:28; Status DC Propofol 20 ml @ As Directed STK-MED ONCE IV ; Start 09/02/16 at 12:40; Stop at 12:41; Status DC Lidocaine HCl (Lidocaine Pf 2% Vial) 5 ml STK-MED ONCE .ROUTE ; Start 09/02/16 at 12:40; Stop 09/02/16 at 12:41; Status DC Ondansetron HCl (Zofran) 4 mg PRN Q6HRS PRN IV NAUSEA/VOMITING; Start 09/02/16 at 13:15; Stop 09/03/16 at 13:14; Status DC Fentanyl Citrate (Fentanyl 2ml Vial) 25 mcg PRN Q5MIN PRN IV MILD PAIN; Start 09/02/16 at 13:15; Stop 09/03/16 at 13:14; Status DC Fentanyl Citrate (Fentanyl 2ml Vial) 50 mcg PRN Q5MIN PRN IV MODERATE PAIN; Start 09/02/16 at 13:15; Stop 09/03/16 at 13:14; Status DC Morphine Sulfate 1 mg PRN Q10MIN PRN IV SEVERE PAIN; Start 09/02/16 at 13:15; Stop 09/03/16 at 13:14; Status DC Ringer's Solution 1,000 ml @ 30 mls/hr Q24H IV Last administered on 09/02/16t 13:06; Start 09/02/16 at 13:05; Stop 09/03/16 at 01:04; Status DC Lidocaine HCl 2 ml PRN 1X PRN ID PRIOR TO IV START; Start 09/02/16 at 13:15; Stop 09/03/16 at 13:14; Status DC Hydromorphone HCl (Dilaudid) 0.5 mg PRN Q10MIN PRN IV SEV PAIN, Second choice; Start 09/02/16 at 13:15; Stop 09/03/16 at 13:14; Status DC Prochlorperazine Edisylate (Compazine) 5 mg PACU PRN PRN IV NAUSEA, MRX1 Last administered on 09/02/16t 14:26; Start 09/02/16 at 13:15; Stop 09/03/16 at 13:14 ; Status DC Fentanyl Citrate (Fentanyl 2ml Vial) 100 mcg STK-MED ONCE .ROUTE ; Start at 13:15; Stop 09/02/16 at 13:16; Status DC Prochlorperazine Maleate (Compazine) 5 mg 1X ONCE PO ; Start 09/02/16 at 14:30 ; Stop 09/02/16 at 14:31; Status DC Prochlorperazine Edisylate (Compazine) 5 mg PACU PRN PRN IV NAUSEA; Start 09/02 at 14:30 Magnesium Sulfate/ Dextrose 50 ml @ 25 mls/hr 1X ONCE IV Last administered on 09/02/16 18:25; Start 09/02/16 at 18:00; Stop 09/02/16 at 19:59; Status DC Lorazepam (Ativan) 1 mg 1X ONCE PO ; Start 09/03/16 at 12:00; Stop 09/03/16 at 12:01; Status DC Azathioprine (Imuran) 150 mg DAILY PO Last administered on 09/04/16 11:22; Start 09/03/16 at 13:00 Gadobutrol (Gadavist) 8 mmol 1X ONCE IV Last administered on 09/03/16 12:59; Start 09/03/16 at 12:30; Stop 09/03/16 at 12:31; Status DC Regadenoson (Lexiscan) 0.4 mg 1X ONCE IV Last administered on 09/04/16 10:09 ; Start 09/04/16 at 08:45; Stop 09/04/16 at 08:47; Status DC Active Scripts Active Multivitamins (Multivitamin) 1 Each Tablet 1 Tab PO DAILY [Propranolol Hcl] 10 MG Tablet 10 Mg PO BID Protonix (Pantoprazole Sodium) 40 Mg Tablet 40 Mg PO DAILYAC Reported Spironolactone 25 Mg Tablet 1 Tab PO DAILY Azathioprine 50 Mg Tablet 3 Tab PO DAILY Levothyroxine Sodium 75 Mcg Tablet 1 Tab PO DAILY Vitals/I & O Vital Sign - Last 24 Hours 09/03/16 09/03/16 09/03/16 09/03/16 15:00 19:05 20:45 21:15 Temp 98.0 97.5 98.0 97.5 Pulse 62 63 Resp 20 16 B/P (MAP) 140/76 (97) 140/78 (98) Pulse Ox 97 98 O2 Delivery Room Air Room Air Room Air Room Air O2 Flow Rate 10.0 10.0 09/03/16 09/04/16 09/04/16 09/04/16 23:05 03:10 07:00 08:00 Temp 97.8 98.3 98.2 97.8 98.3 98.2 Pulse 64 51 56 Resp 14 12 20 B/P (MAP) 129/76 (93) 112/57 (75) 156/74 (101) Pulse Ox 96 96 99 O2 Delivery Room Air Room Air Room Air Room Air 09/04/16 11:21 Temp 98.0 98.0 Pulse 57 Resp 20 B/P (MAP) 121/74 (90) Pulse Ox 98 O2 Delivery Room Air Intake and Output 09/03/16 09/03/16 09/04/16 14:59 22:59 06:59 Intake Total 500 ml 800 ml Output Total 300 ml 1375 ml Balance 200 ml -575 ml BEATA STRONG MD Sep 04, 2016 12:45
[2016-09-04] MEDS ORDERED: VANCOMYCIN 2 GM in IV NORMAL SALINE 500ML BAG 500 ML IV ONE (13:00)
--- NOTE | 2016-09-04 13:06 | PDOC ---
PAIGE HD[facility] [employer]IE[employer] TE[employer] 09/04/16 1306: SURGICAL PROGRESS NOTE Subjective down for stress test nurse reports has changed dressing twice today she reports less indurated and erythematous continue wound care we will follow up in am Vital Signs Vital Signs Date Time Temp Pulse Resp B/P (MAP) Pulse Ox O2 Delivery O2 Flow Rate FiO2 09/04/16 11:21 98.0 57 20 121/74 (90) 98 Room Air 98.0 09/03/16 21:15 10.0 I&O Intake and Output 09/04/16 06:59 Intake Total 1300 ml Output Total 1675 ml Balance -375 ml Intake Oral 1300 ml Output Urine Total 1675 ml # Voids 4 # Bowel Movements 1 Labs Laboratory Tests Test 09/03/16 03:15 09/03/16 10:20 09/04/16 03:20 White Blood Count 14.1 x10^3/uL (4.0-11.0) 17.3 x10^3/uL (4.0-11.0) Red Blood Count 3.25 x10^6/uL (4.30-5.70) 3.23 x10^6/uL (4.30-5.70) Hemoglobin 11.8 g/dL (13.0-17.5) 11.7 g/dL (13.0-17.5) Hematocrit 34.1 % (39.0-53.0) 33.7 % (39.0-53.0) Mean Corpuscular Volume 105 fL (79-100) 104 fL (79-100) Mean Corpuscular Hemoglobin 36 pg (25-35) 36 pg (25-35) Mean Corpuscular Hemoglobin Concent 35 g/dL (31-37) 35 g/dL (31-37) Red Cell Distribution Width 15.3 % (11.5-14.5) 15.8 % (11.5-14.5) Platelet Count 39 x10^3/uL (140-400) 56 x10^3/uL (140-400) Neutrophils (%) (Auto) 92 % (31-73) 91 % (31-73) Lymphocytes (%) (Auto) 2 % (24-48) 4 % (24-48) Monocytes (%) (Auto) 6 % (0-9) 6 % (0-9) Eosinophils (%) (Auto) 0 % (0-3) 0 % (0-3) Basophils (%) (Auto) 0 % (0-3) 0 % (0-3) Neutrophils # (Auto) 12.9 x10^3uL (1.8-7.7) 15.7 x10^3uL (1.8-7.7) Lymphocytes # (Auto) 0.3 x10^3/uL (1.0-4.8) 0.6 x10^3/uL (1.0-4.8) Monocytes # (Auto) 0.8 x10^3/uL (0.0-1.1) 1.0 x10^3/uL (0.0-1.1) Eosinophils # (Auto) 0.0 x10^3/uL (0.0-0.7) 0.0 x10^3/uL (0.0-0.7) Basophils # (Auto) 0.0 x10^3/uL (0.0-0.2) 0.0 x10^3/uL (0.0-0.2) Sodium Level 136 mmol/L (136-145) Potassium Level 4.5 mmol/L (3.5-5.1) Chloride Level 106 mmol/L (98-107) Carbon Dioxide Level 24 mmol/L (21-32) Anion Gap 6 (6-14) Blood Urea Nitrogen 20 mg/dL (8-26) Creatinine 1.1 mg/dL (0.7-1.3) Estimated GFR (Cockcroft-Gault) 66.4 Glucose Level 199 mg/dL (70-99) Calcium Level 7.8 mg/dL (8.5-10.1) Magnesium Level 2.1 mg/dL (1.8-2.4) Fibrinogen 402 mg/dL (200-440) Iron Level 48 ug/dL (65-175) Total Iron Binding Capacity 160 ug/dL (250-450) Iron Saturation 30 % (15-34) Ferritin 347 ng/mL (26-388) Thyroid Stimulating Hormone (TSH) 0.332 uIU/mL (0.358-3.74) Hepatitis A IgM Antibody Negative (Negative) Hepatitis B Surface Antigen Negative (Negative) Hepatitis B Core IgM Antibody Negative (Negative) Hepatitis C Antibody 0.2 s/co ratio (0.0-0.9) Laboratory Tests Test 09/04/16 03:20 White Blood Count 17.3 x10^3/uL (4.0-11.0) Red Blood Count 3.23 x10^6/uL (4.30-5.70) Hemoglobin 11.7 g/dL (13.0-17.5) Hematocrit 33.7 % (39.0-53.0) Mean Corpuscular Volume 104 fL (79-100) Mean Corpuscular Hemoglobin 36 pg (25-35) Mean Corpuscular Hemoglobin Concent 35 g/dL (31-37) Red Cell Distribution Width 15.8 % (11.5-14.5) Platelet Count 56 x10^3/uL (140-400) Neutrophils (%) (Auto) 91 % (31-73) Lymphocytes (%) (Auto) 4 % (24-48) Monocytes (%) (Auto) 6 % (0-9) Eosinophils (%) (Auto) 0 % (0-3) Basophils (%) (Auto) 0 % (0-3) Neutrophils # (Auto) 15.7 x10^3uL (1.8-7.7) Lymphocytes # (Auto) 0.6 x10^3/uL (1.0-4.8) Monocytes # (Auto) 1.0 x10^3/uL (0.0-1.1) Eosinophils # (Auto) 0.0 x10^3/uL (0.0-0.7) Basophils # (Auto) 0.0 x10^3/uL (0.0-0.2) Problem List Problems Medical Problems: (1) Nausea & vomiting Status: Acute (2) Near syncope Status: Acute (3) NSTEMI (non-ST elevated myocardial infarction) Status: Acute Problems: RAPHAEL MOORE MD 09/05/16 1650: SURGICAL PROGRESS NOTE Assessment/Plan Agree Problems: PAIGE HDZ [employer] Sep 04, 2016 13:06 RAPHAEL MOORE MD Sep 05, 2016 16:50
--- NOTE | 2016-09-04 14:28 | RAD ---
APPROVED REPORT Test Type: Pharmacological Stress Nurse/Tech: Salina De La Cruz R.N. Test Indications: Chest pain and elevated troponin. Cardiac History: SEE EMR Medications: SEE EMR Medical History: SEE EMR Resting ECG: SR PAC's Resting Heart Rate: 52 bpm Resting Blood Pressure: 142/77mmHg Pretest Chest Pain: None Nurse/Tech Notes S1S2, lungs CTA, denied chest pain or SOA Consent: The procedure was explained to the patient in lay terms. Informed consent was witnessed. Macario eout was entered into Branch. History and Stress Test performed by Salina De La Cruz R.N. Pharm. Details Pharmacologic stress testing was performed using 0.4mg per 5ml of regadenoson given intravenously ove r 7-10 seconds. Stress Symptoms Slightly SOA. POST EXERCISE Reason for Termination: Infusion complete Max HR: 87 bpm Max Blood Pressure: 149/67mmHg Blood Pressure response to exercise: Normal blood pressure response during stress. Heart Rate response to exercise: Normal Chest Pain: No. Arrhythmia: Yes. PAC's, PVC's ST Change: No. INTERPRETATION Stress EKG Conclusion: Baseline EKG showed sinus rhythm. No ischemic changes at peak stress. No arr hythmias. Imaging Protocol IMAGE PROTOCOL: Rest Tc-99m/stress Tc-99m 1 day Rest: Stress: Viability: Radiopharm.Tc99m [id number] Sestamibi Dose10.9mCi 33.8mCi Duration 15min. 10min. Img Date 09/04/2016 09/04/2016 Inj-Img [id number]. 60min. Rest Admin Site:IV - Left ForearmAdministrator:Liliam Velez, RT (R)(N) Stress Admin Site: IV - Left ForearmAdministrator: LAINEY Garcia, ARRT (R)(N) STRESS DATA End Diast. Vol.137.0mlAv. Heart Rate51.0bpm End Syst. Vol.44.0mlCO Index BSA0.0L/min Myocardial Kwan913.0gEject. Valbzkrm61.0% Stress Rates Pk. Fill Rate1.74EDV/secLVtime Pk. Fill 229.59msec Pk. Empty Rate3.11ESV/secLVtime Pk. Tumfr296.42msec 1/3 Pk. Fill1.06EDV/sec Stress Scores Regional WT2.00Summed WT27.00 Regional WM0.00Summed WM0.00 Study quality was good. Left Ventricular size was Normal at Rest and Stress. Lung uptake was Normal. Left Ventricular ejection fraction is 68%. The rest and stress images show normal perfusion, normal contraction and thickening. LV Perf. Quant 17 Seg. SSS0.00 17 Seg. SRS0.00 17 Seg. SDS0.00 Stress Defect Extent (% LAD)0.00Rest Defect Extent (% LAD)0.00Rev. Defect Extent (% LAD)0.00 Stress Defect Extent (% LCX) 0.00Rest Defect Extent (% LCX)11.30Rev. Defect Extent (% LCX)0.00 Stress Defect Extent (% RCA)0.00Rest Defect Extent (% RCA)0.00Rev. Defect Extent (% RCA)0.00 Stress Defect Extent (% DIONTE)0.00Rest Defect Extent (% DIONTE)2.00Rev. Defect Extent (% DIONTE)0.00 Conclusion 1. Regadenoson cardioisotope stress test did not show any evidence of ischemia or infarct. 2. Normal left ventricular systolic function with ejection fraction calculated at 68%. 3. Low risk for cardiac events.
[2016-09-04] MEDS: VANCOMYCIN PER PHARMACY MC PRN (14:35)
[2016-09-04 15:00] VITALS: BP 139/79
[2016-09-04 19:10] VITALS: BP 138/76
[2016-09-04 23:10] VITALS: BP 150/81
[2016-09-05] VITALS (7 sets, daily range): BP systolic 130–154; BP diastolic 79–86
[2016-09-05] MEDS: VANCOMYCIN 1.25 GM in IV NORMAL SALINE 250ML 250 ML IV SCH ×2 (01:25→14:21)
[2016-09-05 05:32] LABS: BASO % 0 % (0-3); EOS % 1 % (0-3); HEMATOCRIT 35.2 % (39.0-53.0); HEMOGLOBIN 12.3 g/dL (13.0-17.5); LYMPH # 1.1 x10^3/uL (1.0-4.8); LYMPH % 11 % (24-48); MEAN CORPUSCULAR HEMOGLOBIN 37 pg (25-35); MEAN CORPUSCULAR HGB CONC 35 g/dL (31-37); MEAN CORPUSCULAR VOLUME 105 fL (79-100); MONO % 12 % (0-9); NEUT % 77 % (31-73); PLATELET COUNT 58 x10^3/uL (140-400); RED BLOOD COUNT 3.36 x10^6/uL (4.30-5.70); RED CELL DISTRIBUTION WIDTH 15.3 % (11.5-14.5); WHITE BLOOD COUNT 10.4 x10^3/uL (4.0-11.0)
--- NOTE | 2016-09-05 08:42 | PDOC ---
Subjective: Subjective: Onc f/u- Thrombocytopenia Feeling well, no chest pain. No new complaints. Objective: Vital Signs: Vital Signs Date Time Temp Pulse Resp B/P (MAP) Pulse Ox O2 Delivery O2 Flow Rate FiO2 09/05/16 07:15 97.7 63 16 154/86 (108) 99 Room Air 97.7 09/04/16 19:45 10.0 Physical Exam: Extremities: No edema General: Alert, Oriented X3, Cooperative, No acute distress Lungs: Other (no respiratory distress) Psych/Mental Status: Mental status NL, Mood NL Skin: Other (no execssive bruising) Labs/Imaging: Plt 58 MRI abd- hemangioma Hepatitis panel neg Assessment/Plan A/P: 1. Acute on chronic thrombocytopenia due to his underlying cirrhosis, likely from previous alcohol abuse (stopped 3 yr ago). Worsened by infection, but back to his baseline ~ 62 now (was 89 in 2013). No further interventions needed. MRI revealed hemangioma, no evidence of underlying malignancy. 2. Perineal abscess, status post incision and drainage. On antibiotics. Please call with any further questions. GALE EPSTEIN DO Sep 05, 2016 08:42
[2016-09-05] MEDS: azaTHIOprine 50 MG TABLET PO SCH (09:06)
[2016-09-05] MEDS: VANCOMYCIN PER PHARMACY MC PRN (09:23)
--- NOTE | 2016-09-05 11:09 | PDOC ---
PROGRESS NOTES Chief Complaint Chief Complaint cc: nausea dizziness A/P MRSA perineal abscess s/p I and D: on Vancomycin, renal dosing, surgery following. final sensitives pending. Elevated troponin : negative stress test. hx Autoimmune hepatitis, HX ETOH Thrombocytopenia, stable History of Present Illness History of Present Illness no fever doing better no chest pain Vitals Vitals Vital Signs Date Time Temp Pulse Resp B/P (MAP) Pulse Ox O2 Delivery O2 Flow Rate FiO2 09/05/16 08:00 Room Air 10.0 09/05/16 07:15 97.7 63 16 154/86 (108) 99 97.7 Physical Exam General: Alert, Oriented X3, Cooperative, No acute distress Heart: Regular rate, Normal S1, Normal S2 Lungs: Clear Abdomen: Normal bowel sounds, Soft, Other (perineal abscess. ) Extremities: No edema Skin: Other (no execssive bruising) Labs LABS Laboratory Tests Test 09/05/16 05:00 White Blood Count 10.4 x10^3/uL (4.0-11.0) Red Blood Count 3.36 x10^6/uL (4.30-5.70) Hemoglobin 12.3 g/dL (13.0-17.5) Hematocrit 35.2 % (39.0-53.0) Mean Corpuscular Volume 105 fL (79-100) Mean Corpuscular Hemoglobin 37 pg (25-35) Mean Corpuscular Hemoglobin Concent 35 g/dL (31-37) Red Cell Distribution Width 15.3 % (11.5-14.5) Platelet Count 58 x10^3/uL (140-400) Neutrophils (%) (Auto) 77 % (31-73) Lymphocytes (%) (Auto) 11 % (24-48) Monocytes (%) (Auto) 12 % (0-9) Eosinophils (%) (Auto) 1 % (0-3) Basophils (%) (Auto) 0 % (0-3) Neutrophils # (Auto) 7.9 x10^3uL (1.8-7.7) Lymphocytes # (Auto) 1.1 x10^3/uL (1.0-4.8) Monocytes # (Auto) 1.2 x10^3/uL (0.0-1.1) Eosinophils # (Auto) 0.1 x10^3/uL (0.0-0.7) Basophils # (Auto) 0.0 x10^3/uL (0.0-0.2) Assessment and Plan Assessmemt and Plan Problems Medical Problems: (1) Nausea & vomiting Status: Acute (2) Near syncope Status: Acute (3) NSTEMI (non-ST elevated myocardial infarction) Status: Acute Problems: Comment Review of Relevant I have reviewed the following items pina (where applicable) has been applied. Labs Laboratory Tests Test 09/04/16 03:20 09/05/16 05:00 White Blood Count 17.3 x10^3/uL (4.0-11.0) 10.4 x10^3/uL (4.0-11.0) Red Blood Count 3.23 x10^6/uL (4.30-5.70) 3.36 x10^6/uL (4.30-5.70) Hemoglobin 11.7 g/dL (13.0-17.5) 12.3 g/dL (13.0-17.5) Hematocrit 33.7 % (39.0-53.0) 35.2 % (39.0-53.0) Mean Corpuscular Volume 104 fL (79-100) 105 fL (79-100) Mean Corpuscular Hemoglobin 36 pg (25-35) 37 pg (25-35) Mean Corpuscular Hemoglobin Concent 35 g/dL (31-37) 35 g/dL (31-37) Red Cell Distribution Width 15.8 % (11.5-14.5) 15.3 % (11.5-14.5) Platelet Count 56 x10^3/uL (140-400) 58 x10^3/uL (140-400) Neutrophils (%) (Auto) 91 % (31-73) 77 % (31-73) Lymphocytes (%) (Auto) 4 % (24-48) 11 % (24-48) Monocytes (%) (Auto) 6 % (0-9) 12 % (0-9) Eosinophils (%) (Auto) 0 % (0-3) 1 % (0-3) Basophils (%) (Auto) 0 % (0-3) 0 % (0-3) Neutrophils # (Auto) 15.7 x10^3uL (1.8-7.7) 7.9 x10^3uL (1.8-7.7) Lymphocytes # (Auto) 0.6 x10^3/uL (1.0-4.8) 1.1 x10^3/uL (1.0-4.8) Monocytes # (Auto) 1.0 x10^3/uL (0.0-1.1) 1.2 x10^3/uL (0.0-1.1) Eosinophils # (Auto) 0.0 x10^3/uL (0.0-0.7) 0.1 x10^3/uL (0.0-0.7) Basophils # (Auto) 0.0 x10^3/uL (0.0-0.2) 0.0 x10^3/uL (0.0-0.2) Laboratory Tests Test 09/05/16 05:00 White Blood Count 10.4 x10^3/uL (4.0-11.0) Red Blood Count 3.36 x10^6/uL (4.30-5.70) Hemoglobin 12.3 g/dL (13.0-17.5) Hematocrit 35.2 % (39.0-53.0) Mean Corpuscular Volume 105 fL (79-100) Mean Corpuscular Hemoglobin 37 pg (25-35) Mean Corpuscular Hemoglobin Concent 35 g/dL (31-37) Red Cell Distribution Width 15.3 % (11.5-14.5) Platelet Count 58 x10^3/uL (140-400) Neutrophils (%) (Auto) 77 % (31-73) Lymphocytes (%) (Auto) 11 % (24-48) Monocytes (%) (Auto) 12 % (0-9) Eosinophils (%) (Auto) 1 % (0-3) Basophils (%) (Auto) 0 % (0-3) Neutrophils # (Auto) 7.9 x10^3uL (1.8-7.7) Lymphocytes # (Auto) 1.1 x10^3/uL (1.0-4.8) Monocytes # (Auto) 1.2 x10^3/uL (0.0-1.1) Eosinophils # (Auto) 0.1 x10^3/uL (0.0-0.7) Basophils # (Auto) 0.0 x10^3/uL (0.0-0.2) Microbiology 09/02/16 Blood Culture - Preliminary, Resulted NO GROWTH AFTER 2 DAYS 09/02/16 Anaerobic/Aerobic Culture - Preliminary, Resulted 09/02/16 Anaerobic Culture Result 1 (ERNESTO) - Preliminary, Resulted 09/02/16 Aerobic Culture - Final, Resulted 09/02/16 Aerobic Culture Result 1 (ERNESTO) - Final, Resulted 09/02/16 Antimicrobic Susceptibility - Final, Resulted Medications Current Medications Albuterol/ Ipratropium (Duoneb) 3 ml 1X ONCE NEB Last administered on 13:42; Start 09/01/16 at 12:45; Stop 09/01/16 at 12:46; Status DC Aspirin (Ecotrin) 325 mg 1X ONCE PO Last administered on 09/01/16 13:24; Start 09/01/16 at 12:45; Stop 09/01/16 at 12:46; Status DC Ondansetron HCl (Zofran) 4 mg 1X ONCE IV Last administered on 09/01/16 13:23 ; Start 09/01/16 at 12:45; Stop 09/01/16 at 12:46; Status DC Sodium Chloride 1,000 ml @ 1,000 mls/hr 1X ONCE IV Last administered on 13:23; Start 09/01/16 at 12:45; Stop 09/01/16 at 13:44; Status DC Ondansetron HCl (Zofran) 4 mg PRN Q8HRS PRN IV NAUSEA/VOMITING Last administered on 09/01/16 17:51; Start 09/01/16 at 13:45; Stop 09/02/16 at 13:44 ; Status DC Fentanyl Citrate (Fentanyl 2ml Vial) 50 mcg PRN Q2HR PRN IV PAIN; Start at 13:45; Stop 09/02/16 at 13:44; Status DC Enoxaparin Sodium (Lovenox 80mg Syringe) 70 mg 1X ONCE SQ Last administered on 09/01/16 15:04; Start 09/01/16 at 14:00; Stop 09/01/16 at 14:01; Status DC Heparin Sodium (Porcine) (Heparin Sodium) 4,000 unit 1X ONCE IV Last administered on 09/01/16 15:06; Start 09/01/16 at 14:30; Stop 09/01/16 at 15:39 ; Status DC Heparin Sodium/ Dextrose 500 ml @ 0 mls/hr CONT PRN IV SEE I/O RECORD Last administered on 09/01/16 15:05; Start 09/01/16 at 14:30; Stop 09/01/16 at 15:39 ; Status DC Heparin Sodium (Porcine) (Heparin Sodium) 1,900 unit PRN Q6HRS PRN IV FOR UFH LEVEL LESS THAN 0.2; Start 09/01/16 at 14:30; Stop 09/01/16 at 15:39; Status DC Sodium Chloride 1,000 ml @ 75 mls/hr [id number] IV Last administered on 16:54; Start 09/01/16 at 15:35; Stop 09/02/16 at 19:23; Status DC Magnesium Sulfate/ Dextrose 50 ml @ 25 mls/hr 1X ONCE IV Last administered on 09/01/16 16:53; Start 09/01/16 at 16:00; Stop 09/01/16 at 17:59; Status DC Hydralazine HCl (Apresoline) 10 mg PRN Q4HRS PRN IVP ELEVATED BP, SEE COMMENTS ; Start 09/01/16 at 16:30 Metoprolol Tartrate (Lopressor) 25 mg BID PO Last administered on 09/02/16 21: 03; Start 09/01/16 at 16:30; Stop 09/03/16 at 16:15; Status DC Acetaminophen (Tylenol) 650 mg PRN Q6HRS PRN PO FEVER Last administered on 09/02 03:24; Start 09/01/16 at 16:45 Phytonadione 10 mg/Sodium Chloride 51 ml @ 102 mls/hr 1X ONCE IV Last administered on 09/01/16 20:23; Start 09/01/16 at 18:30; Stop 09/01/16 at 18:59 ; Status DC Piperacillin Sod/ Tazobactam Sod 3.375 gm/Sodium Chloride 50 ml @ 100 mls/hr Q6HRS IV Last administered on 09/04/16 11:24; Start 09/02/16 at 12:00; Stop at 12:47; Status DC Sodium Chloride 1,000 ml @ 125 mls/hr Q8H IV Last administered on 09/03/16t 02 :15; Start 09/02/16 at 10:45; Stop 09/04/16 at 12:47; Status DC Lidocaine HCl 20 ml STK-MED ONCE .ROUTE ; Start 09/02/16 at 11:26; Stop at 11:27; Status DC Heparin Sodium/ Sodium Chloride 1,000 ml @ As Directed STK-MED ONCE .ROUTE ; Start 09/02/16 at 11:26; Stop 09/02/16 at 11:27; Status DC Iohexol (Omnipaque 300 Mg/ml) 100 ml STK-MED ONCE .ROUTE ; Start 09/02/16 at 11: 27; Stop 09/02/16 at 11:28; Status DC Propofol 20 ml @ As Directed STK-MED ONCE IV ; Start 09/02/16 at 12:40; Stop at 12:41; Status DC Lidocaine HCl (Lidocaine Pf 2% Vial) 5 ml STK-MED ONCE .ROUTE ; Start 09/02/16 at 12:40; Stop 09/02/16 at 12:41; Status DC Ondansetron HCl (Zofran) 4 mg PRN Q6HRS PRN IV NAUSEA/VOMITING; Start 09/02/16 at 13:15; Stop 09/03/16 at 13:14; Status DC Fentanyl Citrate (Fentanyl 2ml Vial) 25 mcg PRN Q5MIN PRN IV MILD PAIN; Start 09/02/16 at 13:15; Stop 09/03/16 at 13:14; Status DC Fentanyl Citrate (Fentanyl 2ml Vial) 50 mcg PRN Q5MIN PRN IV MODERATE PAIN; Start 09/02/16 at 13:15; Stop 09/03/16 at 13:14; Status DC Morphine Sulfate 1 mg PRN Q10MIN PRN IV SEVERE PAIN; Start 09/02/16 at 13:15; Stop 09/03/16 at 13:14; Status DC Ringer's Solution 1,000 ml @ 30 mls/hr Q24H IV Last administered on 09/02/16t 13:06; Start 09/02/16 at 13:05; Stop 09/03/16 at 01:04; Status DC Lidocaine HCl 2 ml PRN 1X PRN ID PRIOR TO IV START; Start 09/02/16 at 13:15; Stop 09/03/16 at 13:14; Status DC Hydromorphone HCl (Dilaudid) 0.5 mg PRN Q10MIN PRN IV SEV PAIN, Second choice; Start 09/02/16 at 13:15; Stop 09/03/16 at 13:14; Status DC Prochlorperazine Edisylate (Compazine) 5 mg PACU PRN PRN IV NAUSEA, MRX1 Last administered on 09/02/16 14:26; Start 09/02/16 at 13:15; Stop 09/03/16 at 13:14 ; Status DC Fentanyl Citrate (Fentanyl 2ml Vial) 100 mcg STK-MED ONCE .ROUTE ; Start at 13:15; Stop 09/02/16 at 13:16; Status DC Prochlorperazine Maleate (Compazine) 5 mg 1X ONCE PO ; Start 09/02/16 at 14:30 ; Stop 09/02/16 at 14:31; Status DC Prochlorperazine Edisylate (Compazine) 5 mg PACU PRN PRN IV NAUSEA; Start 09/02 at 14:30 Magnesium Sulfate/ Dextrose 50 ml @ 25 mls/hr 1X ONCE IV Last administered on 09/02/16 18:25; Start 09/02/16 at 18:00; Stop 09/02/16 at 19:59; Status DC Lorazepam (Ativan) 1 mg 1X ONCE PO ; Start 09/03/16 at 12:00; Stop 09/03/16 at 12:01; Status DC Azathioprine (Imuran) 150 mg DAILY PO Last administered on 09/05/16 09:06; Start 09/03/16 at 13:00 Gadobutrol (Gadavist) 8 mmol 1X ONCE IV Last administered on 09/03/16 12:59; Start 09/03/16 at 12:30; Stop 09/03/16 at 12:31; Status DC Regadenoson (Lexiscan) 0.4 mg 1X ONCE IV Last administered on 09/04/16 10:09 ; Start 09/04/16 at 08:45; Stop 09/04/16 at 08:47; Status DC Ondansetron HCl (Zofran) 4 mg PRN Q6HRS PRN IV NAUSEA/VOMITING; Start 09/04/16 at 12:45 Ibuprofen (Motrin) 400 mg PRN Q6HRS PRN PO INFLAMMATION; Start 09/04/16 at 12: 45 Vancomycin HCl 1 gm/Sodium Chloride 250 ml @ 250 mls/hr Q12H IV ; Start at 12:45; Status UNV Vancomycin HCl 2 gm/Sodium Chloride 500 ml @ 250 mls/hr 1X ONCE IV Last administered on 09/04/16 14:07; Start 09/04/16 at 13:00; Stop 09/04/16 at 14:59 ; Status DC Vancomycin HCl (Vanco Per Pharmacy) 1 each PRN DAILY PRN MC SEE COMMENTS Last administered on 09/05/16 09:23; Start 09/04/16 at 13:00 Vancomycin HCl 1.25 gm/Sodium Chloride 250 ml @ 167 mls/hr Q12H IV Last administered on 09/05/16 01:25; Start 09/05/16 at 02:00 Vancomycin HCl 1 each 1X ONCE MC ; Start 09/06/16 at 01:30; Stop 09/06/16 at 01 :31 Active Scripts Active Multivitamins (Multivitamin) 1 Each Tablet 1 Tab PO DAILY [Propranolol Hcl] 10 MG Tablet 10 Mg PO BID Protonix (Pantoprazole Sodium) 40 Mg Tablet 40 Mg PO DAILYAC Reported Spironolactone 25 Mg Tablet 1 Tab PO DAILY Azathioprine 50 Mg Tablet 3 Tab PO DAILY Levothyroxine Sodium 75 Mcg Tablet 1 Tab PO DAILY Vitals/I & O Vital Sign - Last 24 Hours 09/04/16 09/04/16 09/04/16 09/04/16 11:21 15:00 19:10 19:45 Temp 98.0 97.8 97.9 98.0 97.8 97.9 Pulse 57 52 56 Resp 20 22 15 B/P (MAP) 121/74 (90) 139/79 (99) 138/76 (96) Pulse Ox 98 98 96 O2 Delivery Room Air Room Air Room Air Room Air O2 Flow Rate 10.0 09/04/16 09/05/16 09/05/16 09/05/16 23:10 03:10 07:15 08:00 Temp 97.5 98.0 97.7 97.5 98.0 97.7 Pulse 60 52 63 Resp 14 14 16 B/P (MAP) 150/81 (104) 145/79 (101) 154/86 (108) Pulse Ox 96 97 99 O2 Delivery Room Air Room Air Room Air Room Air O2 Flow Rate 10.0 Intake and Output 09/04/16 09/04/16 09/05/16 15:00 23:00 07:00 Intake Total 240 ml 740 ml 460 ml Output Total 300 ml Balance 240 ml 740 ml 160 ml BOB HAUSER MD Sep 05, 2016 11:09
--- NOTE | 2016-09-05 12:27 | PDOC ---
PAIGE HDZ RN STAFF 09/05/16 1227: SURGICAL PROGRESS NOTE Subjective less pain with dressing changes overall feeling better Vital Signs Vital Signs Date Time Temp Pulse Resp B/P (MAP) Pulse Ox O2 Delivery O2 Flow Rate FiO2 09/05/16 11:11 98.2 61 133/83 (100) 98 Room Air 98.2 09/05/16 11:00 16 09/05/16 08:00 10.0 I&O Intake and Output 09/05/16 07:00 Intake Total 1440 ml Output Total 300 ml Balance 1140 ml Intake Oral 1440 ml Output Urine Total 300 ml # Voids 6 # Bowel Movements 1 General: Alert, Oriented X3, Cooperative Skin: Other (perineal area, improved appearance, no induration, less erythema ) Labs Laboratory Tests Test 09/04/16 03:20 09/05/16 05:00 White Blood Count 17.3 x10^3/uL (4.0-11.0) 10.4 x10^3/uL (4.0-11.0) Red Blood Count 3.23 x10^6/uL (4.30-5.70) 3.36 x10^6/uL (4.30-5.70) Hemoglobin 11.7 g/dL (13.0-17.5) 12.3 g/dL (13.0-17.5) Hematocrit 33.7 % (39.0-53.0) 35.2 % (39.0-53.0) Mean Corpuscular Volume 104 fL (79-100) 105 fL (79-100) Mean Corpuscular Hemoglobin 36 pg (25-35) 37 pg (25-35) Mean Corpuscular Hemoglobin Concent 35 g/dL (31-37) 35 g/dL (31-37) Red Cell Distribution Width 15.8 % (11.5-14.5) 15.3 % (11.5-14.5) Platelet Count 56 x10^3/uL (140-400) 58 x10^3/uL (140-400) Neutrophils (%) (Auto) 91 % (31-73) 77 % (31-73) Lymphocytes (%) (Auto) 4 % (24-48) 11 % (24-48) Monocytes (%) (Auto) 6 % (0-9) 12 % (0-9) Eosinophils (%) (Auto) 0 % (0-3) 1 % (0-3) Basophils (%) (Auto) 0 % (0-3) 0 % (0-3) Neutrophils # (Auto) 15.7 x10^3uL (1.8-7.7) 7.9 x10^3uL (1.8-7.7) Lymphocytes # (Auto) 0.6 x10^3/uL (1.0-4.8) 1.1 x10^3/uL (1.0-4.8) Monocytes # (Auto) 1.0 x10^3/uL (0.0-1.1) 1.2 x10^3/uL (0.0-1.1) Eosinophils # (Auto) 0.0 x10^3/uL (0.0-0.7) 0.1 x10^3/uL (0.0-0.7) Basophils # (Auto) 0.0 x10^3/uL (0.0-0.2) 0.0 x10^3/uL (0.0-0.2) Laboratory Tests Test 09/05/16 05:00 White Blood Count 10.4 x10^3/uL (4.0-11.0) Red Blood Count 3.36 x10^6/uL (4.30-5.70) Hemoglobin 12.3 g/dL (13.0-17.5) Hematocrit 35.2 % (39.0-53.0) Mean Corpuscular Volume 105 fL (79-100) Mean Corpuscular Hemoglobin 37 pg (25-35) Mean Corpuscular Hemoglobin Concent 35 g/dL (31-37) Red Cell Distribution Width 15.3 % (11.5-14.5) Platelet Count 58 x10^3/uL (140-400) Neutrophils (%) (Auto) 77 % (31-73) Lymphocytes (%) (Auto) 11 % (24-48) Monocytes (%) (Auto) 12 % (0-9) Eosinophils (%) (Auto) 1 % (0-3) Basophils (%) (Auto) 0 % (0-3) Neutrophils # (Auto) 7.9 x10^3uL (1.8-7.7) Lymphocytes # (Auto) 1.1 x10^3/uL (1.0-4.8) Monocytes # (Auto) 1.2 x10^3/uL (0.0-1.1) Eosinophils # (Auto) 0.1 x10^3/uL (0.0-0.7) Basophils # (Auto) 0.0 x10^3/uL (0.0-0.2) Problem List Problems Medical Problems: (1) Nausea & vomiting Status: Acute (2) Near syncope Status: Acute (3) NSTEMI (non-ST elevated myocardial infarction) Status: Acute Assessment/Plan s/p I&D perineal abscess wound looks better, continue wound care, abx Problems: RAPHAEL MOORE MD 09/05/16 9703: SURGICAL PROGRESS NOTE Assessment/Plan Agree with above Problems: PAIGE HDZ APRN Sep 05, 2016 12:27 RAPHAEL MOORE MD Sep 05, 2016 16:49
--- NOTE | 2016-09-05 15:03 | PDOC ---
Subjective: Subjective: Feeling better. No GI concerns. Objective: Objective: Per RN - no GI concerns. Vital Signs: Vital Signs Date Time Temp Pulse Resp B/P (MAP) Pulse Ox O2 Delivery O2 Flow Rate FiO2 09/05/16 11:11 98.2 61 133/83 (100) 98 Room Air 98.2 09/05/16 11:00 16 09/05/16 08:00 10.0 Labs: Laboratory Tests Test 09/05/16 05:00 White Blood Count 10.4 x10^3/uL Red Blood Count 3.36 x10^6/uL Hemoglobin 12.3 g/dL Hematocrit 35.2 % Mean Corpuscular Volume 105 fL Mean Corpuscular Hemoglobin 37 pg Mean Corpuscular Hemoglobin Concent 35 g/dL Red Cell Distribution Width 15.3 % Platelet Count 58 x10^3/uL Neutrophils (%) (Auto) 77 % Lymphocytes (%) (Auto) 11 % Monocytes (%) (Auto) 12 % Eosinophils (%) (Auto) 1 % Basophils (%) (Auto) 0 % Neutrophils # (Auto) 7.9 x10^3uL Lymphocytes # (Auto) 1.1 x10^3/uL Monocytes # (Auto) 1.2 x10^3/uL Eosinophils # (Auto) 0.1 x10^3/uL Basophils # (Auto) 0.0 x10^3/uL Imaging: MPI Conclusion 1. Regadenoson cardioisotope stress test did not show any evidence of ischemia or infarct. 2. Normal left ventricular systolic function with ejection fraction calculated at 68%. 3. Low risk for cardiac events. PE: GEN: NAD LUNGS: clear HEART: siva ABD: NABS, S/ND/NT NEURO/PSYCH: A & O 3 A/P: Near syncope -cardiology has seen, stress test as above Autoimmune hepatitis, cirrhosis, thrombocytopenia, anemia, h/o alcohol use -follows w/ Dr. Pinto, on spironolactone and Imuran, h/o esophageal varices/ banding 2013 -hepatic hemangioma on MRI, heme/onc following, Hep panel neg S/p I&D perineal abscess -on atbx -- Continue same per GI. RUTH CALDERÓN Sep 05, 2016 15:03 RAPHAEL PINK MD Sep 05, 2016 15:07
[2016-09-06 02:28] VITALS: BP 147/77
[2016-09-06] MEDS: VANCOMYCIN 1.25 GM in IV NORMAL SALINE 250ML 250 ML IV SCH (02:33)
[2016-09-06] MEDS: VANCOMYCIN PER PHARMACY MC PRN (03:03)
[2016-09-06 07:00] VITALS: BP 144/83
[2016-09-06] MEDS: azaTHIOprine 50 MG TABLET PO SCH (08:53)
--- NOTE | 2016-09-06 10:45 | PDOC ---
Provider Note Provider Note SURG Osmin Howard POD 4 I&D perirectal abscess wound clean, tunnels 9cm proximally, 2cm distally continue wound care SCOTT BURCH MD Sep 06, 2016 10:44
[2016-09-06 11:00] VITALS: BP 157/99
--- NOTE | 2016-09-06 13:12 | PDOC ---
PROGRESS NOTES Chief Complaint Chief Complaint cc: nausea dizziness A/P MRSA perineal abscess s/p I and D: on zyvox, final sensitives pending. difficult to use bath room, repeated dressing changes Elevated troponin : negative stress test. hx Autoimmune hepatitis, HX ETOH Thrombocytopenia, stable History of Present Illness History of Present Illness no fever doing better no chest pain Vitals Vitals Vital Signs Date Time Temp Pulse Resp B/P (MAP) Pulse Ox O2 Delivery O2 Flow Rate FiO2 09/06/16 11:00 97.7 86 20 157/99 (118) 98 Room Air 97.7 09/05/16 08:00 10.0 Physical Exam General: Alert, Oriented X3, Cooperative Heart: Regular rate, Normal S1, Normal S2 Lungs: Clear Abdomen: Normal bowel sounds, Soft, Other (perineal abscess. ) Extremities: No edema Skin: Other (perineal area, improved appearance, no induration, less erythema ) Labs LABS Laboratory Tests Test 09/06/16 01:40 Vancomycin Level Trough 15.8 mcg/mL (10.0-20.0) Vancomycin Last Dose Date Vancomycin Last Dose Time Assessment and Plan Assessmemt and Plan Problems Medical Problems: (1) Nausea & vomiting Status: Acute (2) Near syncope Status: Acute (3) NSTEMI (non-ST elevated myocardial infarction) Status: Acute Problems: Comment Review of Relevant I have reviewed the following items pina (where applicable) has been applied. Labs Laboratory Tests Test 09/05/16 05:00 09/06/16 01:40 White Blood Count 10.4 x10^3/uL (4.0-11.0) Red Blood Count 3.36 x10^6/uL (4.30-5.70) Hemoglobin 12.3 g/dL (13.0-17.5) Hematocrit 35.2 % (39.0-53.0) Mean Corpuscular Volume 105 fL (79-100) Mean Corpuscular Hemoglobin 37 pg (25-35) Mean Corpuscular Hemoglobin Concent 35 g/dL (31-37) Red Cell Distribution Width 15.3 % (11.5-14.5) Platelet Count 58 x10^3/uL (140-400) Neutrophils (%) (Auto) 77 % (31-73) Lymphocytes (%) (Auto) 11 % (24-48) Monocytes (%) (Auto) 12 % (0-9) Eosinophils (%) (Auto) 1 % (0-3) Basophils (%) (Auto) 0 % (0-3) Neutrophils # (Auto) 7.9 x10^3uL (1.8-7.7) Lymphocytes # (Auto) 1.1 x10^3/uL (1.0-4.8) Monocytes # (Auto) 1.2 x10^3/uL (0.0-1.1) Eosinophils # (Auto) 0.1 x10^3/uL (0.0-0.7) Basophils # (Auto) 0.0 x10^3/uL (0.0-0.2) Vancomycin Level Trough 15.8 mcg/mL (10.0-20.0) Vancomycin Last Dose Date Vancomycin Last Dose Time Laboratory Tests Test 09/06/16 01:40 Vancomycin Level Trough 15.8 mcg/mL (10.0-20.0) Vancomycin Last Dose Date Vancomycin Last Dose Time Microbiology 09/02/16 Blood Culture - Preliminary, Resulted NO GROWTH AFTER 4 DAYS 09/02/16 Anaerobic/Aerobic Culture - Final, Complete 09/02/16 Anaerobic Culture Result 1 (ERNESTO) - Final, Complete 09/02/16 Aerobic Culture - Final, Complete 09/02/16 Aerobic Culture Result 1 (ERNESTO) - Final, Complete 09/02/16 Antimicrobic Susceptibility - Final, Complete Medications Current Medications Albuterol/ Ipratropium (Duoneb) 3 ml 1X ONCE NEB Last administered on 13:42; Start 09/01/16 at 12:45; Stop 09/01/16 at 12:46; Status DC Aspirin (Ecotrin) 325 mg 1X ONCE PO Last administered on 09/01/16 13:24; Start 09/01/16 at 12:45; Stop 09/01/16 at 12:46; Status DC Ondansetron HCl (Zofran) 4 mg 1X ONCE IV Last administered on 09/01/16 13:23 ; Start 09/01/16 at 12:45; Stop 09/01/16 at 12:46; Status DC Sodium Chloride 1,000 ml @ 1,000 mls/hr 1X ONCE IV Last administered on 13:23; Start 09/01/16 at 12:45; Stop 09/01/16 at 13:44; Status DC Ondansetron HCl (Zofran) 4 mg PRN Q8HRS PRN IV NAUSEA/VOMITING Last administered on 09/01/16 17:51; Start 09/01/16 at 13:45; Stop 09/02/16 at 13:44 ; Status DC Fentanyl Citrate (Fentanyl 2ml Vial) 50 mcg PRN Q2HR PRN IV PAIN; Start at 13:45; Stop 09/02/16 at 13:44; Status DC Enoxaparin Sodium (Lovenox 80mg Syringe) 70 mg 1X ONCE SQ Last administered on 09/01/16 15:04; Start 09/01/16 at 14:00; Stop 09/01/16 at 14:01; Status DC Heparin Sodium (Porcine) (Heparin Sodium) 4,000 unit 1X ONCE IV Last administered on 09/01/16 15:06; Start 09/01/16 at 14:30; Stop 09/01/16 at 15:39 ; Status DC Heparin Sodium/ Dextrose 500 ml @ 0 mls/hr CONT PRN IV SEE I/O RECORD Last administered on 09/01/16 15:05; Start 09/01/16 at 14:30; Stop 09/01/16 at 15:39 ; Status DC Heparin Sodium (Porcine) (Heparin Sodium) 1,900 unit PRN Q6HRS PRN IV FOR UFH LEVEL LESS THAN 0.2; Start 09/01/16 at 14:30; Stop 09/01/16 at 15:39; Status DC Sodium Chloride 1,000 ml @ 75 mls/hr [id number] IV Last administered on 16:54; Start 09/01/16 at 15:35; Stop 09/02/16 at 19:23; Status DC Magnesium Sulfate/ Dextrose 50 ml @ 25 mls/hr 1X ONCE IV Last administered on 09/01/16 16:53; Start 09/01/16 at 16:00; Stop 09/01/16 at 17:59; Status DC Hydralazine HCl (Apresoline) 10 mg PRN Q4HRS PRN IVP ELEVATED BP, SEE COMMENTS ; Start 09/01/16 at 16:30 Metoprolol Tartrate (Lopressor) 25 mg BID PO Last administered on 09/02/16 21: 03; Start 09/01/16 at 16:30; Stop 09/03/16 at 16:15; Status DC Acetaminophen (Tylenol) 650 mg PRN Q6HRS PRN PO FEVER Last administered on 09/02 03:24; Start 09/01/16 at 16:45 Phytonadione 10 mg/Sodium Chloride 51 ml @ 102 mls/hr 1X ONCE IV Last administered on 09/01/16 20:23; Start 09/01/16 at 18:30; Stop 09/01/16 at 18:59 ; Status DC Piperacillin Sod/ Tazobactam Sod 3.375 gm/Sodium Chloride 50 ml @ 100 mls/hr Q6HRS IV Last administered on 09/04/16 11:24; Start 09/02/16 at 12:00; Stop at 12:47; Status DC Sodium Chloride 1,000 ml @ 125 mls/hr Q8H IV Last administered on 09/03/16 02 :15; Start 09/02/16 at 10:45; Stop 09/04/16 at 12:47; Status DC Lidocaine HCl 20 ml STK-MED ONCE .ROUTE ; Start 09/02/16 at 11:26; Stop at 11:27; Status DC Heparin Sodium/ Sodium Chloride 1,000 ml @ As Directed STK-MED ONCE .ROUTE ; Start 09/02/16 at 11:26; Stop 09/02/16 at 11:27; Status DC Iohexol (Omnipaque 300 Mg/ml) 100 ml STK-MED ONCE .ROUTE ; Start 09/02/16 at 11: 27; Stop 09/02/16 at 11:28; Status DC Propofol 20 ml @ As Directed STK-MED ONCE IV ; Start 09/02/16 at 12:40; Stop at 12:41; Status DC Lidocaine HCl (Lidocaine Pf 2% Vial) 5 ml STK-MED ONCE .ROUTE ; Start 09/02/16 at 12:40; Stop 09/02/16 at 12:41; Status DC Ondansetron HCl (Zofran) 4 mg PRN Q6HRS PRN IV NAUSEA/VOMITING; Start 09/02/16 at 13:15; Stop 09/03/16 at 13:14; Status DC Fentanyl Citrate (Fentanyl 2ml Vial) 25 mcg PRN Q5MIN PRN IV MILD PAIN; Start 09/02/16 at 13:15; Stop 09/03/16 at 13:14; Status DC Fentanyl Citrate (Fentanyl 2ml Vial) 50 mcg PRN Q5MIN PRN IV MODERATE PAIN; Start 09/02/16 at 13:15; Stop 09/03/16 at 13:14; Status DC Morphine Sulfate 1 mg PRN Q10MIN PRN IV SEVERE PAIN; Start 09/02/16 at 13:15; Stop 09/03/16 at 13:14; Status DC Ringer's Solution 1,000 ml @ 30 mls/hr Q24H IV Last administered on 09/02/16 13:06; Start 09/02/16 at 13:05; Stop 09/03/16 at 01:04; Status DC Lidocaine HCl 2 ml PRN 1X PRN ID PRIOR TO IV START; Start 09/02/16 at 13:15; Stop 09/03/16 at 13:14; Status DC Hydromorphone HCl (Dilaudid) 0.5 mg PRN Q10MIN PRN IV SEV PAIN, Second choice; Start 09/02/16 at 13:15; Stop 09/03/16 at 13:14; Status DC Prochlorperazine Edisylate (Compazine) 5 mg PACU PRN PRN IV NAUSEA, MRX1 Last administered on 09/02/16 14:26; Start 09/02/16 at 13:15; Stop 09/03/16 at 13:14 ; Status DC Fentanyl Citrate (Fentanyl 2ml Vial) 100 mcg STK-MED ONCE .ROUTE ; Start at 13:15; Stop 09/02/16 at 13:16; Status DC Prochlorperazine Maleate (Compazine) 5 mg 1X ONCE PO ; Start 09/02/16 at 14:30 ; Stop 09/02/16 at 14:31; Status DC Prochlorperazine Edisylate (Compazine) 5 mg PACU PRN PRN IV NAUSEA; Start 09/02 at 14:30 Magnesium Sulfate/ Dextrose 50 ml @ 25 mls/hr 1X ONCE IV Last administered on 09/02/16 18:25; Start 09/02/16 at 18:00; Stop 09/02/16 at 19:59; Status DC Lorazepam (Ativan) 1 mg 1X ONCE PO ; Start 09/03/16 at 12:00; Stop 09/03/16 at 12:01; Status DC Azathioprine (Imuran) 150 mg DAILY PO Last administered on 09/06/16 08:53; Start 09/03/16 at 13:00 Gadobutrol (Gadavist) 8 mmol 1X ONCE IV Last administered on 09/03/16 12:59; Start 09/03/16 at 12:30; Stop 09/03/16 at 12:31; Status DC Regadenoson (Lexiscan) 0.4 mg 1X ONCE IV Last administered on 09/04/16 10:09 ; Start 09/04/16 at 08:45; Stop 09/04/16 at 08:47; Status DC Ondansetron HCl (Zofran) 4 mg PRN Q6HRS PRN IV NAUSEA/VOMITING; Start 09/04/16 at 12:45 Ibuprofen (Motrin) 400 mg PRN Q6HRS PRN PO INFLAMMATION; Start 09/04/16 at 12: 45 Vancomycin HCl 1 gm/Sodium Chloride 250 ml @ 250 mls/hr Q12H IV ; Start at 12:45; Status UNV Vancomycin HCl 2 gm/Sodium Chloride 500 ml @ 250 mls/hr 1X ONCE IV Last administered on 09/04/16 14:07; Start 09/04/16 at 13:00; Stop 09/04/16 at 14:59 ; Status DC Vancomycin HCl (Vanco Per Pharmacy) 1 each PRN DAILY PRN MC SEE COMMENTS Last administered on 09/06/16 03:03; Start 09/04/16 at 13:00 Vancomycin HCl 1.25 gm/Sodium Chloride 250 ml @ 167 mls/hr Q12H IV Last administered on 09/06/16 02:33; Start 09/05/16 at 02:00 Vancomycin HCl 1 each 1X ONCE MC Last administered on 09/06/16 01:30; Start 09/06/16 at 01:30; Stop 09/06/16 at 01:31; Status DC Active Scripts Active Multivitamins (Multivitamin) 1 Each Tablet 1 Tab PO DAILY [Propranolol Hcl] 10 MG Tablet 10 Mg PO BID Protonix (Pantoprazole Sodium) 40 Mg Tablet 40 Mg PO DAILYAC Reported Spironolactone 25 Mg Tablet 1 Tab PO DAILY Azathioprine 50 Mg Tablet 3 Tab PO DAILY Levothyroxine Sodium 75 Mcg Tablet 1 Tab PO DAILY Vitals/I & O Vital Sign - Last 24 Hours 09/05/16 09/05/16 09/05/16 09/05/16 14:55 19:40 20:04 23:02 Temp 98.2 98.2 99.0 98.2 98.2 99.0 Pulse 55 61 66 Resp 18 18 18 B/P (MAP) 148/82 (104) 141/79 (99) 130/85 (100) Pulse Ox 99 97 96 O2 Delivery Room Air Room Air Room Air Room Air 09/06/16 09/06/16 09/06/16 09/06/16 02:28 07:00 08:03 11:00 Temp 98.4 98.4 97.7 98.4 98.4 97.7 Pulse 64 69 86 Resp 18 20 B/P (MAP) 147/77 (100) 144/83 (103) 157/99 (118) Pulse Ox 95 98 98 O2 Delivery Room Air Room Air Room Air Room Air Intake and Output 09/05/16 09/05/16 09/06/16 15:00 23:00 07:00 Intake Total 520 ml 850 ml 600 ml Output Total 300 ml 150 ml Balance 220 ml 700 ml 600 ml BOB HAUSER MD Sep 06, 2016 13:12
[2016-09-06 15:00] VITALS: BP 131/86
[2016-09-06 15:03] LABS: BASO % 0 % (0-3); EOS % 3 % (0-3); HEMATOCRIT 38.5 % (39.0-53.0); HEMOGLOBIN 13.4 g/dL (13.0-17.5); LYMPH # 1.4 x10^3/uL (1.0-4.8); LYMPH % 11 % (24-48); MEAN CORPUSCULAR HEMOGLOBIN 36 pg (25-35); MEAN CORPUSCULAR HGB CONC 35 g/dL (31-37); MEAN CORPUSCULAR VOLUME 104 fL (79-100); MONO % 12 % (0-9); NEUT % 73 % (31-73); PLATELET COUNT 87 x10^3/uL (140-400); RED BLOOD COUNT 3.72 x10^6/uL (4.30-5.70); RED CELL DISTRIBUTION WIDTH 15.6 % (11.5-14.5); WHITE BLOOD COUNT 11.9 x10^3/uL (4.0-11.0)
[2016-09-06 15:22] LABS: CALCIUM 8.4 mg/dL (8.5-10.1)
[2016-09-06 15:23] LABS: GFR 74.1; POTASSIUM 3.4 mmol/L (3.5-5.1)
[2016-09-06 19:15] VITALS: BP 158/82
[2016-09-06] MEDS: LINEZOLID 600 MG TABLET PO SCH (20:09)
[2016-09-06 23:17] VITALS: BP 147/85
[2016-09-07 03:49] VITALS: BP 135/81
[2016-09-07 07:00] VITALS: BP 144/84
[2016-09-07] MEDS: LINEZOLID 600 MG TABLET PO SCH ×2 (08:55→20:45)
--- NOTE | 2016-09-07 10:10 | PDOC ---
Provider Note Provider Note SURG lots of diarrhea otherwise doing well will check stool SCOTT BURCH MD Sep 07, 2016 10:10
[2016-09-07 11:00] VITALS: BP 135/84
--- NOTE | 2016-09-07 13:50 | PDOC ---
PROGRESS NOTES Chief Complaint Chief Complaint cc: nausea dizziness A/P MRSA perineal abscess s/p I and D: on zyvox, final sensitives pending. difficult to use bath room, repeated dressing changes Elevated troponin : negative stress test. hx Autoimmune hepatitis, HX ETOH Thrombocytopenia, stable Diarrhea: stool C diff pendign. History of Present Illness History of Present Illness no fever doing better no chest pain Vitals Vitals Vital Signs Date Time Temp Pulse Resp B/P (MAP) Pulse Ox O2 Delivery O2 Flow Rate FiO2 09/07/16 11:00 98.3 74 18 135/84 (101) 95 Room Air 98.3 Physical Exam General: Alert, Oriented X3, Cooperative Heart: Regular rate, Normal S1, Normal S2 Lungs: Clear Abdomen: Normal bowel sounds, Soft, Other (perineal abscess. ) Extremities: No edema Skin: Other (perineal area, improved appearance, no induration, less erythema ) Labs LABS Laboratory Tests Test 09/06/16 14:25 White Blood Count 11.9 x10^3/uL (4.0-11.0) Red Blood Count 3.72 x10^6/uL (4.30-5.70) Hemoglobin 13.4 g/dL (13.0-17.5) Hematocrit 38.5 % (39.0-53.0) Mean Corpuscular Volume 104 fL (79-100) Mean Corpuscular Hemoglobin 36 pg (25-35) Mean Corpuscular Hemoglobin Concent 35 g/dL (31-37) Red Cell Distribution Width 15.6 % (11.5-14.5) Platelet Count 87 x10^3/uL (140-400) Neutrophils (%) (Auto) 73 % (31-73) Lymphocytes (%) (Auto) 11 % (24-48) Monocytes (%) (Auto) 12 % (0-9) Eosinophils (%) (Auto) 3 % (0-3) Basophils (%) (Auto) 0 % (0-3) Neutrophils # (Auto) 8.6 x10^3uL (1.8-7.7) Lymphocytes # (Auto) 1.4 x10^3/uL (1.0-4.8) Monocytes # (Auto) 1.5 x10^3/uL (0.0-1.1) Eosinophils # (Auto) 0.4 x10^3/uL (0.0-0.7) Basophils # (Auto) 0.0 x10^3/uL (0.0-0.2) Sodium Level 136 mmol/L (136-145) Potassium Level 3.4 mmol/L (3.5-5.1) Chloride Level 103 mmol/L (98-107) Carbon Dioxide Level 24 mmol/L (21-32) Anion Gap 9 (6-14) Blood Urea Nitrogen 13 mg/dL (8-26) Creatinine 1.0 mg/dL (0.7-1.3) Estimated GFR (Cockcroft-Gault) 74.1 Glucose Level 129 mg/dL (70-99) Calcium Level 8.4 mg/dL (8.5-10.1) Assessment and Plan Assessmemt and Plan Problems Medical Problems: (1) Nausea & vomiting Status: Acute (2) Near syncope Status: Acute (3) NSTEMI (non-ST elevated myocardial infarction) Status: Acute Problems: Comment Review of Relevant I have reviewed the following items pina (where applicable) has been applied. Labs Laboratory Tests Test 09/06/16 01:40 09/06/16 14:25 Vancomycin Level Trough 15.8 mcg/mL (10.0-20.0) Vancomycin Last Dose Date Vancomycin Last Dose Time White Blood Count 11.9 x10^3/uL (4.0-11.0) Red Blood Count 3.72 x10^6/uL (4.30-5.70) Hemoglobin 13.4 g/dL (13.0-17.5) Hematocrit 38.5 % (39.0-53.0) Mean Corpuscular Volume 104 fL (79-100) Mean Corpuscular Hemoglobin 36 pg (25-35) Mean Corpuscular Hemoglobin Concent 35 g/dL (31-37) Red Cell Distribution Width 15.6 % (11.5-14.5) Platelet Count 87 x10^3/uL (140-400) Neutrophils (%) (Auto) 73 % (31-73) Lymphocytes (%) (Auto) 11 % (24-48) Monocytes (%) (Auto) 12 % (0-9) Eosinophils (%) (Auto) 3 % (0-3) Basophils (%) (Auto) 0 % (0-3) Neutrophils # (Auto) 8.6 x10^3uL (1.8-7.7) Lymphocytes # (Auto) 1.4 x10^3/uL (1.0-4.8) Monocytes # (Auto) 1.5 x10^3/uL (0.0-1.1) Eosinophils # (Auto) 0.4 x10^3/uL (0.0-0.7) Basophils # (Auto) 0.0 x10^3/uL (0.0-0.2) Sodium Level 136 mmol/L (136-145) Potassium Level 3.4 mmol/L (3.5-5.1) Chloride Level 103 mmol/L (98-107) Carbon Dioxide Level 24 mmol/L (21-32) Anion Gap 9 (6-14) Blood Urea Nitrogen 13 mg/dL (8-26) Creatinine 1.0 mg/dL (0.7-1.3) Estimated GFR (Cockcroft-Gault) 74.1 Glucose Level 129 mg/dL (70-99) Calcium Level 8.4 mg/dL (8.5-10.1) Laboratory Tests Test 09/06/16 14:25 White Blood Count 11.9 x10^3/uL (4.0-11.0) Red Blood Count 3.72 x10^6/uL (4.30-5.70) Hemoglobin 13.4 g/dL (13.0-17.5) Hematocrit 38.5 % (39.0-53.0) Mean Corpuscular Volume 104 fL (79-100) Mean Corpuscular Hemoglobin 36 pg (25-35) Mean Corpuscular Hemoglobin Concent 35 g/dL (31-37) Red Cell Distribution Width 15.6 % (11.5-14.5) Platelet Count 87 x10^3/uL (140-400) Neutrophils (%) (Auto) 73 % (31-73) Lymphocytes (%) (Auto) 11 % (24-48) Monocytes (%) (Auto) 12 % (0-9) Eosinophils (%) (Auto) 3 % (0-3) Basophils (%) (Auto) 0 % (0-3) Neutrophils # (Auto) 8.6 x10^3uL (1.8-7.7) Lymphocytes # (Auto) 1.4 x10^3/uL (1.0-4.8) Monocytes # (Auto) 1.5 x10^3/uL (0.0-1.1) Eosinophils # (Auto) 0.4 x10^3/uL (0.0-0.7) Basophils # (Auto) 0.0 x10^3/uL (0.0-0.2) Sodium Level 136 mmol/L (136-145) Potassium Level 3.4 mmol/L (3.5-5.1) Chloride Level 103 mmol/L (98-107) Carbon Dioxide Level 24 mmol/L (21-32) Anion Gap 9 (6-14) Blood Urea Nitrogen 13 mg/dL (8-26) Creatinine 1.0 mg/dL (0.7-1.3) Estimated GFR (Cockcroft-Gault) 74.1 Glucose Level 129 mg/dL (70-99) Calcium Level 8.4 mg/dL (8.5-10.1) Microbiology 09/02/16 Blood Culture - Final, Complete NO GROWTH AFTER 5 DAYS 09/02/16 Anaerobic/Aerobic Culture - Final, Complete 09/02/16 Anaerobic Culture Result 1 (ERNESTO) - Final, Complete 09/02/16 Aerobic Culture - Final, Complete 09/02/16 Aerobic Culture Result 1 (ERNESTO) - Final, Complete 09/02/16 Antimicrobic Susceptibility - Final, Complete Medications Current Medications Albuterol/ Ipratropium (Duoneb) 3 ml 1X ONCE NEB Last administered on 13:42; Start 09/01/16 at 12:45; Stop 09/01/16 at 12:46; Status DC Aspirin (Ecotrin) 325 mg 1X ONCE PO Last administered on 09/01/16 13:24; Start 09/01/16 at 12:45; Stop 09/01/16 at 12:46; Status DC Ondansetron HCl (Zofran) 4 mg 1X ONCE IV Last administered on 09/01/16 13:23 ; Start 09/01/16 at 12:45; Stop 09/01/16 at 12:46; Status DC Sodium Chloride 1,000 ml @ 1,000 mls/hr 1X ONCE IV Last administered on 13:23; Start 09/01/16 at 12:45; Stop 09/01/16 at 13:44; Status DC Ondansetron HCl (Zofran) 4 mg PRN Q8HRS PRN IV NAUSEA/VOMITING Last administered on 09/01/16 17:51; Start 09/01/16 at 13:45; Stop 09/02/16 at 13:44 ; Status DC Fentanyl Citrate (Fentanyl 2ml Vial) 50 mcg PRN Q2HR PRN IV PAIN; Start at 13:45; Stop 09/02/16 at 13:44; Status DC Enoxaparin Sodium (Lovenox 80mg Syringe) 70 mg 1X ONCE SQ Last administered on 09/01/16 15:04; Start 09/01/16 at 14:00; Stop 09/01/16 at 14:01; Status DC Heparin Sodium (Porcine) (Heparin Sodium) 4,000 unit 1X ONCE IV Last administered on 09/01/16 15:06; Start 09/01/16 at 14:30; Stop 09/01/16 at 15:39 ; Status DC Heparin Sodium/ Dextrose 500 ml @ 0 mls/hr CONT PRN IV SEE I/O RECORD Last administered on 09/01/16 15:05; Start 09/01/16 at 14:30; Stop 09/01/16 at 15:39 ; Status DC Heparin Sodium (Porcine) (Heparin Sodium) 1,900 unit PRN Q6HRS PRN IV FOR UFH LEVEL LESS THAN 0.2; Start 09/01/16 at 14:30; Stop 09/01/16 at 15:39; Status DC Sodium Chloride 1,000 ml @ 75 mls/hr [id number] IV Last administered on 16:54; Start 09/01/16 at 15:35; Stop 09/02/16 at 19:23; Status DC Magnesium Sulfate/ Dextrose 50 ml @ 25 mls/hr 1X ONCE IV Last administered on 09/01/16 16:53; Start 09/01/16 at 16:00; Stop 09/01/16 at 17:59; Status DC Hydralazine HCl (Apresoline) 10 mg PRN Q4HRS PRN IVP ELEVATED BP, SEE COMMENTS ; Start 09/01/16 at 16:30 Metoprolol Tartrate (Lopressor) 25 mg BID PO Last administered on 09/02/16 21: 03; Start 09/01/16 at 16:30; Stop 09/03/16 at 16:15; Status DC Acetaminophen (Tylenol) 650 mg PRN Q6HRS PRN PO FEVER Last administered on 09/02 03:24; Start 09/01/16 at 16:45 Phytonadione 10 mg/Sodium Chloride 51 ml @ 102 mls/hr 1X ONCE IV Last administered on 09/01/16 20:23; Start 09/01/16 at 18:30; Stop 09/01/16 at 18:59 ; Status DC Piperacillin Sod/ Tazobactam Sod 3.375 gm/Sodium Chloride 50 ml @ 100 mls/hr Q6HRS IV Last administered on 09/04/16 11:24; Start 09/02/16 at 12:00; Stop at 12:47; Status DC Sodium Chloride 1,000 ml @ 125 mls/hr Q8H IV Last administered on 09/03/16 02 :15; Start 09/02/16 at 10:45; Stop 09/04/16 at 12:47; Status DC Lidocaine HCl 20 ml STK-MED ONCE .ROUTE ; Start 09/02/16 at 11:26; Stop at 11:27; Status DC Heparin Sodium/ Sodium Chloride 1,000 ml @ As Directed STK-MED ONCE .ROUTE ; Start 09/02/16 at 11:26; Stop 09/02/16 at 11:27; Status DC Iohexol (Omnipaque 300 Mg/ml) 100 ml STK-MED ONCE .ROUTE ; Start 09/02/16 at 11: 27; Stop 09/02/16 at 11:28; Status DC Propofol 20 ml @ As Directed STK-MED ONCE IV ; Start 09/02/16 at 12:40; Stop at 12:41; Status DC Lidocaine HCl (Lidocaine Pf 2% Vial) 5 ml STK-MED ONCE .ROUTE ; Start 09/02/16 at 12:40; Stop 09/02/16 at 12:41; Status DC Ondansetron HCl (Zofran) 4 mg PRN Q6HRS PRN IV NAUSEA/VOMITING; Start 09/02/16 at 13:15; Stop 09/03/16 at 13:14; Status DC Fentanyl Citrate (Fentanyl 2ml Vial) 25 mcg PRN Q5MIN PRN IV MILD PAIN; Start 09/02/16 at 13:15; Stop 09/03/16 at 13:14; Status DC Fentanyl Citrate (Fentanyl 2ml Vial) 50 mcg PRN Q5MIN PRN IV MODERATE PAIN; Start 09/02/16 at 13:15; Stop 09/03/16 at 13:14; Status DC Morphine Sulfate 1 mg PRN Q10MIN PRN IV SEVERE PAIN; Start 09/02/16 at 13:15; Stop 09/03/16 at 13:14; Status DC Ringer's Solution 1,000 ml @ 30 mls/hr Q24H IV Last administered on 09/02/16 13:06; Start 09/02/16 at 13:05; Stop 09/03/16 at 01:04; Status DC Lidocaine HCl 2 ml PRN 1X PRN ID PRIOR TO IV START; Start 09/02/16 at 13:15; Stop 09/03/16 at 13:14; Status DC Hydromorphone HCl (Dilaudid) 0.5 mg PRN Q10MIN PRN IV SEV PAIN, Second choice; Start 09/02/16 at 13:15; Stop 09/03/16 at 13:14; Status DC Prochlorperazine Edisylate (Compazine) 5 mg PACU PRN PRN IV NAUSEA, MRX1 Last administered on 09/02/16 14:26; Start 09/02/16 at 13:15; Stop 09/03/16 at 13:14 ; Status DC Fentanyl Citrate (Fentanyl 2ml Vial) 100 mcg STK-MED ONCE .ROUTE ; Start at 13:15; Stop 09/02/16 at 13:16; Status DC Prochlorperazine Maleate (Compazine) 5 mg 1X ONCE PO ; Start 09/02/16 at 14:30 ; Stop 09/02/16 at 14:31; Status DC Prochlorperazine Edisylate (Compazine) 5 mg PACU PRN PRN IV NAUSEA; Start 09/02 at 14:30 Magnesium Sulfate/ Dextrose 50 ml @ 25 mls/hr 1X ONCE IV Last administered on 09/02/16 18:25; Start 09/02/16 at 18:00; Stop 09/02/16 at 19:59; Status DC Lorazepam (Ativan) 1 mg 1X ONCE PO ; Start 09/03/16 at 12:00; Stop 09/03/16 at 12:01; Status DC Azathioprine (Imuran) 150 mg DAILY PO Last administered on 09/06/16 08:53; Start 09/03/16 at 13:00 Gadobutrol (Gadavist) 8 mmol 1X ONCE IV Last administered on 09/03/16 12:59; Start 09/03/16 at 12:30; Stop 09/03/16 at 12:31; Status DC Regadenoson (Lexiscan) 0.4 mg 1X ONCE IV Last administered on 09/04/16 10:09 ; Start 09/04/16 at 08:45; Stop 09/04/16 at 08:47; Status DC Ondansetron HCl (Zofran) 4 mg PRN Q6HRS PRN IV NAUSEA/VOMITING; Start 09/04/16 at 12:45 Ibuprofen (Motrin) 400 mg PRN Q6HRS PRN PO INFLAMMATION; Start 09/04/16 at 12: 45 Vancomycin HCl 1 gm/Sodium Chloride 250 ml @ 250 mls/hr Q12H IV ; Start at 12:45; Status UNV Vancomycin HCl 2 gm/Sodium Chloride 500 ml @ 250 mls/hr 1X ONCE IV Last administered on 09/04/16 14:07; Start 09/04/16 at 13:00; Stop 09/04/16 at 14:59 ; Status DC Vancomycin HCl (Vanco Per Pharmacy) 1 each PRN DAILY PRN MC SEE COMMENTS Last administered on 09/06/16 03:03; Start 09/04/16 at 13:00; Stop 09/06/16 at 13:15 ; Status DC Vancomycin HCl 1.25 gm/Sodium Chloride 250 ml @ 167 mls/hr Q12H IV Last administered on 09/06/16 02:33; Start 09/05/16 at 02:00; Stop 09/06/16 at 13:10 ; Status DC Vancomycin HCl 1 each 1X ONCE MC Last administered on 09/06/16 01:30; Start 09/06/16 at 01:30; Stop 09/06/16 at 01:31; Status DC Linezolid (Zyvox) 600 mg BID PO Last administered on 09/07/16t 08:55; Start at 21:00 Active Scripts Active Multivitamins (Multivitamin) 1 Each Tablet 1 Tab PO DAILY [Propranolol Hcl] 10 MG Tablet 10 Mg PO BID Protonix (Pantoprazole Sodium) 40 Mg Tablet 40 Mg PO DAILYAC Reported Spironolactone 25 Mg Tablet 1 Tab PO DAILY Azathioprine 50 Mg Tablet 3 Tab PO DAILY Levothyroxine Sodium 75 Mcg Tablet 1 Tab PO DAILY Vitals/I & O Vital Sign - Last 24 Hours 09/06/16 09/06/16 09/06/16 09/06/16 15:00 19:15 20:49 23:17 Temp 98.4 98.5 98.5 98.4 98.5 98.5 Pulse 75 79 75 Resp 18 B/P (MAP) 131/86 (101) 158/82 (107) 147/85 (105) Pulse Ox 96 97 98 O2 Delivery Room Air Room Air Room Air Room Air 09/07/16 09/07/16 09/07/16 09/07/16 03:49 07:00 08:00 11:00 Temp 98.1 98.1 98.3 98.1 98.1 98.3 Pulse 84 72 74 Resp 18 B/P (MAP) 135/81 (99) 144/84 (104) 135/84 (101) Pulse Ox 98 98 95 O2 Delivery Room Air Room Air Room Air Room Air Intake and Output 09/06/16 09/06/16 09/07/16 15:00 23:00 07:00 Intake Total 1200 ml 500 ml Balance 1200 ml 500 ml BOB HAUSER MD Sep 07, 2016 13:50
[2016-09-07 14:53] VITALS: BP 119/86
[2016-09-07] MEDS: azaTHIOprine 50 MG TABLET PO SCH (17:07)
[2016-09-07 19:25] VITALS: BP 146/82
[2016-09-07 23:05] VITALS: BP 146/79
[2016-09-08 03:00] VITALS: BP 140/80
[2016-09-08 07:15] VITALS: BP 122/87
--- NOTE | 2016-09-08 09:49 | PDOC ---
SURGICAL PROGRESS NOTE Subjective no pain wound packing falls out frequently diarrhea improved hoping to discharge today Vital Signs Vital Signs Date Time Temp Pulse Resp B/P (MAP) Pulse Ox O2 Delivery O2 Flow Rate FiO2 09/08/16 07:15 97.9 58 18 122/87 (99) 98 Room Air 97.9 I&O Intake and Output 09/08/16 07:00 Intake Total 150 ml Balance 150 ml Intake Oral 150 ml # Voids 5 # Bowel Movements 4 General: Alert, Oriented X3, Cooperative, No acute distress Skin: Other (wound clean, no erythema or induration ) Labs Laboratory Tests Test 09/06/16 14:25 White Blood Count 11.9 x10^3/uL (4.0-11.0) Red Blood Count 3.72 x10^6/uL (4.30-5.70) Hemoglobin 13.4 g/dL (13.0-17.5) Hematocrit 38.5 % (39.0-53.0) Mean Corpuscular Volume 104 fL (79-100) Mean Corpuscular Hemoglobin 36 pg (25-35) Mean Corpuscular Hemoglobin Concent 35 g/dL (31-37) Red Cell Distribution Width 15.6 % (11.5-14.5) Platelet Count 87 x10^3/uL (140-400) Neutrophils (%) (Auto) 73 % (31-73) Lymphocytes (%) (Auto) 11 % (24-48) Monocytes (%) (Auto) 12 % (0-9) Eosinophils (%) (Auto) 3 % (0-3) Basophils (%) (Auto) 0 % (0-3) Neutrophils # (Auto) 8.6 x10^3uL (1.8-7.7) Lymphocytes # (Auto) 1.4 x10^3/uL (1.0-4.8) Monocytes # (Auto) 1.5 x10^3/uL (0.0-1.1) Eosinophils # (Auto) 0.4 x10^3/uL (0.0-0.7) Basophils # (Auto) 0.0 x10^3/uL (0.0-0.2) Sodium Level 136 mmol/L (136-145) Potassium Level 3.4 mmol/L (3.5-5.1) Chloride Level 103 mmol/L (98-107) Carbon Dioxide Level 24 mmol/L (21-32) Anion Gap 9 (6-14) Blood Urea Nitrogen 13 mg/dL (8-26) Creatinine 1.0 mg/dL (0.7-1.3) Estimated GFR (Cockcroft-Gault) 74.1 Glucose Level 129 mg/dL (70-99) Calcium Level 8.4 mg/dL (8.5-10.1) Problem List Problems Medical Problems: (1) Nausea & vomiting Status: Acute (2) Near syncope Status: Acute (3) NSTEMI (non-ST elevated myocardial infarction) Status: Acute Assessment/Plan ok to dc from surgical pov, wound care and abx-sensitivities back FU in 1 week , spouse plans to do wound care at home 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
[2016-09-08] MEDS: azaTHIOprine 50 MG TABLET PO SCH (10:29)
[2016-09-08] MEDS: LINEZOLID 600 MG TABLET PO SCH (10:29)
[2016-09-08 11:10] VITALS: BP 135/85
[2016-09-08] MEDS ORDERED: LINE600T PO (11:44)
[2016-09-08] MEDS ORDERED: POTASSIUM CHLORIDE 20 MEQ TABLET.ER. PO ONE (11:45)
--- NOTE | 2016-09-08 13:41 | PDOC ---
Subjective: Subjective: Ready to go home, feeling better. Objective: Objective: Per RN - no GI concerns. Vital Signs: Vital Signs Date Time Temp Pulse Resp B/P (MAP) Pulse Ox O2 Delivery O2 Flow Rate FiO2 09/08/16 11:10 97.8 70 18 135/85 (102) 98 Room Air 97.8 PE: GEN: NAD, up to chair ABD: non-tender NEURO/PSYCH: A & O 3 A/P: Autoimmune hepatitis, cirrhosis, thrombocytopenia, anemia, h/o alcohol use -follows w/ Dr. Pinto, on spironolactone and Imuran, h/o esophageal varices/ banding 2013 -hepatic hemangioma on MRI, heme/onc following, Hep panel neg -- DC plans noted, follow-up w/ Dr. Pinto. RUTH CALDERÓN Sep 08, 2016 13:41
[2016-09-08 15:00] VITALS: BP 148/89
--- NOTE | 2016-09-09 01:50 | DS ---
DATE OF DISCHARGE: 09/08/2016 DISCHARGE DIAGNOSES: 1. Methicillin-susceptible Staphylococcus aureus perineal abscess, status post incision and drainage, currently on Zyvox. 2. Elevated troponins, negative stress test, possible due to infection. 3. History of autoimmune hepatitis, currently following Dr. Pinto. 4. History of ethyl alcohol use. 5. Thrombocytopenia, chronic, stable. 6. Diarrhea. Stool Clostridium difficile negative. 7. Small hepatic hemangioma, incidental finding. BRIEF HOSPITAL COURSE: A 71-year-old male patient admitted to the hospital for dizziness and weakness and mild elevation of troponins. During the hospitalization, he was noted to have a perineal abscess, which was drained by Dr. Howard, his cultures grew MRSA and he was placed on vancomycin, later antibiotics changed to Zyvox. The patient showed clinical improvement with his antibiotics and incision and drainage and he has been recommended to follow up with the wound care. For elevated troponins, he had a nuclear stress test and echocardiogram, no ischemia noted and LV ejection fraction normal and no new findings noted. Also, he was evaluated by Dr. Vela and Dr. Cherry. The patient had hepatic hemangioma, which needs to be followed up with primary care doctor. The patient deemed clinically stable enough to go home and follow up with the wound care and Dr. Howard. DISCHARGE PHYSICAL EXAMINATION: GENERAL: Alert, oriented x 3. HEART: S1, S2 present. CHEST: Anterior chest clear. ABDOMEN: Soft, nontender, no organomegaly. EXTREMITIES: No edema. DISCHARGE DISPOSITION: Home. DISCHARGE CONDITION: Stable. FOLLOWUP: With Dr. Howard and Dr. Pinto. DISCHARGE MEDICATIONS: New medication, Zyvox 600 mg p.o. b.i.d. DISCHARGE DIET: Regular. Total time spent for discharge 35 minutes for patient education, counseling and coordination of care. BOB HAUSER MD DR: ESTEFANY/jhoan JOB#: [id number] / [id number] MTDD
== END 2016-09-08 15:30 | disposition home or self-care (01) | DRG 854 ==
LOC: ER 13:15 → 2 SOUTH 14:19
PROVIDERS: ADMIT Internal Medicine; ATTEND Internal Medicine
PROC: 0J9B0ZZ Drainage of Perineum Subcutaneous Tissue and Fascia, Open Approach (ICD-10-PCS; principal; 2016-09-02 12:15)
DX: A41.9 Sepsis, unspecified organism (principal); L02.215 Cutaneous abscess of perineum; D68.9 Coagulation defect, unspecified; I45.2 Bifascicular block; D64.9 Anemia, unspecified; D18.03 Hemangioma of intra-abdominal structures; D69.6 Thrombocytopenia, unspecified; E03.9 Hypothyroidism, unspecified; B95.61 Methicillin susceptible Staphylococcus aureus infection as the cause of diseases classified elsewhere; E83.42 Hypomagnesemia; E86.0 Dehydration; K21.9 Gastro-esophageal reflux disease without esophagitis; I10 Essential (primary) hypertension; K74.60 Unspecified cirrhosis of liver; K75.4 Autoimmune hepatitis; R19.7 Diarrhea, unspecified; Z16.11 Resistance to penicillins; F12.90 Cannabis use, unspecified, uncomplicated; R55 Syncope and collapse; Z82.49 Family history of ischemic heart disease and other diseases of the circulatory system; Z83.3 Family history of diabetes mellitus
CPT/HCPCS: 36415; 71010; 74183; 76705; 78452; 80048; 80053; 80061; 80074; 80076; 80202; 82550; 82607; 82728; 82746; 83540; 83550; 83690; 83735; 83880; 84443; 84484; 85007; 85027; 85384; 85520; 85610; 85730; 87040; 87071; 87075; 87186; 87205; 87324; 93005; 93017; 93306; 94250; 94640; 96372; 96374; 96375; 96376; A9500; A9585; G0480; J0780; J1650; J2405; J2543; J2704; J2785; J3010; J3370; J3430; J7030; J7040; J7050; J7060; J7120; J7500; J7620; 99285-25

== ENCOUNTER 2017-04-15 10:24 | Inpatient (IN) | payer MEDICARE, OTHER ==
[2017-04-15] MEDS ORDERED: VANCOMYCIN PER PHARMACY MC ×2 (11:00→13:00)
[2017-04-15] MEDS ORDERED: PIP/TAZO PER PHARMACY MC ×2 (11:00→13:00)
[2017-04-15 11:15] LABS: BASO % 0 % (0-3); EOS % 0 % (0-3); HEMATOCRIT 41.7 % (39.0-53.0); HEMOGLOBIN 14.7 g/dL (13.0-17.5); LYMPH # 0.9 x10^3/uL (1.0-4.8); LYMPH % 3 % (24-48); MEAN CORPUSCULAR HEMOGLOBIN 36 pg (25-35); MEAN CORPUSCULAR HGB CONC 35 g/dL (31-37); MEAN CORPUSCULAR VOLUME 103 fL (79-100); MONO # 3.2 x10^3/uL (0.0-1.1); MONO % 11 % (0-9); NEUT # 25.8 x10^3uL (1.8-7.7); NEUT % 86 % (31-73); PLATELET COUNT 171 x10^3/uL (140-400); RED BLOOD COUNT 4.03 x10^6/uL (4.30-5.70); RED CELL DISTRIBUTION WIDTH 15.7 % (11.5-14.5)
[2017-04-15 11:17] LABS: ADD MAN DIFF? YES
[2017-04-15 11:20] LABS: ANION GAP 9 (6-14); BLOOD UREA NITROGEN 20 mg/dL (8-26); BUN/CREATININE RATIO 18 (6-20); CALCIUM 8.1 mg/dL (8.5-10.1); CARBON DIOXIDE 23 mmol/L (21-32); CHLORIDE 97 mmol/L (98-107); CREATININE 1.1 mg/dL (0.7-1.3); GFR 66.4; GLUCOSE 135 mg/dL (70-99); POTASSIUM 4.8 mmol/L (3.5-5.1); SODIUM 129 mmol/L (136-145)
[2017-04-15 11:26] LABS: LACTIC ACID 2.5 mmol/L (0.4-2.0); TROPONINI 0.027 ng/mL (0.000-0.055)
[2017-04-15] MEDS: PIPERACILLN-TAZO 4.5GM PREMIX 100 ML IV ×3 (11:32→23:34)
[2017-04-15] MEDS: IV NORMAL SALINE 1000ML BAG 1,000 ML IV (11:32)
[2017-04-15 11:33] LABS: ALBUMIN 2.2 g/dL (3.4-5.0); ALBUMIN/GLOBULIN RATIO 0.4 (1.0-1.7); ALK PHOS 123 U/L (46-116); ALT (SGPT) 40 U/L (16-63); AST (SGOT) 45 U/L (15-37); TOTAL BILIRUBIN 2.8 mg/dL (0.2-1.0); TOTAL PROTEIN 7.3 g/dL (6.4-8.2)
[2017-04-15] MEDS: VANCOMYCIN 1.75 GM in IV DEXTROSE 5 %-0.2 % NACL 500 ML IV (11:33)
[2017-04-15] MEDS ORDERED: fentaNYL PF VIAL 100 MCG/2 ML VIAL IV (12:00)
[2017-04-15] MEDS ORDERED: ONDANSETRON PF 4 MG/2 ML VIAL. IV ×2 (12:00→13:00)
[2017-04-15] MEDS ORDERED: chlordiazePOXIDE HCL 25 MG CAPSULE PO (13:00)
[2017-04-15] MEDS ORDERED: NICOTINE 21MG PATCH. TD (13:00)
[2017-04-15] MEDS: guaiFENesin DM 200MG/20MG 10 ML SYRUP PO ×3 (13:00→21:01)
[2017-04-15] MEDS: ACETAMINOPHEN 325 MG TABLET. PO ×2 (13:14→20:24)
[2017-04-15 13:41] LABS: % ATYL 1 % (0-0); % BANDS 39 % (0-9); % LYMPHS 3 % (24-48); % METAS 1 % (0-0); % MONOS 10 % (0-10); % MYELOS 1 % (0-0); % SEGS 45 % (35-66); PLT ESTIMATE ADEQUATE (ADEQUATE); TOXIC GRANULATION MOD
[2017-04-15 13:42] LABS: BURR CELLS MOD; TOXIC VACUOLATION SLIGHT
[2017-04-15 13:43] LABS: OVALOCYTES MOD; SCHISTOCYTES FEW
[2017-04-15 13:44] LABS: POLYCHROMASIA PRESENT
[2017-04-15] MEDS: PROPRANOLOL 10 MG TABLET. PO ×2 (14:00→20:24)
[2017-04-15 14:26] LABS: MYCOPLASMA PATIENT NEGATIVE (NEGATIVE); NEGATIVE OBC MYCO NEG; POSITIVE OBC MYCO POS
[2017-04-15 14:27] LABS: LACTIC ACID 2.6 mmol/L (0.4-2.0)
[2017-04-15] MEDS: MULTIVIT INFUSN,ADULT 4,VIT K 10 ML, THIAMINE 100 MG, FOLIC ACID 1 MG in IV DEXTROSE 5 ... IV (17:00)
[2017-04-15] MEDS: LACTOBACILLUS RHAMNOSUS GG 1 CAPSULE. PO (20:15)
[2017-04-15 21:48] LABS: INFLUENZA A PATIENT NEGATIVE (NEGATIVE); INFLUENZA B PATIENT NEGATIVE (NEGATIVE); OBC FLU VALID
[2017-04-15] MEDS: ALPRAZolam 0.25 MG TABLET PO (23:34)
[2017-04-16] MEDS: ACETAMINOPHEN 325 MG TABLET. PO (04:00)
[2017-04-16] MEDS: PIPERACILLN-TAZO 4.5GM PREMIX 100 ML IV ×4 (05:50→23:13)
[2017-04-16 06:03] LABS: ADD MAN DIFF? NO
[2017-04-16 06:12] LABS: BASO % 0 % (0-3); EOS # 0.2 x10^3/uL (0.0-0.7); EOS % 1 % (0-3); HEMATOCRIT 36.4 % (39.0-53.0); HEMOGLOBIN 12.7 g/dL (13.0-17.5); LYMPH # 0.7 x10^3/uL (1.0-4.8); LYMPH % 3 % (24-48); MEAN CORPUSCULAR HEMOGLOBIN 36 pg (25-35); MEAN CORPUSCULAR HGB CONC 35 g/dL (31-37); MEAN CORPUSCULAR VOLUME 103 fL (79-100); MONO # 2.5 x10^3/uL (0.0-1.1); MONO % 10 % (0-9); NEUT % 86 % (31-73); RED BLOOD COUNT 3.55 x10^6/uL (4.30-5.70); RED CELL DISTRIBUTION WIDTH 15.8 % (11.5-14.5); WHITE BLOOD COUNT 24.4 x10^3/uL (4.0-11.0)
[2017-04-16] MEDS: LEVOTHYROXINE 75 MCG TABLET PO (06:16)
[2017-04-16 06:25] LABS: PLATELET COUNT 97 x10^3/uL (140-400)
[2017-04-16 06:47] LABS: ANION GAP 8 (6-14); BLOOD UREA NITROGEN 14 mg/dL (8-26); CALCIUM 7.7 mg/dL (8.5-10.1); CARBON DIOXIDE 23 mmol/L (21-32); CHLORIDE 99 mmol/L (98-107); GFR 74.1; GLUCOSE 157 mg/dL (70-99); POTASSIUM 3.8 mmol/L (3.5-5.1); SODIUM 130 mmol/L (136-145)
[2017-04-16] MEDS: PANTOPRAZOLE 40 MG TABLET.DR. PO (07:53)
[2017-04-16] MEDS: MULTIVIT INFUSN,ADULT 4,VIT K 10 ML, THIAMINE 100 MG, FOLIC ACID 1 MG in IV DEXTROSE 5 ... IV (09:00)
[2017-04-16] MEDS: guaiFENesin DM 200MG/20MG 10 ML SYRUP PO ×4 (09:05→20:14)
[2017-04-16] MEDS: LACTOBACILLUS RHAMNOSUS GG 1 CAPSULE. PO ×2 (09:06→20:15)
[2017-04-16] MEDS: SPIRONOLACTONE 25 MG TABLET PO (09:06)
[2017-04-16] MEDS: MULTIVITAMIN with MINERAL TABLET. PO (09:06)
[2017-04-16] MEDS: THIAMINE 100 MG TABLET. PO (09:06)
[2017-04-16] MEDS: PROPRANOLOL 10 MG TABLET. PO ×2 (09:06→20:15)
[2017-04-16] MEDS: FOLIC ACID 1 MG TABLET. PO (09:06)
[2017-04-16] MEDS: LINEZOLID 600 MG TABLET PO ×2 (11:43→20:15)
[2017-04-16] MEDS: azaTHIOprine 50 MG TABLET PO (11:43)
[2017-04-16] MEDS ORDERED: ACETAMINOPHEN 325 MG TABLET. PO (18:45)
[2017-04-16] MEDS: IBUPROFEN 400 MG TABLET. PO (20:14)
[2017-04-16] MEDS: ALPRAZolam 0.25 MG TABLET PO (23:12)
[2017-04-17 05:25] LABS: ADD MAN DIFF? NO
[2017-04-17 05:38] LABS: BASO % 0 % (0-3); EOS # 0.2 x10^3/uL (0.0-0.7); EOS % 1 % (0-3); HEMATOCRIT 36.4 % (39.0-53.0); HEMOGLOBIN 12.6 g/dL (13.0-17.5); LYMPH # 1.3 x10^3/uL (1.0-4.8); LYMPH % 5 % (24-48); MEAN CORPUSCULAR HEMOGLOBIN 36 pg (25-35); MEAN CORPUSCULAR HGB CONC 35 g/dL (31-37); MEAN CORPUSCULAR VOLUME 103 fL (79-100); MONO # 2.5 x10^3/uL (0.0-1.1); MONO % 9 % (0-9); NEUT # 23.1 x10^3uL (1.8-7.7); NEUT % 85 % (31-73); PLATELET COUNT 97 x10^3/uL (140-400); RED BLOOD COUNT 3.55 x10^6/uL (4.30-5.70); WHITE BLOOD COUNT 27.1 x10^3/uL (4.0-11.0)
[2017-04-17] MEDS: PIPERACILLN-TAZO 4.5GM PREMIX 100 ML IV ×3 (05:46→17:36)
[2017-04-17] MEDS: LEVOTHYROXINE 75 MCG TABLET PO (05:47)
[2017-04-17] MEDS: guaiFENesin DM 200MG/20MG 10 ML SYRUP PO ×4 (05:51→20:15)
[2017-04-17 06:02] LABS: ANION GAP 9 (6-14); BLOOD UREA NITROGEN 17 mg/dL (8-26); CALCIUM 7.6 mg/dL (8.5-10.1); CARBON DIOXIDE 22 mmol/L (21-32); CHLORIDE 99 mmol/L (98-107); GFR 74.1; GLUCOSE 93 mg/dL (70-99); POTASSIUM 3.6 mmol/L (3.5-5.1); SODIUM 130 mmol/L (136-145)
[2017-04-17] MEDS: PANTOPRAZOLE 40 MG TABLET.DR. PO (07:40)
[2017-04-17] MEDS: ALBUTEROL SULFATE 2.5 MG/3 ML NEBU. NEB ×2 (08:04→19:24)
[2017-04-17] MEDS: LINEZOLID 600 MG TABLET PO ×2 (09:01→20:15)
[2017-04-17] MEDS: FOLIC ACID 1 MG TABLET. PO (09:01)
[2017-04-17] MEDS: LACTOBACILLUS RHAMNOSUS GG 1 CAPSULE. PO ×2 (09:01→20:15)
[2017-04-17] MEDS: azaTHIOprine 50 MG TABLET PO (09:01)
[2017-04-17] MEDS: SPIRONOLACTONE 25 MG TABLET PO (09:01)
[2017-04-17] MEDS: MULTIVITAMIN with MINERAL TABLET. PO (09:01)
[2017-04-17] MEDS: PROPRANOLOL 10 MG TABLET. PO ×2 (09:01→20:15)
[2017-04-17] MEDS: THIAMINE 100 MG TABLET. PO (09:01)
[2017-04-17] MEDS: NYSTATIN 100,000 UNITS/ML 5 ML ORAL.SUSP. SWSW ×2 (17:36→20:15)
[2017-04-18] MEDS: diphenhydrAMINE HCL 25 MG CAPSULE PO (00:15)
[2017-04-18] MEDS: PIPERACILLN-TAZO 4.5GM PREMIX 100 ML IV ×3 (00:15→12:09)
[2017-04-18 05:20] LABS: ADD MAN DIFF? NO
[2017-04-18 05:38] LABS: BASO % 0 % (0-3); EOS # 0.2 x10^3/uL (0.0-0.7); EOS % 1 % (0-3); HEMATOCRIT 35.8 % (39.0-53.0); HEMOGLOBIN 12.5 g/dL (13.0-17.5); LYMPH # 0.9 x10^3/uL (1.0-4.8); LYMPH % 4 % (24-48); MEAN CORPUSCULAR HEMOGLOBIN 36 pg (25-35); MEAN CORPUSCULAR HGB CONC 35 g/dL (31-37); MEAN CORPUSCULAR VOLUME 102 fL (79-100); MONO # 1.9 x10^3/uL (0.0-1.1); MONO % 8 % (0-9); NEUT # 20.3 x10^3uL (1.8-7.7); NEUT % 87 % (31-73); PLATELET COUNT 118 x10^3/uL (140-400); RED BLOOD COUNT 3.52 x10^6/uL (4.30-5.70); RED CELL DISTRIBUTION WIDTH 15.6 % (11.5-14.5); WHITE BLOOD COUNT 23.3 x10^3/uL (4.0-11.0)
[2017-04-18] MEDS: LEVOTHYROXINE 75 MCG TABLET PO (06:12)
[2017-04-18 06:27] LABS: ANION GAP 9 (6-14); BLOOD UREA NITROGEN 15 mg/dL (8-26); CALCIUM 7.5 mg/dL (8.5-10.1); CARBON DIOXIDE 22 mmol/L (21-32); CHLORIDE 97 mmol/L (98-107); CREATININE 0.9 mg/dL (0.7-1.3); GFR 83.7; GLUCOSE 80 mg/dL (70-99); POTASSIUM 3.8 mmol/L (3.5-5.1); SODIUM 128 mmol/L (136-145)
[2017-04-18 08:08] LABS: SEDIMENTATION RATE 47 (0-15)
[2017-04-18] MEDS: LINEZOLID 600 MG TABLET PO (08:33)
[2017-04-18] MEDS: azaTHIOprine 50 MG TABLET PO (08:34)
[2017-04-18] MEDS: PANTOPRAZOLE 40 MG TABLET.DR. PO (08:35)
[2017-04-18] MEDS: LACTOBACILLUS RHAMNOSUS GG 1 CAPSULE. PO ×2 (08:35→20:29)
[2017-04-18] MEDS: SPIRONOLACTONE 25 MG TABLET PO (08:35)
[2017-04-18] MEDS: NYSTATIN 100,000 UNITS/ML 5 ML ORAL.SUSP. SWSW ×4 (08:35→20:29)
[2017-04-18] MEDS: PROPRANOLOL 10 MG TABLET. PO ×2 (08:35→20:29)
[2017-04-18] MEDS: FOLIC ACID 1 MG TABLET. PO (08:35)
[2017-04-18] MEDS: guaiFENesin DM 200MG/20MG 10 ML SYRUP PO ×4 (08:35→20:29)
[2017-04-18] MEDS: THIAMINE 100 MG TABLET. PO (08:35)
[2017-04-18] MEDS: MULTIVITAMIN with MINERAL TABLET. PO (08:35)
[2017-04-18 10:15] LABS: SPECIMEN SOURCE Urine (.); STREP PNEUMO ANTIGEN Negative (Negative)
[2017-04-18 14:18] LABS: C DIFF BY PCR Negative (Negative)
[2017-04-18] MEDS: VANCOMYCIN PER PHARMACY MC (17:09)
[2017-04-18] MEDS: VANCOMYCIN 1.75 GM in IV DEXTROSE 5 %-0.2 % NACL 500 ML IV (17:29)
[2017-04-19 04:17] LABS: ADD MAN DIFF? NO
[2017-04-19 04:25] LABS: BASO % 0 % (0-3); EOS # 0.2 x10^3/uL (0.0-0.7); EOS % 1 % (0-3); HEMOGLOBIN 12.8 g/dL (13.0-17.5); LYMPH # 0.8 x10^3/uL (1.0-4.8); LYMPH % 4 % (24-48); MEAN CORPUSCULAR HEMOGLOBIN 35 pg (25-35); MEAN CORPUSCULAR HGB CONC 35 g/dL (31-37); MEAN CORPUSCULAR VOLUME 102 fL (79-100); MONO # 1.6 x10^3/uL (0.0-1.1); MONO % 9 % (0-9); NEUT # 16.4 x10^3uL (1.8-7.7); NEUT % 86 % (31-73); PLATELET COUNT 126 x10^3/uL (140-400); RED BLOOD COUNT 3.62 x10^6/uL (4.30-5.70); RED CELL DISTRIBUTION WIDTH 15.8 % (11.5-14.5); WHITE BLOOD COUNT 19.1 x10^3/uL (4.0-11.0)
[2017-04-19 04:40] LABS: ANION GAP 8 (6-14); BLOOD UREA NITROGEN 10 mg/dL (8-26); CALCIUM 7.6 mg/dL (8.5-10.1); CARBON DIOXIDE 23 mmol/L (21-32); CHLORIDE 97 mmol/L (98-107); CREATININE 0.8 mg/dL (0.7-1.3); GFR 95.8; GLUCOSE 114 mg/dL (70-99); POTASSIUM 3.9 mmol/L (3.5-5.1); SODIUM 128 mmol/L (136-145)
[2017-04-19] MEDS: VANCOMYCIN 1 GM in IV DEXTROSE 5% 250 ML IV ×2 (05:01→16:57)
[2017-04-19] MEDS: LEVOTHYROXINE 75 MCG TABLET PO (06:32)
[2017-04-19] MEDS: PANTOPRAZOLE 40 MG TABLET.DR. PO (06:33)
[2017-04-19] MEDS: azaTHIOprine 50 MG TABLET PO (08:31)
[2017-04-19] MEDS: FOLIC ACID 1 MG TABLET. PO (08:31)
[2017-04-19] MEDS: LACTOBACILLUS RHAMNOSUS GG 1 CAPSULE. PO ×2 (08:31→20:53)
[2017-04-19] MEDS: MULTIVITAMIN with MINERAL TABLET. PO (08:31)
[2017-04-19] MEDS: guaiFENesin DM 200MG/20MG 10 ML SYRUP PO ×4 (08:31→20:52)
[2017-04-19] MEDS: PROPRANOLOL 10 MG TABLET. PO ×2 (08:31→20:53)
[2017-04-19] MEDS: THIAMINE 100 MG TABLET. PO (08:31)
[2017-04-19] MEDS: SPIRONOLACTONE 25 MG TABLET PO (08:31)
[2017-04-19] MEDS: NYSTATIN 100,000 UNITS/ML 5 ML ORAL.SUSP. SWSW ×4 (08:31→20:52)
[2017-04-19] MEDS: VANCOMYCIN PER PHARMACY MC (09:23)
[2017-04-19] MEDS: IPRATRPIUM/ALBUTEROL 0.5/2.5MG 3 ML NEBU. NEB ×2 (16:46→20:08)
[2017-04-19] MEDS: diphenhydrAMINE HCL 25 MG CAPSULE PO (20:53)
[2017-04-20 04:51] LABS: ADD MAN DIFF? NO
[2017-04-20 05:00] LABS: BASO % 0 % (0-3); EOS # 0.2 x10^3/uL (0.0-0.7); EOS % 1 % (0-3); HEMATOCRIT 34.3 % (39.0-53.0); LYMPH # 0.7 x10^3/uL (1.0-4.8); LYMPH % 5 % (24-48); MEAN CORPUSCULAR HEMOGLOBIN 36 pg (25-35); MEAN CORPUSCULAR HGB CONC 35 g/dL (31-37); MEAN CORPUSCULAR VOLUME 102 fL (79-100); MONO # 1.3 x10^3/uL (0.0-1.1); MONO % 9 % (0-9); NEUT # 12.4 x10^3uL (1.8-7.7); NEUT % 85 % (31-73); PLATELET COUNT 107 x10^3/uL (140-400); RED BLOOD COUNT 3.36 x10^6/uL (4.30-5.70); RED CELL DISTRIBUTION WIDTH 15.6 % (11.5-14.5); WHITE BLOOD COUNT 14.6 x10^3/uL (4.0-11.0)
[2017-04-20] MEDS: VANCOMYCIN 1 GM in IV DEXTROSE 5% 250 ML IV (05:00)
[2017-04-20 05:12] LABS: VANC TR 10.1 mcg/mL (10.0-20.0)
[2017-04-20 05:22] LABS: ANION GAP 5 (6-14); BLOOD UREA NITROGEN 8 mg/dL (8-26); CALCIUM 7.8 mg/dL (8.5-10.1); CARBON DIOXIDE 25 mmol/L (21-32); CHLORIDE 97 mmol/L (98-107); CREATININE 0.8 mg/dL (0.7-1.3); GFR 95.8; GLUCOSE 131 mg/dL (70-99); POTASSIUM 3.7 mmol/L (3.5-5.1); SODIUM 127 mmol/L (136-145)
[2017-04-20] MEDS: VANCOMYCIN 1.25 GM in IV NORMAL SALINE 250ML 250 ML IV ×2 (05:51→17:53)
[2017-04-20] MEDS: VANCOMYCIN PER PHARMACY MC ×2 (05:51→15:01)
[2017-04-20] MEDS: PANTOPRAZOLE 40 MG TABLET.DR. PO (05:51)
[2017-04-20] MEDS: LEVOTHYROXINE 75 MCG TABLET PO (05:51)
[2017-04-20] MEDS: IPRATRPIUM/ALBUTEROL 0.5/2.5MG 3 ML NEBU. NEB ×4 (08:00→20:05)
[2017-04-20] MEDS: NYSTATIN 100,000 UNITS/ML 5 ML ORAL.SUSP. SWSW ×4 (08:32→21:58)
[2017-04-20] MEDS: guaiFENesin DM 200MG/20MG 10 ML SYRUP PO ×4 (08:32→22:00)
[2017-04-20] MEDS: THIAMINE 100 MG TABLET. PO (08:32)
[2017-04-20] MEDS: azaTHIOprine 50 MG TABLET PO (08:32)
[2017-04-20] MEDS: SPIRONOLACTONE 25 MG TABLET PO (08:32)
[2017-04-20] MEDS: MULTIVITAMIN with MINERAL TABLET. PO (08:32)
[2017-04-20] MEDS: PROPRANOLOL 10 MG TABLET. PO ×2 (08:32→22:01)
[2017-04-20] MEDS: FOLIC ACID 1 MG TABLET. PO (08:32)
[2017-04-20] MEDS: LACTOBACILLUS RHAMNOSUS GG 1 CAPSULE. PO ×2 (08:32→21:59)
[2017-04-20] MEDS: PIPERACILLIN/TAZOBACTAM 3.375 GM in IV DEXTROSE 5% 50 ML IV ×2 (11:44→17:11)
[2017-04-20] MEDS: diphenhydrAMINE HCL 25 MG CAPSULE PO (22:27)
[2017-04-20 23:10] LABS: LEGIONELLA AG UR Negative (Negative)
[2017-04-21] MEDS: PIPERACILLIN/TAZOBACTAM 3.375 GM in IV DEXTROSE 5% 50 ML IV ×4 (00:16→17:42)
[2017-04-21 05:32] LABS: BASO % 0 % (0-3); EOS # 0.2 x10^3/uL (0.0-0.7); EOS % 2 % (0-3); HEMOGLOBIN 11.7 g/dL (13.0-17.5); LYMPH # 0.8 x10^3/uL (1.0-4.8); LYMPH % 7 % (24-48); MEAN CORPUSCULAR HEMOGLOBIN 36 pg (25-35); MEAN CORPUSCULAR HGB CONC 36 g/dL (31-37); MEAN CORPUSCULAR VOLUME 102 fL (79-100); MONO % 9 % (0-9); NEUT # 9.5 x10^3uL (1.8-7.7); NEUT % 83 % (31-73); PLATELET COUNT 104 x10^3/uL (140-400); RED BLOOD COUNT 3.25 x10^6/uL (4.30-5.70); RED CELL DISTRIBUTION WIDTH 14.9 % (11.5-14.5); WHITE BLOOD COUNT 11.5 x10^3/uL (4.0-11.0)
[2017-04-21 05:53] LABS: ANION GAP 2 (6-14); BLOOD UREA NITROGEN 7 mg/dL (8-26); CARBON DIOXIDE 30 mmol/L (21-32); CHLORIDE 97 mmol/L (98-107); GFR 74.1; GLUCOSE 118 mg/dL (70-99); SODIUM 129 mmol/L (136-145)
[2017-04-21 06:04] LABS: ADD MAN DIFF? YES
[2017-04-21 06:18] LABS: THYROID STIM HORMONE (TSH) 5.403 uIU/mL (0.358-3.74)
[2017-04-21] MEDS: LEVOTHYROXINE 75 MCG TABLET PO (06:21)
[2017-04-21] MEDS: PANTOPRAZOLE 40 MG TABLET.DR. PO (06:21)
[2017-04-21] MEDS: VANCOMYCIN 1.25 GM in IV NORMAL SALINE 250ML 250 ML IV (06:22)
[2017-04-21] MEDS: IPRATRPIUM/ALBUTEROL 0.5/2.5MG 3 ML NEBU. NEB ×4 (08:46→19:52)
[2017-04-21 09:37] LABS: % BANDS 3 % (0-9); % LYMPHS 2 % (24-48); % MONOS 2 % (0-10); % MYELOS 3 % (0-0); % SEGS 90 % (35-66)
[2017-04-21 09:38] LABS: PLT ESTIMATE DECREASED (ADEQUATE)
[2017-04-21] MEDS: guaiFENesin DM 200MG/20MG 10 ML SYRUP PO ×4 (10:02→20:56)
[2017-04-21] MEDS: FOLIC ACID 1 MG TABLET. PO (10:02)
[2017-04-21] MEDS: NYSTATIN 100,000 UNITS/ML 5 ML ORAL.SUSP. SWSW (10:02)
[2017-04-21] MEDS: THIAMINE 100 MG TABLET. PO (10:02)
[2017-04-21] MEDS: LACTOBACILLUS RHAMNOSUS GG 1 CAPSULE. PO ×2 (10:02→20:55)
[2017-04-21] MEDS: MULTIVITAMIN with MINERAL TABLET. PO (10:02)
[2017-04-21] MEDS: PROPRANOLOL 10 MG TABLET. PO ×2 (10:03→20:56)
[2017-04-21] MEDS: azaTHIOprine 50 MG TABLET PO (10:03)
[2017-04-21] MEDS: SPIRONOLACTONE 25 MG TABLET PO (10:03)
[2017-04-21] MEDS: FLUCONAZOLE 100MG/50ML PREMIX 50 ML IV (11:57)
[2017-04-21] MEDS ORDERED: 0.9 % SODIUM CHLORIDE 10 ML DISP.SYRIN. IV ×2 (14:15)
[2017-04-21] MEDS: BARIUM SULFATE 340 GM SUSPENSION. PO (14:15)
[2017-04-21] MEDS: BARIUM SULFATE 96% 397 GM ENEMA. PR (14:15)
[2017-04-21] MEDS: VANCOMYCIN PER PHARMACY MC ×2 (15:16→18:42)
[2017-04-21 18:13] LABS: VANC TR 15.5 mcg/mL (10.0-20.0)
[2017-04-21] MEDS: VANCOMYCIN 1.25 GM in IV DEXTROSE 5 %-0.45 % NACL 500 ML IV (19:40)
[2017-04-21] MEDS: diphenhydrAMINE HCL 25 MG CAPSULE PO (20:56)
[2017-04-22] MEDS: PIPERACILLIN/TAZOBACTAM 3.375 GM in IV DEXTROSE 5% 50 ML IV ×5 (00:02→23:40)
[2017-04-22] MEDS: PANTOPRAZOLE 40 MG TABLET.DR. PO (05:43)
[2017-04-22] MEDS: LEVOTHYROXINE 75 MCG TABLET PO (05:44)
[2017-04-22] MEDS: VANCOMYCIN 1.25 GM in IV DEXTROSE 5 %-0.45 % NACL 500 ML IV ×2 (05:45→17:21)
[2017-04-22] MEDS ORDERED: PROCHLORPERAZINE 10 MG/2 ML VIAL. IV (07:00)
[2017-04-22] MEDS ORDERED: LIDOCAINE 1% PF 2 ML VIAL. ID (07:00)
[2017-04-22] MEDS ORDERED: HYDROmorphone 2 MG/ML VIAL IV (07:00)
[2017-04-22] MEDS ORDERED: MORPHINE SULFATE 2 MG/ML DISP.SYRIN. IV (07:00)
[2017-04-22] MEDS: IPRATRPIUM/ALBUTEROL 0.5/2.5MG 3 ML NEBU. NEB ×4 (08:09→20:27)
[2017-04-22] MEDS: guaiFENesin DM 200MG/20MG 10 ML SYRUP PO ×4 (09:00→20:35)
[2017-04-22] MEDS ORDERED: LIDOCAINE 2% VISCOUS 15 ML SOLUTION. (09:05)
[2017-04-22] MEDS ORDERED: LIDOCAINE 2% TOPICAL JELLY 5GM TUBE. TP ×2 (09:06→09:45)
[2017-04-22] MEDS ORDERED: BENZOCAINE ONE 20% MUCOSAL SPRAY. (09:06)
[2017-04-22] MEDS: IV RINGERS,LACTATED 1000ML 1,000 ML IV (09:15)
[2017-04-22] MEDS: LIDOCAINE 2% TOPICAL JELLY 5GM TUBE. TP (09:57)
[2017-04-22] MEDS: BENZOCAINE ONE 20% MUCOSAL SPRAY. MM (09:58)
[2017-04-22] MEDS: LIDOCAINE 2% VISCOUS 15 ML SOLUTION. SWSW ×2 (09:58→10:41)
[2017-04-22] MEDS ORDERED: PROPOFOL 20 ML IV (10:21)
[2017-04-22] MEDS ORDERED: LIDOCAINE 1% PF 5 ML VIAL. (10:21)
[2017-04-22] MEDS: FLUCONAZOLE 100MG/50ML PREMIX 50 ML IV (12:48)
[2017-04-22] MEDS: FOLIC ACID 1 MG TABLET. PO (12:49)
[2017-04-22] MEDS: azaTHIOprine 50 MG TABLET PO (12:49)
[2017-04-22] MEDS: LACTOBACILLUS RHAMNOSUS GG 1 CAPSULE. PO ×2 (12:49→20:35)
[2017-04-22] MEDS: MULTIVITAMIN with MINERAL TABLET. PO (12:49)
[2017-04-22] MEDS: SPIRONOLACTONE 25 MG TABLET PO (12:49)
[2017-04-22] MEDS: THIAMINE 100 MG TABLET. PO (12:49)
[2017-04-22] MEDS: PROPRANOLOL 10 MG TABLET. PO ×2 (12:50→20:36)
[2017-04-22 18:00] LABS: ADD MAN DIFF? NO
[2017-04-22 18:03] LABS: BASO % 1 % (0-3); EOS # 0.3 x10^3/uL (0.0-0.7); EOS % 3 % (0-3); HEMATOCRIT 30.9 % (39.0-53.0); LYMPH # 0.9 x10^3/uL (1.0-4.8); LYMPH % 11 % (24-48); MEAN CORPUSCULAR HEMOGLOBIN 36 pg (25-35); MEAN CORPUSCULAR HGB CONC 36 g/dL (31-37); MEAN CORPUSCULAR VOLUME 102 fL (79-100); MONO # 0.8 x10^3/uL (0.0-1.1); MONO % 9 % (0-9); NEUT # 6.5 x10^3uL (1.8-7.7); NEUT % 77 % (31-73); PLATELET COUNT 94 x10^3/uL (140-400); RED BLOOD COUNT 3.04 x10^6/uL (4.30-5.70); RED CELL DISTRIBUTION WIDTH 15.1 % (11.5-14.5); WHITE BLOOD COUNT 8.5 x10^3/uL (4.0-11.0)
[2017-04-22 18:24] LABS: ANION GAP 7 (6-14); BLOOD UREA NITROGEN 6 mg/dL (8-26); CALCIUM 7.7 mg/dL (8.5-10.1); CARBON DIOXIDE 26 mmol/L (21-32); CHLORIDE 98 mmol/L (98-107); CREATININE 0.9 mg/dL (0.7-1.3); GFR 83.7; GLUCOSE 97 mg/dL (70-99); POTASSIUM 3.6 mmol/L (3.5-5.1); SODIUM 131 mmol/L (136-145)
[2017-04-23] MEDS: diphenhydrAMINE HCL 25 MG CAPSULE PO (01:27)
[2017-04-23] MEDS: PIPERACILLIN/TAZOBACTAM 3.375 GM in IV DEXTROSE 5% 50 ML IV ×2 (05:24→11:38)
[2017-04-23 06:05] LABS: ADD MAN DIFF? NO
[2017-04-23] MEDS: LEVOTHYROXINE 75 MCG TABLET PO (06:08)
[2017-04-23] MEDS: VANCOMYCIN 1.25 GM in IV DEXTROSE 5 %-0.45 % NACL 500 ML IV ×2 (06:09→17:23)
[2017-04-23 06:34] LABS: BASO # 0.1 x10^3/uL (0.0-0.2); BASO % 1 % (0-3); EOS # 0.3 x10^3/uL (0.0-0.7); EOS % 3 % (0-3); HEMATOCRIT 30.7 % (39.0-53.0); HEMOGLOBIN 11.1 g/dL (13.0-17.5); LYMPH # 0.8 x10^3/uL (1.0-4.8); LYMPH % 11 % (24-48); MEAN CORPUSCULAR HEMOGLOBIN 37 pg (25-35); MEAN CORPUSCULAR HGB CONC 36 g/dL (31-37); MEAN CORPUSCULAR VOLUME 101 fL (79-100); MONO # 0.6 x10^3/uL (0.0-1.1); MONO % 8 % (0-9); NEUT % 78 % (31-73); PLATELET COUNT 90 x10^3/uL (140-400); RED BLOOD COUNT 3.03 x10^6/uL (4.30-5.70); RED CELL DISTRIBUTION WIDTH 15.3 % (11.5-14.5); WHITE BLOOD COUNT 7.7 x10^3/uL (4.0-11.0)
[2017-04-23 06:37] LABS: ANION GAP 4 (6-14); BLOOD UREA NITROGEN 4 mg/dL (8-26); CALCIUM 7.8 mg/dL (8.5-10.1); CARBON DIOXIDE 28 mmol/L (21-32); CHLORIDE 98 mmol/L (98-107); CREATININE 0.9 mg/dL (0.7-1.3); GFR 83.7; GLUCOSE 95 mg/dL (70-99); POTASSIUM 3.6 mmol/L (3.5-5.1); SODIUM 130 mmol/L (136-145)
[2017-04-23] MEDS: PANTOPRAZOLE 40 MG TABLET.DR. PO (07:25)
[2017-04-23] MEDS: IPRATRPIUM/ALBUTEROL 0.5/2.5MG 3 ML NEBU. NEB ×4 (08:56→20:00)
[2017-04-23] MEDS: PROPRANOLOL 10 MG TABLET. PO ×2 (09:00→20:56)
[2017-04-23] MEDS: FOLIC ACID 1 MG TABLET. PO (09:03)
[2017-04-23] MEDS: LACTOBACILLUS RHAMNOSUS GG 1 CAPSULE. PO ×2 (09:03→20:55)
[2017-04-23] MEDS: azaTHIOprine 50 MG TABLET PO (09:03)
[2017-04-23] MEDS: guaiFENesin DM 200MG/20MG 10 ML SYRUP PO ×4 (09:03→20:55)
[2017-04-23] MEDS: THIAMINE 100 MG TABLET. PO (09:03)
[2017-04-23] MEDS: SPIRONOLACTONE 25 MG TABLET PO (09:04)
[2017-04-23] MEDS: MULTIVITAMIN with MINERAL TABLET. PO (09:04)
[2017-04-23] MEDS: FLUCONAZOLE 100MG/50ML PREMIX 50 ML IV (10:31)
[2017-04-23] MEDS: VANCOMYCIN PER PHARMACY MC (15:22)
[2017-04-23] MEDS: AMOXICILLIN/K CLAV 875/125MG TABLET. PO (20:55)
[2017-04-24] MEDS: LEVOTHYROXINE 75 MCG TABLET PO (05:44)
[2017-04-24] MEDS: VANCOMYCIN 1.25 GM in IV DEXTROSE 5 %-0.45 % NACL 500 ML IV ×2 (05:45→17:47)
[2017-04-24] MEDS: PANTOPRAZOLE 40 MG TABLET.DR. PO (07:43)
[2017-04-24] MEDS: IPRATRPIUM/ALBUTEROL 0.5/2.5MG 3 ML NEBU. NEB ×4 (07:52→20:03)
[2017-04-24] MEDS: PROPRANOLOL 10 MG TABLET. PO ×2 (09:00→21:24)
[2017-04-24] MEDS: SPIRONOLACTONE 25 MG TABLET PO (09:21)
[2017-04-24] MEDS: azaTHIOprine 50 MG TABLET PO (09:21)
[2017-04-24] MEDS: AMOXICILLIN/K CLAV 875/125MG TABLET. PO ×2 (09:21→21:23)
[2017-04-24] MEDS: MULTIVITAMIN with MINERAL TABLET. PO (09:21)
[2017-04-24] MEDS: guaiFENesin DM 200MG/20MG 10 ML SYRUP PO ×4 (09:21→21:23)
[2017-04-24] MEDS: FOLIC ACID 1 MG TABLET. PO (09:21)
[2017-04-24] MEDS: THIAMINE 100 MG TABLET. PO (09:22)
[2017-04-24] MEDS: LACTOBACILLUS RHAMNOSUS GG 1 CAPSULE. PO ×2 (09:22→21:23)
[2017-04-24] MEDS: FLUCONAZOLE 100 MG TABLET. PO (09:22)
[2017-04-24] MEDS: VANCOMYCIN PER PHARMACY MC (15:43)
[2017-04-25] MEDS: VANCOMYCIN 1.25 GM in IV DEXTROSE 5 %-0.45 % NACL 500 ML IV ×2 (05:56→17:40)
[2017-04-25] MEDS: LEVOTHYROXINE 75 MCG TABLET PO (06:31)
[2017-04-25] MEDS: PANTOPRAZOLE 40 MG TABLET.DR. PO (07:50)
[2017-04-25] MEDS: IPRATRPIUM/ALBUTEROL 0.5/2.5MG 3 ML NEBU. NEB ×4 (08:05→19:45)
[2017-04-25] MEDS: guaiFENesin DM 200MG/20MG 10 ML SYRUP PO ×4 (09:14→20:45)
[2017-04-25] MEDS: THIAMINE 100 MG TABLET. PO (09:14)
[2017-04-25] MEDS: PROPRANOLOL 10 MG TABLET. PO ×2 (09:15→20:45)
[2017-04-25] MEDS: MULTIVITAMIN with MINERAL TABLET. PO (09:15)
[2017-04-25] MEDS: LACTOBACILLUS RHAMNOSUS GG 1 CAPSULE. PO ×2 (09:15→20:44)
[2017-04-25] MEDS: FLUCONAZOLE 100 MG TABLET. PO (09:15)
[2017-04-25] MEDS: AMOXICILLIN/K CLAV 875/125MG TABLET. PO ×2 (09:16→20:44)
[2017-04-25] MEDS: azaTHIOprine 50 MG TABLET PO (09:16)
[2017-04-25] MEDS: SPIRONOLACTONE 25 MG TABLET PO (09:16)
[2017-04-25] MEDS: FOLIC ACID 1 MG TABLET. PO (09:16)
[2017-04-25] MEDS: VANCOMYCIN PER PHARMACY MC (15:08)
[2017-04-26] MEDS: LEVOTHYROXINE 75 MCG TABLET PO (06:03)
[2017-04-26] MEDS: VANCOMYCIN 1.25 GM in IV DEXTROSE 5 %-0.45 % NACL 500 ML IV ×2 (06:06→17:34)
[2017-04-26] MEDS: PANTOPRAZOLE 40 MG TABLET.DR. PO (07:19)
[2017-04-26] MEDS: IPRATRPIUM/ALBUTEROL 0.5/2.5MG 3 ML NEBU. NEB ×4 (08:01→18:19)
[2017-04-26] MEDS: LACTOBACILLUS RHAMNOSUS GG 1 CAPSULE. PO (09:15)
[2017-04-26] MEDS: THIAMINE 100 MG TABLET. PO (09:15)
[2017-04-26] MEDS: PROPRANOLOL 10 MG TABLET. PO ×2 (09:15→20:41)
[2017-04-26] MEDS: FLUCONAZOLE 100 MG TABLET. PO (09:15)
[2017-04-26] MEDS: guaiFENesin DM 200MG/20MG 10 ML SYRUP PO ×4 (09:15→20:41)
[2017-04-26] MEDS: AMOXICILLIN/K CLAV 875/125MG TABLET. PO ×2 (09:15→20:41)
[2017-04-26] MEDS: FOLIC ACID 1 MG TABLET. PO (09:16)
[2017-04-26] MEDS: SPIRONOLACTONE 25 MG TABLET PO (09:16)
[2017-04-26] MEDS: azaTHIOprine 50 MG TABLET PO (09:16)
[2017-04-26] MEDS: MULTIVITAMIN with MINERAL TABLET. PO (09:16)
[2017-04-26] MEDS: VANCOMYCIN PER PHARMACY MC (10:06)
[2017-04-27] MEDS: LEVOTHYROXINE 75 MCG TABLET PO (05:20)
[2017-04-27] MEDS: VANCOMYCIN 1.25 GM in IV DEXTROSE 5 %-0.45 % NACL 500 ML IV (05:20)
[2017-04-27] MEDS: IPRATRPIUM/ALBUTEROL 0.5/2.5MG 3 ML NEBU. NEB ×3 (07:35→15:37)
[2017-04-27] MEDS: PANTOPRAZOLE 40 MG TABLET.DR. PO (07:41)
[2017-04-27] MEDS: SPIRONOLACTONE 25 MG TABLET PO (08:11)
[2017-04-27] MEDS: THIAMINE 100 MG TABLET. PO (08:11)
[2017-04-27] MEDS: azaTHIOprine 50 MG TABLET PO (08:11)
[2017-04-27] MEDS: MULTIVITAMIN with MINERAL TABLET. PO (08:11)
[2017-04-27] MEDS: guaiFENesin DM 200MG/20MG 10 ML SYRUP PO ×2 (08:11→12:55)
[2017-04-27] MEDS: FOLIC ACID 1 MG TABLET. PO (08:11)
[2017-04-27] MEDS: PROPRANOLOL 10 MG TABLET. PO (08:11)
[2017-04-27] MEDS: AMOXICILLIN/K CLAV 875/125MG TABLET. PO (08:11)
[2017-04-27] MEDS: FLUCONAZOLE 100 MG TABLET. PO (08:12)
[2017-04-27] MEDS: CARBAMIDE PEROXIDE 6.5% OTIC SOLUTION 15ML BOTTLE. AU (11:50)
[2017-04-27] MEDS: LINEZOLID 600 MG TABLET PO (11:53)
== END 2017-04-27 16:13 | disposition home health service (06) | DRG 871 ==
LOC: ER 10:24 → 5 NORTH 12:13
PROC: 02HV33Z Insertion of Infusion Device into Superior Vena Cava, Percutaneous Approach (ICD-10-PCS; principal; 2017-04-16)
DX: A41.9 Sepsis, unspecified organism (principal); J96.01 Acute respiratory failure with hypoxia; E43 Unspecified severe protein-calorie malnutrition; D69.6 Thrombocytopenia, unspecified; I85.10 Secondary esophageal varices without bleeding; J18.0 Bronchopneumonia, unspecified organism; J47.0 Bronchiectasis with acute lower respiratory infection; E87.1 Hypo-osmolality and hyponatremia; L02.91 Cutaneous abscess, unspecified; K74.60 Unspecified cirrhosis of liver; B37.9 Candidiasis, unspecified; B95.62 Methicillin resistant Staphylococcus aureus infection as the cause of diseases classified elsewhere; E03.9 Hypothyroidism, unspecified; F10.20 Alcohol dependence, uncomplicated; F12.90 Cannabis use, unspecified, uncomplicated; H91.90 Unspecified hearing loss, unspecified ear; I10 Essential (primary) hypertension; K21.9 Gastro-esophageal reflux disease without esophagitis; R07.89 Other chest pain; K75.4 Autoimmune hepatitis; N50.9 Disorder of male genital organs, unspecified; R13.10 Dysphagia, unspecified; Z79.899 Other long term (current) drug therapy; Z82.49 Family history of ischemic heart disease and other diseases of the circulatory system; Z83.3 Family history of diabetes mellitus; Z86.14 Personal history of Methicillin resistant Staphylococcus aureus infection
CPT/HCPCS: 36415; 36569; 71045; 71250; 74220; 80048; 80053; 80202; 83605; 84439; 84443; 84481; 84484; 85007; 85025; 85651; 86738; 87040; 87205; 87252; 87324; 87449; 87804; 87804-59; 92526-GN; 92610-GN; 93005; 93306; 93312; 93325; 94640; 94760; 96374; 96375; 97110-GP; 97116-GP; 97161-GP; 97165-GO; 97530-GP; 99285; 99285-25; J0878; J1450; J2020; J2543; J2704; J3370; J7030; J7050; J7120; J7500; J7613; J7620; Q0163

== ENCOUNTER → 2017-06-25 | Outpatient (CLI) | payer MEDICARE, OTHER | END | disposition home or self-care (01) | LOC: RAD 12:21 | DX: J18.8 Other pneumonia, unspecified organism (principal); R91.8 Other nonspecific abnormal finding of lung field; R06.02 Shortness of breath | CPT/HCPCS: 71046 ==

== ENCOUNTER → 2017-09-04 | Outpatient (CLI) | payer MEDICARE, OTHER | END | disposition home or self-care (01) | LOC: CT 09:17 | DX: R91.8 Other nonspecific abnormal finding of lung field (principal); K74.69 Other cirrhosis of liver; R16.1 Splenomegaly, not elsewhere classified | CPT/HCPCS: 71250 ==

== ENCOUNTER 2018-02-09 17:29 | Observation (INO) | payer MEDICARE ==
[~2018-02-09] VITALS: Ht 165.1 cm; Wt 72.1 kg
[~2018-02-09 17:29] MED LIST changes: +AZAT50TA PO; +LEVO75TA5 PO; +LINE600T PO; +SPIR25TA5 PO
[2018-02-09] MEDS ORDERED: IV NORMAL SALINE 1000ML BAG 1,000 ML IV SCH (17:49)
[2018-02-09 18:03] LABS: BASO # 0.1 x10^3/uL (0.0-0.2); BASO % 1 % (0-3); EOS # 0.1 x10^3/uL (0.0-0.7); EOS % 1 % (0-3); HEMATOCRIT 39.2 % (39.0-53.0); LYMPH # 0.6 x10^3/uL (1.0-4.8); LYMPH % 7 % (24-48); MEAN CORPUSCULAR HEMOGLOBIN 38 pg (25-35); MEAN CORPUSCULAR HGB CONC 36 g/dL (31-37); MEAN CORPUSCULAR VOLUME 106 fL (79-100); MONO # 0.4 x10^3/uL (0.0-1.1); MONO % 4 % (0-9); NEUT # 7.9 x10^3uL (1.8-7.7); NEUT % 87 % (31-73); PLATELET COUNT 102 x10^3/uL (140-400); RED BLOOD COUNT 3.72 x10^6/uL (4.30-5.70); RED CELL DISTRIBUTION WIDTH 17.9 % (11.5-14.5); WHITE BLOOD COUNT 9.1 x10^3/uL (4.0-11.0)
[2018-02-09 18:10] LABS: CALCIUM 9.2 mg/dL (8.5-10.1); CREATININE 1.1 mg/dL (0.7-1.3); GFR 66.2; PROTHROMBIN TIME PATIENT 16.7 SEC (11.7-14.0)
--- NOTE | 2018-02-09 18:14 | PHYS DOC ---
Past Medical History Past Medical History: Hypertension, Hypothyroid, Pneumonia Past Surgical History: Other Additional Past Surgical Histo: esophogeal varisces Alcohol Use: Occasionally Drug Use: Marijuana Adult General Chief Complaint Chief Complaint: ABDOMINAL PAIN HPI HPI Patient is a 72-year-old who presents to the emergency department for evaluation. He had an EGD today, by Dr. Pinto as an outpatient surgery center. He states he has had esophageal banding in the past for varices and this was a repeat follow-up. He states that he was told that he had additional esophageal banding during his procedure today. He states that when he awakened from the anesthesia and was having upper abdominal discomfort, radiating up into his chest. His pain significantly improved from earlier but he has now developed some vomiting. His emesis has been nonbloody. He states he has retched a few times as well. He has not been able to hold anything down since the procedure. He has not had any diarrhea. He is uncertain why he has esophageal varices. He has not had any fevers or chills. There are no alleviating or exacerbating factors to the patient's symptoms otherwise. Review of Systems Review of Systems Constitutional: Denies fever or chills [] Eyes: Denies change in visual acuity, redness, or eye pain [] HENT: Denies nasal congestion or sore throat [] Respiratory: Denies cough or shortness of breath [] Cardiovascular: No additional information not addressed in HPI [] GI: Denies bloody stools or diarrhea [] : Denies dysuria or hematuria [] Musculoskeletal: Denies back pain or joint pain [] Integument: Denies rash or skin lesions [] Neurologic: Denies headache, focal weakness or sensory changes [] Endocrine: Denies polyuria or polydipsia [] All other systems were reviewed and found to be within normal limits, except as documented in this note. Current Medications Current Medications Current Medications Medications (Trade) Dose Ordered Sig/Torres Start Time Stop Time Status Last Admin Dose Admin Info (CONTRAST GIVEN -- Rx MONITORING) 1 each PRN DAILY PRN 02/09/18 19:00 02/11/18 18:59 Iohexol (Omnipaque 300 Mg/ml) 75 ml 1X ONCE 02/09/18 18:45 02/09/18 18:50 DC 02/09/18 19:01 75 ML Ondansetron HCl (Zofran) 4 mg Q4H PRN 02/09/18 19:45 02/10/18 19:44 Pantoprazole Sodium (PROTONIX VIAL for IV PUSH) 40 mg 1X ONCE 02/09/18 18:30 18 18:32 DC 02/09/18 18:30 40 MG Sodium Chloride 1,000 ml @ 1,000 mls/hr Q1H 02/09/18 17:49 02/09/18 18:48 DC 02/09/18 17:49 1,000 MLS/HR Sucralfate (Carafate) 1 gm ONCE ONCE 02/09/18 18:30 02/09/18 18:31 DC 02/09/18 19:45 1 GM Allergies Allergies Allergies Coded Allergies Type Severity Reaction Last Updated Verified I S O L A T I O N *CONTACT* Allergy Unknown 05/26/17 Yes No Known Medication Allergies Allergy Unknown 05/26/17 Yes Physical Exam Physical Exam PHYSICAL EXAM: CONSTITUTIONAL: Well developed, well nourished HEAD: normocephalic, atraumatic EENT: PERRL, EOMI. Conjunctivae normal color, sclerae non-icteric; moist mucous membranes. NECK: Supple, non-tender; no meningismus. LUNGS: Lungs CTA, breathing even and unlabored. Normal air movement. HEART: Regular rate and rhythm, no murmur CHEST: No deformity; non-tender ABDOMEN: The abdomen is soft, there is very mild epigastric tenderness to palpation, without rebound or guarding. Normal bowel sounds are present. The remainder the abdomen is soft and non-tender, no masses or bruits. EXTREM: Normal ROM; no deformity, no calf tenderness. Normal pulses palpable in all extremities. There is no pedal edema. SKIN: No rash; no diaphoresis NEURO: Alert; normal speech and cognition; CN's grossly intact; strength grossly intact without focal deficit. BACK: No CVA TTP. Current Patient Data Vital Signs Vital Signs Date Time Temp Pulse Resp B/P (MAP) Pulse Ox O2 Delivery O2 Flow Rate FiO2 02/09/18 17:42 97.8 83 18 167/88 (114) 99 Room Air 97.8 Lab Values Laboratory Tests Test 02/09/18 17:45 White Blood Count 9.1 x10^3/uL (4.0-11.0) Red Blood Count 3.72 x10^6/uL (4.30-5.70) L Hemoglobin 14.0 g/dL (13.0-17.5) Hematocrit 39.2 % (39.0-53.0) Mean Corpuscular Volume 106 fL (79-100) H Mean Corpuscular Hemoglobin 38 pg (25-35) H Mean Corpuscular Hemoglobin Concent 36 g/dL (31-37) Red Cell Distribution Width 17.9 % (11.5-14.5) H Platelet Count 102 x10^3/uL (140-400) L Neutrophils (%) (Auto) 87 % (31-73) H Lymphocytes (%) (Auto) 7 % (24-48) L Monocytes (%) (Auto) 4 % (0-9) Eosinophils (%) (Auto) 1 % (0-3) Basophils (%) (Auto) 1 % (0-3) Neutrophils # (Auto) 7.9 x10^3uL (1.8-7.7) H Lymphocytes # (Auto) 0.6 x10^3/uL (1.0-4.8) L Monocytes # (Auto) 0.4 x10^3/uL (0.0-1.1) Eosinophils # (Auto) 0.1 x10^3/uL (0.0-0.7) Basophils # (Auto) 0.1 x10^3/uL (0.0-0.2) Segmented Neutrophils % 88 % (35-66) H Lymphocytes % 8 % (24-48) L Monocytes % 3 % (0-10) Basophils % 1 % (0-3) Platelet Estimate Adequate (ADEQUATE) Prothrombin Time 16.7 SEC (11.7-14.0) H Prothrombin Time INR 1.4 (0.8-1.1) H Sodium Level 139 mmol/L (136-145) Potassium Level 4.0 mmol/L (3.5-5.1) Chloride Level 104 mmol/L (98-107) Carbon Dioxide Level 21 mmol/L (21-32) Anion Gap 14 (6-14) Blood Urea Nitrogen 12 mg/dL (8-26) Creatinine 1.1 mg/dL (0.7-1.3) Estimated GFR (Cockcroft-Gault) 66.2 BUN/Creatinine Ratio 11 (6-20) Glucose Level 127 mg/dL (70-99) H Calcium Level 9.2 mg/dL (8.5-10.1) Total Bilirubin 2.8 mg/dL (0.2-1.0) H Aspartate Amino Transferase (AST) 70 U/L (15-37) H Alanine Aminotransferase (ALT) 80 U/L (16-63) H Alkaline Phosphatase 124 U/L (46-116) H Troponin I Quantitative 0.046 ng/mL (0.000-0.055) Total Protein 8.1 g/dL (6.4-8.2) Albumin 2.9 g/dL (3.4-5.0) L Albumin/Globulin Ratio 0.6 (1.0-1.7) L Lipase 121 U/L (73-393) Laboratory Tests 02/09/18 17:45 Laboratory Tests 02/09/18 17:45 EKG EKG [Normal sinus rhythm at a rate of 73 beats for minute, left axis deviation, left anterior fascicular block. There are no acute ischemic ST/T changes.] Radiology/Procedures Radiology/Procedures [] Course & Med Decision Making Course & Med Decision Making 6:10 PM: The patient did have an emesis basin where he had a small amount of gastric contents without any evidence of blood. I spoke with the patient's gastrologist, Dr. Pinto,, who said that the patient has multiple large varices that are quite significant. He recommended giving the patient a dose of his IV PPI, as the patient has not taken his by mouth medication today, giving him Zofran to prevent retching and possible variceal rupture, and also recommended giving the patient oral sucrose slurry. He recommended the patient be observed overnight on the hospitalist and the patient is agreeable to this. He states that the source of the patient's liver disease is a combination of prior alcoholic hepatitis and autoimmune hepatitis. 7:35 PM: The patient's condition remained stable. I discussed test results with the patient including the lesion noted on his CT scan and his liver. The patient states he has had an MRI of this in the past, and it appears that he has had an MRI of his abdomen in August 2016. I will discuss this with the radiologist to make sure that this is the same lesion visualize, but I also discussed the findings with the patient's beating machine operator as well, who will ensure that any required outpatient follow-up is obtained. 7:50 PM: I did speak with the radiologist, who reviewed the patient's prior MRI , and felt that there were lesions that have increased in size since his prior MRI and a new lesion did develop on today's CT scan and continued to recommended outpatient MRI. I did discuss this with the patient as well. Pertinent Labs and Imaging studies reviewed. (See chart for details) [] Dragon Disclaimer Dragon Disclaimer This electronic medical record was generated, in whole or in part, using a voice recognition dictation system. Departure Departure Impression: Primary Impression: Nausea & vomiting Additional Impressions: Abdominal pain Diarrhea Disposition: ADMITTED INPATIENT Admitting Physician: Xie. March Condition: IMPROVED Referrals: CARRILLO VILLAR (PCP) Problem Qualifiers MONTANA BILLINGSLEY MD Feb 09, 2018 18:14
[2018-02-09] MEDS ORDERED: ONDANSETRON PF 4 MG/2 ML VIAL. IV ONE ×2 (18:15→18:30)
[2018-02-09 18:16] LABS: ALBUMIN 2.9 g/dL (3.4-5.0); ALBUMIN/GLOBULIN RATIO 0.6 (1.0-1.7); TOTAL BILIRUBIN 2.8 mg/dL (0.2-1.0); TOTAL PROTEIN 8.1 g/dL (6.4-8.2)
[2018-02-09] MEDS ORDERED: PANTOPRAZOLE IV PUSH 40 MG VIAL. IVP ONE (18:30)
[2018-02-09] MEDS ORDERED: SUCRALFATE 1 GM/10 ML ORAL.SUSP. PO ONE (18:30)
[2018-02-09] MEDS ORDERED: IOHEXOL 300 MG/ML 100ML VIAL. IV ONE (18:45)
[2018-02-09] MEDS ORDERED: CONTRAST GIVEN. MC PRN (19:00)
[2018-02-09 19:07] LABS: % BASOS 1 % (0-3); % LYMPHS 8 % (24-48); % MONOS 3 % (0-10); % SEGS 88 % (35-66)
[2018-02-09 19:10] LABS: PLT ESTIMATE ADEQUATE (ADEQUATE)
--- NOTE | 2018-02-09 19:23 | RAD ---
PQRS Compliance statement: One or more of the following individualized dose reduction techniques were utilized for this examination: 1. Automated exposure control. 2. Adjustment of the mA and/or kV according to patient size. 3. Use of iterative reconstruction technique. Indication:chest/epigastric pain, vomiting, post EGD today, [id number] 75ml, prior sent TECHNIQUE: CT chest with IV contrast with multiplanar reformats. COMPARISON: 09/04/2017 FINDINGS: Heart is normal in size. No pericardial or pleural effusion. Clear neck base. No enlarged axillary, mediastinal or hilar adenopathy. Patulous esophagus noted. Bilateral gynecomastia. Central airways are patent. No pneumothorax or focal consolidation. Mild subpleural reticular opacities are seen in the right lower lobe, nonspecific but may be from aspiration or endobronchial spread of infection. Cirrhotic changes are seen in the liver. There is a 2.8 x 2.6 cm enhancing lesion in the right hepatic dome. Ill-defined mixed attenuating lesion is seen in the segment 7 of the liver measuring 2.2 x 2.0 cm (series 2 image 55). Another partially exophytic enhancing lesion is seen in the segment 2 of the liver measuring 2.0 x 2.1 cm. Spleen is normal in size. Gallbladder, pancreas, visualized kidneys and adrenals within normal limits. Numerous paraesophageal varices are seen. Recanalization of paraumbilical vein is seen. Submucosal edema is seen in the visualized proximal colon most likely from portal venous colopathy. Diffuse mesenteric edema seen. No ascites. No pneumoperitoneum. No suspicious bony lesion. No pneumomediastinum. IMPRESSION: 1. Very small Right lower lobe abnormality as described above may be secondary to aspiration or endobronchial spread of infection. 2. Findings of cirrhosis with evidence of portal venous hypertension. Enhancing lesion the right hepatic dome and segment 2 lesion highly concerning for hepatocellular carcinoma. Nonemergent MRI of the abdomen with IV contrast is recommended. Electronically signed by: Regan Field DO (02/09/2018 7:20 PM) [facility]
[2018-02-09] MEDS ORDERED: ONDANSETRON PF 4 MG/2 ML VIAL. IV PRN ×2 (19:45→21:15)
[2018-02-09 20:45] VITALS: BP 171/98
[2018-02-09] MEDS ORDERED: traMADol 50 MG TABLET PO PRN (21:15)
[2018-02-09] MEDS ORDERED: DOCUSATE SODIUM 100 MG CAPSULE. PO PRN (21:15)
[2018-02-09] MEDS ORDERED: MORPHINE SULFATE 2 MG/ML VIAL. IV PRN (21:15)
[2018-02-09] MEDS ORDERED: ACETAMINOPHEN 325 MG TABLET. PO PRN (21:15)
--- NOTE | 2018-02-09 21:15 | PDOC1 ---
History and Physical Date of Admission Date of Admission 02/09/18 Identification/Chief Complaint Chief Complaint N/V Source Source: Chart review, Patient History of Present Illness History of Present Illness HPI HPI Patient is a 72-year-old who presents to the emergency department for evaluation for N/V. pt has h/o alcoholic and autoimmune hepatitis, got EGD with dr. Pinto today and got esophageal varices banding. after EGD, he started to have epigastric abd pain, constant, 4/10, no radiation , sharp. also has 10 times vomiting after he went home. He did eat some strawberry jello, and the emesis looks mild pinkish, Hb 14 in ER. pt concerned about dehydration, came to ER. no constipation or diarrhea. pt denies cirrhosis, but CT in ER showed cirrhosis, portal vein hypertention and 2 liver mass 2cm suspect Ca. Past Medical History Cardiovascular: HTN Pulmonary: No pertinent hx GI: Other Heme/Onc: No pertinent hx Hepatobiliary: Cirrhosis, Hep A/B/C Psych: No pertinent hx Rheumatologic: No pertinent hx Infectious disease: No pertinent hx Renal/: No pertinent hx Endocrine: Hypothyroidism Past Surgical History Past Surgical History: No pertinent history Family History Family History: Hypertension Social History Smoke: No ALCOHOL: social Drugs: Marijuana Current Problem List Problem List Problems Medical Problems: (1) Abdominal pain Status: Acute (2) Diarrhea Status: Acute (3) Nausea & vomiting Status: Acute Current Medications Current Medications Current Medications Medications (Trade) Dose Ordered Sig/Torres Start Time Stop Time Status Last Admin Dose Admin Info (CONTRAST GIVEN -- Rx MONITORING) 1 each PRN DAILY PRN 02/09/18 19:00 02/11/18 18:59 Iohexol (Omnipaque 300 Mg/ml) 75 ml 1X ONCE 02/09/18 18:45 02/09/18 18:50 DC 02/09/18 19:01 75 ML Ondansetron HCl (Zofran) 4 mg Q4H PRN 02/09/18 19:45 02/10/18 19:44 Pantoprazole Sodium (PROTONIX VIAL for IV PUSH) 40 mg 1X ONCE 02/09/18 18:30 02/09/18 18:32 DC 02/09/18 18:30 40 MG Sodium Chloride 1,000 ml @ 1,000 mls/hr Q1H 02/09/18 17:49 02/09/18 18:48 DC 02/09/18 17:49 1,000 MLS/HR Sucralfate (Carafate) 1 gm ONCE ONCE 02/09/18 18:30 02/09/18 18:31 DC 02/09/18 19:45 1 GM Allergies Allergies Allergies Coded Allergies Type Severity Reaction Last Updated Verified I S O L A T I O N *CONTACT* Allergy Unknown 05/26/17 Yes No Known Medication Allergies Allergy Unknown 05/26/17 Yes ROS Review of System CONSTITUTIONAL: No fever or chills EYES: No recent changes SKIN: No rash or itching CARDIOVASCULAR: No chest pain, syncope, palpitations, or edema RESPIRATORY: No SOB or cough GASTROINTESTINAL: No nausea, vomiting or abdominal pain NEUROLOGICAL: No headaches or weakness ENDOCRINE: No cold or heat intolerance GENITOURINARY: No urgency or frequency of urination MUSCULOSKELETAL: No back pain or joint pain LYMPHATICS: No enlarged lymph nodes PSYCHIATRIC: No anxiety or depression Physical Exam Physical Exam GEN.: No apparent distress. Alert and oriented. HEENT: Head is normocephalic, atraumatic NECK: Supple. LUNGS: Clear to auscultation. HEART: RRR, S1, S2 present. Peripheral pulses intact ABDOMEN: Soft, Positive bowel sounds. epigastric area mild tenderness. EXTREMITIES: Without any cyanosis. NEUROLOGIC: Normal speech, normal tone PSYCHIATRIC: Normal affect, normal mood. SKIN: No ulcerations Vitals Vitals Vital Signs Date Time Temp Pulse Resp B/P (MAP) Pulse Ox O2 Delivery O2 Flow Rate FiO2 02/09/18 20:00 84 18 169/84 (112) 97 02/09/18 17:42 97.8 Room Air 97.8 Labs Labs Laboratory Tests Test 02/09/18 17:45 White Blood Count 9.1 x10^3/uL (4.0-11.0) Red Blood Count 3.72 x10^6/uL (4.30-5.70) Hemoglobin 14.0 g/dL (13.0-17.5) Hematocrit 39.2 % (39.0-53.0) Mean Corpuscular Volume 106 fL (79-100) Mean Corpuscular Hemoglobin 38 pg (25-35) Mean Corpuscular Hemoglobin Concent 36 g/dL (31-37) Red Cell Distribution Width 17.9 % (11.5-14.5) Platelet Count 102 x10^3/uL (140-400) Neutrophils (%) (Auto) 87 % (31-73) Lymphocytes (%) (Auto) 7 % (24-48) Monocytes (%) (Auto) 4 % (0-9) Eosinophils (%) (Auto) 1 % (0-3) Basophils (%) (Auto) 1 % (0-3) Neutrophils # (Auto) 7.9 x10^3uL (1.8-7.7) Lymphocytes # (Auto) 0.6 x10^3/uL (1.0-4.8) Monocytes # (Auto) 0.4 x10^3/uL (0.0-1.1) Eosinophils # (Auto) 0.1 x10^3/uL (0.0-0.7) Basophils # (Auto) 0.1 x10^3/uL (0.0-0.2) Segmented Neutrophils % 88 % (35-66) Lymphocytes % 8 % (24-48) Monocytes % 3 % (0-10) Basophils % 1 % (0-3) Platelet Estimate Adequate (ADEQUATE) Prothrombin Time 16.7 SEC (11.7-14.0) Prothromb Time International Ratio 1.4 (0.8-1.1) Sodium Level 139 mmol/L (136-145) Potassium Level 4.0 mmol/L (3.5-5.1) Chloride Level 104 mmol/L (98-107) Carbon Dioxide Level 21 mmol/L (21-32) Anion Gap 14 (6-14) Blood Urea Nitrogen 12 mg/dL (8-26) Creatinine 1.1 mg/dL (0.7-1.3) Estimated GFR (Cockcroft-Gault) 66.2 BUN/Creatinine Ratio 11 (6-20) Glucose Level 127 mg/dL (70-99) Calcium Level 9.2 mg/dL (8.5-10.1) Total Bilirubin 2.8 mg/dL (0.2-1.0) Aspartate Amino Transf (AST/SGOT) 70 U/L (15-37) Alanine Aminotransferase (ALT/SGPT) 80 U/L (16-63) Alkaline Phosphatase 124 U/L (46-116) Troponin I Quantitative 0.046 ng/mL (0.000-0.055) Total Protein 8.1 g/dL (6.4-8.2) Albumin 2.9 g/dL (3.4-5.0) Albumin/Globulin Ratio 0.6 (1.0-1.7) Lipase 121 U/L (73-393) Laboratory Tests Test 02/09/18 17:45 White Blood Count 9.1 x10^3/uL (4.0-11.0) Red Blood Count 3.72 x10^6/uL (4.30-5.70) Hemoglobin 14.0 g/dL (13.0-17.5) Hematocrit 39.2 % (39.0-53.0) Mean Corpuscular Volume 106 fL (79-100) Mean Corpuscular Hemoglobin 38 pg (25-35) Mean Corpuscular Hemoglobin Concent 36 g/dL (31-37) Red Cell Distribution Width 17.9 % (11.5-14.5) Platelet Count 102 x10^3/uL (140-400) Neutrophils (%) (Auto) 87 % (31-73) Lymphocytes (%) (Auto) 7 % (24-48) Monocytes (%) (Auto) 4 % (0-9) Eosinophils (%) (Auto) 1 % (0-3) Basophils (%) (Auto) 1 % (0-3) Neutrophils # (Auto) 7.9 x10^3uL (1.8-7.7) Lymphocytes # (Auto) 0.6 x10^3/uL (1.0-4.8) Monocytes # (Auto) 0.4 x10^3/uL (0.0-1.1) Eosinophils # (Auto) 0.1 x10^3/uL (0.0-0.7) Basophils # (Auto) 0.1 x10^3/uL (0.0-0.2) Segmented Neutrophils % 88 % (35-66) Lymphocytes % 8 % (24-48) Monocytes % 3 % (0-10) Basophils % 1 % (0-3) Platelet Estimate Adequate (ADEQUATE) Prothrombin Time 16.7 SEC (11.7-14.0) Prothromb Time International Ratio 1.4 (0.8-1.1) Sodium Level 139 mmol/L (136-145) Potassium Level 4.0 mmol/L (3.5-5.1) Chloride Level 104 mmol/L (98-107) Carbon Dioxide Level 21 mmol/L (21-32) Anion Gap 14 (6-14) Blood Urea Nitrogen 12 mg/dL (8-26) Creatinine 1.1 mg/dL (0.7-1.3) Estimated GFR (Cockcroft-Gault) 66.2 BUN/Creatinine Ratio 11 (6-20) Glucose Level 127 mg/dL (70-99) Calcium Level 9.2 mg/dL (8.5-10.1) Total Bilirubin 2.8 mg/dL (0.2-1.0) Aspartate Amino Transf (AST/SGOT) 70 U/L (15-37) Alanine Aminotransferase (ALT/SGPT) 80 U/L (16-63) Alkaline Phosphatase 124 U/L (46-116) Troponin I Quantitative 0.046 ng/mL (0.000-0.055) Total Protein 8.1 g/dL (6.4-8.2) Albumin 2.9 g/dL (3.4-5.0) Albumin/Globulin Ratio 0.6 (1.0-1.7) Lipase 121 U/L (73-393) VTE Prophylaxis Ordered VTE Prophylaxis Devices: Yes VTE Pharmacological Prophylaxi: No Assessment/Plan Assessment/Plan intractable N/V post EGD epigastric abd pain post EGD OUtpt EGD today esophageal varices banding h/o alcoholic and autoimmune hepatitis ct showed cirrhosis , portal vein hypertension, and 2 liver Mass consider Ca hypothyroidism thrombocytopenia 2/2 cirrhosis likely h/o drug abuse with marijuana plan: gi consult need verify home meds protonix iv daily labs tmr got 1L ns in ER diet: clear liquid diet for now dvt ppx: SCD only for now given low plt code: FC Displacement: home soon ASHLEY SAMAYOA MD Feb 09, 2018 21:15
[2018-02-09] MEDS ORDERED: ZOLPIDEM 5 MG TABLET. PO PRN (21:45)
[2018-02-09] MEDS ORDERED: LABETALOL 20 MG/4 ML DISP.SYRIN. IVP PRN (21:45)
[2018-02-09] MEDS ORDERED: METOCLOPRAMIDE HCL 10 MG/2 ML VIAL. IV PRN (21:45)
[2018-02-09 22:36] VITALS: BP 168/96
[2018-02-10 02:55] VITALS: BP 114/70
[2018-02-10 05:22] LABS: BASO % 0 % (0-3); EOS % 0 % (0-3); HEMATOCRIT 37.1 % (39.0-53.0); HEMOGLOBIN 13.3 g/dL (13.0-17.5); LYMPH # 0.6 x10^3/uL (1.0-4.8); LYMPH % 6 % (24-48); MEAN CORPUSCULAR HEMOGLOBIN 38 pg (25-35); MEAN CORPUSCULAR HGB CONC 36 g/dL (31-37); MEAN CORPUSCULAR VOLUME 106 fL (79-100); MONO # 0.6 x10^3/uL (0.0-1.1); MONO % 7 % (0-9); NEUT % 87 % (31-73); PLATELET COUNT 83 x10^3/uL (140-400); RED CELL DISTRIBUTION WIDTH 17.9 % (11.5-14.5); WHITE BLOOD COUNT 9.2 x10^3/uL (4.0-11.0)
[2018-02-10 05:23] LABS: CALCIUM 8.4 mg/dL (8.5-10.1); CREATININE 1.2 mg/dL (0.7-1.3); GFR 59.9; POTASSIUM 3.9 mmol/L (3.5-5.1)
--- NOTE | 2018-02-10 06:14 | EKG ---
[facility] [address] [place] [address] Test Date: 2018-02-09 Test Time: 18:03:03 Pat Name: YO ARCE Department: Room: 528 1 Gender: M Electrical Solderer: : 1945 Requested By: MONTANA BILLINGSLEY Order Number: [id number] Reading MD: Jon Warren Measurements Intervals [place] Rate: 72 P: -38 NC: 170 QRS: -44 QRSD: 142 T: 88 QT: 414 QTc: 460 Interpretive Statements SINUS RHYTHM ATRIAL PREMATURE COMPLEX(ES) ABNORMAL LEFT AXIS DEVIATION LEFT ANTERIOR FASCICULAR BLOCK RIGHT BUNDLE BRANCH BLOCK BIFASCICULAR BLOCK ABNORMAL ECG Electronically Signed On 02-15-2018 10:36:55 SURVEY RESEARCH ASSOCIATE by Jon Warren
[2018-02-10 07:00] VITALS: BP 123/75
[2018-02-10] MEDS ORDERED: PANTOPRAZOLE IV PUSH 40 MG VIAL. IVP SCH (07:30)
--- NOTE | 2018-02-10 08:46 | PDOC2 ---
GI CONSULT Reason For Consult: Liver cancer? HPI: HPI: 72 y/o male who had an EGD w/ Dr. Pinto at [facility] yesterday afternoon - reports banding of esophageal varices performed. Burke weak at home, had some retching/vomiting when he dried to eat soup along w/ some "Acid" pain in his central chest. Came to ER here w/ concern for dehydration. Feels better this morning, tolerating clear liquids, would like to go home. Denies dysphagia, hematemesis, abd pain, diarrhea, constipation, hematochezia, melena, and weight loss. Labs: normal WBC and Hgb, MCV 106, plt 83, INR 1.4, bili 2.8, AST 70, ALT 80, Alk Phos 124. On chest CT: small RLL abnormality (possibly secondary to aspiration or endobronchial spread of infection), cirrhosis w/ portal hypertension, enhancing lesion in right hepatic dome, diffuse mesenteric edema, and submucosal edema in proximal colon (likely from portal venous colopathy). H/o AIH (follows w/ Dr. Pinto every 6 months on Imuran and spironolactone) and h/ o heavy alcohol use w/ cirrhosis, esophageal varices (banded more than once), thrombocytopenia (thought 2/2 cirrhosis), and GERD (controlled w/ PPI). In 2016 , abd MRI showed 2.4cm probable right hepatic lobe hemangioma and Hep panel was negative. In 2013, AFP was WNL. Last colonoscopy w/ Dr. Holloway in 2013. No GB or pancreas history. No NSAIDs. Denies alcohol. PMH: PMH: autoimmune hepatitis, cirrhosis, esophageal varices/banding, thrombocytopenia, HTN, pneumonia, GERD, hypothyroidism, MRSA abscess FH: Family History: No pertinent hx Social History: Smoke: No ALCOHOL: none (sober since 2013) Drugs: Marijuana ROS: GEN: Denies fevers, chills, sweats HEENT: Denies blurred vision, sore throat CV: +chest pain RESP: Denies shortness of air, cough GI: Per HPI : Denies hematuria, dysuria ENDO: Denies weight changes NEURO: Denies confusion, dizziness MSK: +weakness SKIN: Denies jaundice, pruritus Vitals: Vitals: Vital Signs Date Time Temp Pulse Resp B/P (MAP) Pulse Ox O2 Delivery O2 Flow Rate FiO2 02/10/18 07:00 98.5 78 18 123/75 (91) 96 Room Air 98.5 Labs: Labs: Laboratory Tests Test 02/09/18 17:45 02/10/18 04:13 02/10/18 05:00 White Blood Count 9.1 x10^3/uL (4.0-11.0) 9.2 x10^3/uL (4.0-11.0) Red Blood Count 3.72 x10^6/uL (4.30-5.70) 3.50 x10^6/uL (4.30-5.70) Hemoglobin 14.0 g/dL (13.0-17.5) 13.3 g/dL (13.0-17.5) Hematocrit 39.2 % (39.0-53.0) 37.1 % (39.0-53.0) Mean Corpuscular Volume 106 fL (79-100) 106 fL (79-100) Mean Corpuscular Hemoglobin 38 pg (25-35) 38 pg (25-35) Mean Corpuscular Hemoglobin Concent 36 g/dL (31-37) 36 g/dL (31-37) Red Cell Distribution Width 17.9 % (11.5-14.5) 17.9 % (11.5-14.5) Platelet Count 102 x10^3/uL (140-400) 83 x10^3/uL (140-400) Neutrophils (%) (Auto) 87 % (31-73) 87 % (31-73) Lymphocytes (%) (Auto) 7 % (24-48) 6 % (24-48) Monocytes (%) (Auto) 4 % (0-9) 7 % (0-9) Eosinophils (%) (Auto) 1 % (0-3) 0 % (0-3) Basophils (%) (Auto) 1 % (0-3) 0 % (0-3) Neutrophils # (Auto) 7.9 x10^3uL (1.8-7.7) 8.0 x10^3uL (1.8-7.7) Lymphocytes # (Auto) 0.6 x10^3/uL (1.0-4.8) 0.6 x10^3/uL (1.0-4.8) Monocytes # (Auto) 0.4 x10^3/uL (0.0-1.1) 0.6 x10^3/uL (0.0-1.1) Eosinophils # (Auto) 0.1 x10^3/uL (0.0-0.7) 0.0 x10^3/uL (0.0-0.7) Basophils # (Auto) 0.1 x10^3/uL (0.0-0.2) 0.0 x10^3/uL (0.0-0.2) Segmented Neutrophils % 88 % (35-66) Lymphocytes % 8 % (24-48) Monocytes % 3 % (0-10) Basophils % 1 % (0-3) Platelet Estimate Adequate (ADEQUATE) Prothrombin Time 16.7 SEC (11.7-14.0) Prothromb Time International Ratio 1.4 (0.8-1.1) Sodium Level 139 mmol/L (136-145) 137 mmol/L (136-145) Potassium Level 4.0 mmol/L (3.5-5.1) 3.9 mmol/L (3.5-5.1) Chloride Level 104 mmol/L (98-107) 104 mmol/L (98-107) Carbon Dioxide Level 21 mmol/L (21-32) 22 mmol/L (21-32) Anion Gap 14 (6-14) 11 (6-14) Blood Urea Nitrogen 12 mg/dL (8-26) 16 mg/dL (8-26) Creatinine 1.1 mg/dL (0.7-1.3) 1.2 mg/dL (0.7-1.3) Estimated GFR (Cockcroft-Gault) 66.2 59.9 BUN/Creatinine Ratio 11 (6-20) Glucose Level 127 mg/dL (70-99) 131 mg/dL (70-99) Calcium Level 9.2 mg/dL (8.5-10.1) 8.4 mg/dL (8.5-10.1) Total Bilirubin 2.8 mg/dL (0.2-1.0) Aspartate Amino Transf (AST/SGOT) 70 U/L (15-37) Alanine Aminotransferase (ALT/SGPT) 80 U/L (16-63) Alkaline Phosphatase 124 U/L (46-116) Troponin I Quantitative 0.046 ng/mL (0.000-0.055) Total Protein 8.1 g/dL (6.4-8.2) Albumin 2.9 g/dL (3.4-5.0) Albumin/Globulin Ratio 0.6 (1.0-1.7) Lipase 121 U/L (73-393) Allergies: Coded Allergies: I S O L A T I O N *CONTACT* (Verified Allergy, Unknown, 05/26/17) mrsa No Known Medication Allergies (Verified Allergy, Unknown, 05/26/17) Medications: Current Medications Medications (Trade) Dose Ordered Sig/Torres Route PRN Reason Start Time Stop Time Status Last Admin Dose Admin Sodium Chloride 1,000 ml @ 1,000 mls/hr Q1H IV 02/09/18 17:49 02/09/18 18:48 DC 02/09/18 17:49 Ondansetron HCl (Zofran) 4 mg 1X ONCE IV 02/09/18 18:15 02/09/18 18:16 DC 02/09/18 18:10 Sucralfate (Carafate) 1 gm ONCE ONCE PO 02/09/18 18:30 02/09/18 18:31 DC 02/09/18 19:45 Pantoprazole Sodium (PROTONIX VIAL for IV PUSH) 40 mg 1X ONCE IVP 02/09/18 18:30 02/09/18 18:32 DC 02/09/18 18:30 Ondansetron HCl (Zofran) 4 mg 1X ONCE IV 02/09/18 18:30 02/09/18 18:32 DC 02/09/18 18:30 Iohexol (Omnipaque 300 Mg/ml) 75 ml 1X ONCE IV 02/09/18 18:45 02/09/18 18:50 DC 02/09/18 19:01 Tramadol HCl (Ultram) 50 mg PRN Q6HRS PRN PO MILD TO MODERATE PAIN 02/09/18 21:15 02/09/18 22:06 Metoclopramide HCl (Reglan Vial) 10 mg PRN Q6HRS PRN IV NAUSEA/VOMITING 02/09/18 21:45 02/09/18 22:06 Zolpidem Tartrate (Ambien) 5 mg PRN QHS PRN PO INSOMNIA 02/09/18 21:45 02/09/18 22:06 Imaging: Imaging: Chest CT FINDINGS: Heart is normal in size. No pericardial or pleural effusion. Clear neck base. No enlarged axillary, mediastinal or hilar adenopathy. Patulous esophagus noted. Bilateral gynecomastia. Central airways are patent. No pneumothorax or focal consolidation. Mild subpleural reticular opacities are seen in the right lower lobe, nonspecific but may be from aspiration or endobronchial spread of infection. Cirrhotic changes are seen in the liver. There is a 2.8 x 2.6 cm enhancing lesion in the right hepatic dome. Ill-defined mixed attenuating lesion is seen in the segment 7 of the liver measuring 2.2 x 2.0 cm (series 2 image 55). Another partially exophytic enhancing lesion is seen in the segment 2 of the liver measuring 2.0 x 2.1 cm. Spleen is normal in size. Gallbladder, pancreas, visualized kidneys and adrenals within normal limits. Numerous paraesophageal varices are seen. Recanalization of paraumbilical vein is seen. Submucosal edema is seen in the visualized proximal colon most likely from portal venous colopathy. Diffuse mesenteric edema seen. No ascites. No pneumoperitoneum. No suspicious bony lesion. No pneumomediastinum. IMPRESSION: 1. Very small right lower lobe abnormality as described above may be secondary to aspiration or endobronchial spread of infection. 2. Findings of cirrhosis with evidence of portal venous hypertension. Enhancing lesion the right hepatic dome and segment 2 lesion highly concerning for hepatocellular carcinoma. Nonemergent MRI of the abdomen with IV contrast is recommended. PE: GEN: NAD, up in recliner wearing robe and eating tray of clears HEENT: Atraumatic, PERRL LUNGS: CTAB HEART: RRR ABD: NABS, S/ND/NT EXTREMITY: No edema SKIN: No rashes, no jaundice NEURO/PSYCH: A & O 3 A/P: A/P: N/v/retching, "acid" chest pain Abnormal chest CT - enhancing lesion in right hepatic dome H/o AIH and past alcohol abuse w/ cirrhosis -portal hypertension and esophageal varices - banded yesterday during outpt procedure w/ Dr. Pinto @ [facility] -chronic thrombocytopenia -AFP WNL 2013, Hep panel neg 2016 GERD - on PPI CRC screen - UTD -- N/v resolved, chest pain improved. Seems right hepatic lesion has been previously evaluated w/ MRI in 2017 - thought likely hemangioma. Will recheck AFP. Would resume regular liver meds, change to PO PPI, ADAT, DC per primary, follow- up with Dr. Pinto. RUTH CALDERÓN Feb 10, 2018 08:46
[2018-02-10 11:00] VITALS: BP 140/73
--- NOTE | 2018-02-10 13:10 | PDOC3 ---
Discharge Summary [facility] Date of Admission: Feb 09, 2018 Discharge Date: Feb 10, 2018 Admitting Diagnosis intractable N/V post EGD epigastric abd pain post EGD OUtpt EGD 02/09 esophageal varices banding h/o alcoholic and autoimmune hepatitis ct showed cirrhosis , portal vein hypertension, and 2 liver Mass consider Ca hypothyroidism thrombocytopenia 2/2 cirrhosis likely h/o drug abuse with marijuana Final Diagnosis CONSULTS gi Brief Hospital Course Patient is a 72-year-old who presents to the emergency department for evaluation for N/V. pt has h/o alcoholic and autoimmune hepatitis, got EGD with dr. Pinto today and got esophageal varices banding. after EGD, he started to have epigastric abd pain, constant, 4/10, no radiation , sharp. also has 10 times vomiting after he went home. He did eat some strawberry jello, and the emesis looks mild pinkish, Hb 14 in ER. pt concerned about dehydration, came to ER. no constipation or diarrhea. pt denies cirrhosis, but CT in ER showed cirrhosis, portal vein hypertention and 2 liver mass 2cm suspect Ca. pt feels better overnight, still mild epigastric abd pain. GI consulted, check AFP. pt did have MRI 2017 but only showed one 2.4cm liver mass, now has [address] dc home with protonix, fu with dr. Pinto for the labs results. dc time 35min. GEN.: No apparent distress. Alert and oriented. HEENT: Head is normocephalic, atraumatic NECK: Supple. LUNGS: Clear to auscultation. HEART: RRR, S1, S2 present. Peripheral pulses intact ABDOMEN: Soft, Positive bowel sounds. epigastric area mild tenderness. EXTREMITIES: Without any cyanosis. NEUROLOGIC: Normal speech, normal tone PSYCHIATRIC: Normal affect, normal mood. SKIN: No ulcerations Disposition home CONDITION AT DISCHARGE: Improved, Stable Scheduled Azathioprine (Azathioprine), 3 TAB PO DAILY, (Reported) Levothyroxine Sodium (Levothyroxine Sodium), 1 TAB PO DAILY, (Reported) Multivitamin (Multivitamins), 1 TAB PO DAILY Pantoprazole Sodium (Protonix), 40 MG PO DAILYAC Spironolactone (Spironolactone), 1 TAB PO DAILY, (Reported) [Propranolol Hcl], 10 MG PO BID Discontinued Medications Linezolid (Zyvox), 600 MG PO BID ASHLEY SAMAYOA MD Feb 10, 2018 13:10
[2018-02-11] MEDS ORDERED: PANTOPRAZOLE 40 MG TABLET.DR. PO SCH (07:30)
== END 2018-02-10 14:00 | disposition home or self-care (01) ==
LOC: ER 17:29 → 5 NORTH 19:10
PROVIDERS: ADMIT Internal Medicine; ATTEND Internal Medicine
DX: K91.89 Other postprocedural complications and disorders of digestive system (principal); R11.2 Nausea with vomiting, unspecified; R10.13 Epigastric pain; I85.00 Esophageal varices without bleeding; K75.4 Autoimmune hepatitis; K74.60 Unspecified cirrhosis of liver; K76.6 Portal hypertension; E03.9 Hypothyroidism, unspecified; D69.59 Other secondary thrombocytopenia; Z82.49 Family history of ischemic heart disease and other diseases of the circulatory system
CPT/HCPCS: 36415; 71260; 80048; 80053; 82105; 83690; 84484; 85007; 85025; 85610; 87641; 93005; 96361; 96374; 96375; 96376; 99284; C9113; G0378; J2405; J2765; J7030; Q9967; 99285; G0379

== ENCOUNTER → 2018-03-02 | Outpatient (CLI) | payer MEDICARE ==
[2018-02-10 11:00] VITALS: BP 140/73
[~2018-03-02] MED LIST changes: +GADOBUTROL 7.5 MMOL/7.5 ML VIAL IV ONE
--- NOTE | 2018-03-02 16:18 | RAD ---
MRI of the abdomen without and with contrast 03/02/2018 CLINICAL HISTORY: Cirrhosis of the liver with mass seen on recent CT scan. TECHNIQUE: Unenhanced T2-weighted, in and out of phase T1-weighted and diffusion-weighted axial along with T2 weighted coronal images of the abdomen were obtained. After the intravenous administration of 7.5 cc of Gadavist, enhanced fat saturated T1-weighted axial and coronal images of the abdomen were obtained. FINDINGS: Comparison is made to patient's CT scan of the chest which included the upper abdomen dated 02/09/2018. Additional comparison is made to an MRI of the abdomen dated 09/03/2016. Images from the study are degraded by patient motion. The liver is small measuring 13.3 cm in length. It has a nodular contour consistent with cirrhosis. Multiple rounded and irregular mass lesions are seen scattered throughout both lobes of the liver which appear to be new since the previous MRI examination and demonstrate varying degrees of contrast enhancement. They measure from 8 mm to 7.5 cm in size. The smaller lesions may represent regenerating nodules. The larger lesions located within the right lower liver are concerning for hepatocellular carcinoma. One of the larger lesions (measuring 3.5 cm in greatest diameter) corresponds to the abnormality seen on the patient's recent CT scan. The spleen is enlarged measuring 13.6 cm in length. The pancreas, and adrenal glands are within normal limits. Several small high signal intensity lesions are seen scattered throughout both kidneys. These measure 2 to 4 mm in size. They likely represent cysts. A small amount of ascites is seen surrounding the liver, gallbladder. The abdominal aorta tapers normally. The gallbladder is well-distended. There is no evidence of bowel obstruction. The marrow signal of the visualized bony structures is within normal limits. There is mild cardiomegaly. IMPRESSION: Findings are again seen consistent with cirrhosis of the liver. Multiple mass lesions are seen scattered throughout both lobes of the liver which vary from 8 mm to 7.5 cm in size. The larger lesions are concerning for hepatocellular carcinoma as outlined above. Electronically signed by: Nathaniel Chatterjee MD (03/02/2018 4:14 PM) [id number]
== END | disposition home or self-care (01) ==
LOC: MRI 09:42
PROVIDERS: ATTEND Internal Medicine Gastroenterology
DX: K74.69 Other cirrhosis of liver (principal); I51.7 Cardiomegaly; K82.8 Other specified diseases of gallbladder; R16.1 Splenomegaly, not elsewhere classified
CPT/HCPCS: 74183; A9585

== ENCOUNTER → 2018-03-04 | Outpatient (CLI) | payer MEDICARE ==
[2018-02-10 11:00] VITALS: BP 140/73
[~2018-03-04] MED LIST changes: -GADOBUTROL 7.5 MMOL/7.5 ML VIAL IV ONE
--- NOTE | 2018-03-04 09:19 | RAD ---
Indication: Liver mass TECHNIQUE: Ultrasound abdomen complete with hepatic Dopplers COMPARISON: MRI abdomen from 03/02/2018 FINDINGS: Visualized pancreas is within normal limits. No aortic aneurysm. IVC is patent. Liver is shrunken and demonstrates cirrhotic morphology with coarse echo texture and nodular contour. Ill-defined slightly hyperechoic masses are seen in the right hepatic lobe measuring 5.8 x 3.0 x 7.1 cm and 3.0 x 3.2 cm. Hypoechoic mass is seen measuring 3.1 x 2.6 cm with well-circumscribed margins. Main portal vein is patent with hepatopedal flow. Loss of normal waveform morphology is seen in the hepatic veins. The right and left portal vein are patent. CBD measures 6 mm and is within normal limits. Right kidney measures 10 cm in length without hydronephrosis. Spleen is mildly enlarged measuring 14 cm. Splenic vein is patent. Left kidney measures 11.0 cm in length without hydronephrosis. No gallstones, pericholecystic fluid. Mild thickening of the gallbladder wall likely secondary to chronic liver disease. IMPRESSION: 1. Cirrhosis with multiple hepatic masses which on previous MRI are consistent with multifocal HCC. 2. Abnormal waveform morphology in hepatic veins most like a secondary to cirrhosis. 3. Main portal vein is patent with hepatopedal flow. 4. Evidence of portal venous hypertension as suggested by mild splenomegaly. Electronically signed by: Regan Field DO (03/04/2018 9:15 AM) [facility]
== END | disposition home or self-care (01) ==
LOC: US 06:28
PROVIDERS: ATTEND Internal Medicine Gastroenterology
DX: K74.69 Other cirrhosis of liver (principal); K76.6 Portal hypertension; R16.2 Hepatomegaly with splenomegaly, not elsewhere classified
CPT/HCPCS: 76700; 93975